=== PATIENT | male | born 1965 | race Caucasian/White ===

== ENCOUNTER 2017-11-01 13:02 | Inpatient (IN) | payer OTHER ==
[2017-11-01 16:02] VITALS: BMI 28.9
--- NOTE | 2017-11-01 18:34 | HP ---
COWS - Scale Resting Pulse: 0= [place] 80 or Below Sweatin=Flushed/Facial Moisture Restless Observation: 3= Extraneous Movement Pupil Size: 0= Normal to Room Light Bone or Joint Aches: 1= Mild Discomfort Runny Nose/ Eye Tearin= Runny Nose/Eyes GI Upset > 30mins: 0= None Tremor Observation: 1= Tremor [place], Not Seen Yawning Observation: 4= Several Times/Minute Anxiety or Irritability: 2=Irritable/Anxious Goose Flesh Skin: 3=Piloerection COWS Score: 18 Admission [facility] - HPI Chief Complaint: "I don't feel well, I am here for detox, I anxious and shaky" Allergies/Adverse Reactions: Allergies Allergy/AdvReac Type Severity Reaction Status Date / Time No Known Allergies Allergy Verified 11/01/17 17:41 History of Present Illness: 52 yo male with hx nicotine, IV heroin and crack/ cocaine dependence. Last detox [facility] February 2016. PMHX: depression, HIV+ not on medication, Hep C, reports poor adherence with medial follow Denies hx of seizures. Reports hx of OD x 7 years ago. - Ebola screening Have you traveled outside of the country in the last 21 days: No Have you had contact with anyone from an Ebola affected area: No Have you been sick,other than usual withdrawal symptoms: No - Review of Systems Constitutional: Chills, Loss of Appetite, Unintentional Wgt. Loss EENT: reports: No Symptoms Reported Respiratory: reports: No Symptoms reported Cardiac: reports: No Symptoms Reported GI: reports: No Symptoms Reported Musculoskeletal: reports: No Symptoms Reported Integumentary: reports: No Symptoms Reported Neuro: reports: No Symptoms reported Endocrine: reports: Unexplained Weight Loss Hematology: reports: No Symptoms Reported Psychiatric: reports: Orientated x3, Depressed Other Systems: Reviewed and Negative Patient History - Patient Medical History Hx Anemia: No Hx Asthma: No Hx Chronic Obstructive Pulmonary Disease (COPD): No Hx Cancer: No Hx Cardiac Disorders: No Hx Congestive Heart Failure: No Hx Hypertension: No Hx Hypercholesterolemia: No Hx Pacemaker: No HX Cerebrovascular Accident: No Hx Seizures: No Hx Dementia: No Hx Diabetes: No Hx Gastrointestinal Disorders: No Hx Liver Disease: Yes (Hep C ) Hx Genitourinary Disorders: No Hx Sexually Transmitted Disorders: No Hx Renal Disease (ESRD): No Hx Thyroid Disease: No Hx Human Immunodeficiency Virus (HIV): Yes (NO MEDS IN 2 YRS.SINCE 1984) Hx Hepatitis C: Yes (PENDING TREATMENT) Hx Depression: Yes Hx Suicide Attempt: No Hx Bipolar Disorder: No Hx Schizophrenia: No - Patient Surgical History Past Surgical History: Yes Hx Abdominal Surgery: Yes (peptic ulcer 1994) Other Surgical History: I&D OF ABSCESS RT. 4TH FINGER. - PPD History Previous Implant?: Yes Documented Results: Positive w/o proof Implanted On Prior [facility] Admission?: No Results: CXR neg 08/25 PPD to be Administered?: Yes - Reproductive History Patient is a Female of Child Bearing Age (11 -55 yrs old): No - Smoking Cessation Smoking history: Current every day smoker Have you smoked in the past 12 months: Yes Aproximately how many cigarettes per day: 5 Hx Chewing Tobacco Use: No Initiated information on smoking cessation: Yes 'Breaking Loose' booklet given: 11/01/17 - Substance & Tx. History Hx Alcohol Use: No Hx Substance Use: Yes Substance Use Type: Cocaine, Heroin Hx Substance Use Treatment: Yes ([facility] February 2016) - Substances Abused Heroin Route: Injection Frequency: Daily Amount used: 7-8 bags Age of first use: 15 Date of Last Use: 11/01/17 Crack Route: Smoking Frequency: Daily Amount used: 5 bags Age of first use: 28 Date of Last Use: 10/31/17 Family Disease History - Family Disease History Family Disease History: Diabetes: Father (ALCOHOL), Brother, Other: Father Admission Physical Exam BHS - Vital Signs Vital Signs: Vital Signs - 24 hr 11/01/17 15:56 Temperature 97.1 F L Pulse Rate 69 Respiratory 20 Rate Blood Pressure 105/65 - Physical General Appearance: Yes: Disheveled, Thin, Sweating, Anxious HEENTM: Yes: Hearing grossly Normal, Normal ENT Inspection, Normocephalic, Normal Voice, Pharynx Normal, Tm's normal Respiratory: Yes: Chest Non-Tender, Lungs Clear, Normal Breath Sounds, No Respiratory Distress, No Accessory Muscle Use Neck: Yes: No masses,lesions,Nodules, Trachea in good position Breast: Yes: Breast Exam Deferred Cardiology: Yes: Regular Rhythm, Regular Rate, S1, S2, Murmur Abdominal: Yes: Normal Bowel Sounds, Non Tender, Flat, Soft, Surgical Scar ( when squeeze has mild pus, as per patient thisis chronic and has been occuring for years) Genitourinary: Yes: Within Normal Limits Back: Yes: Normal Inspection Musculoskeletal: Yes: Within Normal Limits Extremities: Yes: Normal Capillary Refill, Normal Inspection, Normal Range of Motion, Non-Tender Neurological: Yes: metal filer II-XII NML intact, Fully Oriented, Alert, Motor Strength 5/5, Depressed Affect Integumentary: Yes: Dry, Warm, Track Dhaliwal (different healing stages forearms, no signs of infection), Other (healed vertical surgical scar on the abdomen, when press area has mild pus without ordor) Lymphatic: Yes: Within Normal Limits - Diagnostic (1) Poor compliance with medication Current Visit: Yes Status: Chronic (2) Cocaine dependence, uncomplicated Current Visit: Yes Status: Chronic (3) Opioid dependence with withdrawal Current Visit: Yes Status: Acute (4) Positive PPD Current Visit: Yes Status: Chronic (5) HIV (human immunodeficiency virus infection) Current Visit: Yes Status: Chronic Comment: Reports no medication taken for 2 years and no follow up with medical care (6) Hepatitis C Current Visit: Yes Status: Chronic Qualifiers: Viral hepatitis chronicity: chronic Comment: Patient reports no treatment (7) Nicotine dependence Current Visit: Yes Status: Chronic Qualifiers: Nicotine product type: cigarettes Substance use status: uncomplicated Qualified Code(s): F17.210 - Nicotine dependence, cigarettes, uncomplicated (8) Weight loss Current Visit: Yes Status: Chronic (9) Murmur, cardiac Current Visit: Yes Status: Chronic (10) Cheilitis Current Visit: Yes Status: Acute (11) Skin infection Current Visit: Yes Status: Chronic Cleared for Admission [facility] - Detox or Rehab [facility] Level of Care: Medically Managed Detox Regimen/Protocol: Methadone [facility] Breath Alcohol Content Breath Alcohol Content: 0 Urine Drug Screen - Results Drug Screen Negative: No Urine Drug Screen Results: SHUN-Cocaine, OPI-Opiates
[2017-11-01] MEDS ORDERED: LOPERAMIDE HCL 2 MG CAPSULE PO PRN (18:59)
[2017-11-01] MEDS ORDERED: MAGNESIUM CITRATE 300 ML BOTTLE PO PRN (18:59)
[2017-11-01] MEDS ORDERED: NICOTINE POLACRILEX 2 MG GUM BC PRN (18:59)
[2017-11-01] MEDS ORDERED: P-EPHED 60MG/TRIPROLIDI 2.5MG TABLET PO PRN (18:59)
[2017-11-01] MEDS ORDERED: MENTHOL/PHENOL 1 EACH UD MM PRN (18:59)
[2017-11-01] MEDS ORDERED: guaiFENesin/D-METHORPHAN HB 10 ML UNIT-DOSE CUPS PO PRN (18:59)
[2017-11-01] MEDS ORDERED: MAG HYDROX/AL HYDROX/SIMETH 30 ML UNIT-DOSE CUP PO PRN (18:59)
[2017-11-01] MEDS ORDERED: MAGNESIUM HYDROX 2400MG/30ML ORAL SUSPENSION 30 ML CUP PO PRN (18:59)
[2017-11-01] MEDS ORDERED: IBUPROFEN 400 MG TABLET (FP) PO PRN (18:59)
[2017-11-01] MEDS ORDERED: METHADONE HCL 10 MG TABLET (FOR DETOX USE ONLY) PO ONE ×2 (18:59→23:00)
[2017-11-01] MEDS ORDERED: ACETAMINOPHEN 325 MG TABLET (FP) PO PRN (18:59)
[2017-11-01] MEDS: diazePAM 5 MG TABLET PO PRN (20:52)
[2017-11-01] MEDS: SULFAMETHOXAZOLE/TRIMETHOPRIM 800MG/160MG D.S. TABLET PO SCH (22:37)
[2017-11-01] MEDS: THIAMINE HCL 100 MG TABLET (FP) PO SCH (22:37)
[2017-11-01 23:58] LABS: URINE APPEARANCE SLCLOUDY; URINE BILIRUBIN NEGATIVE (NEGATIVE); URINE BLOOD NEGATIVE (NEGATIVE); URINE COLOR YELLOW; URINE GLUCOSE (UA) NEGATIVE (NEGATIVE); URINE KETONE NEGATIVE (NEGATIVE); URINE LEUK ESTERASE NEGATIVE (NEGATIVE); URINE NITRITE NEGATIVE (NEGATIVE); URINE PROTEIN NEGATIVE (NEGATIVE)
--- NOTE | 2017-11-02 09:29 | CONSULT ---
[facility] Psychiatric Consult - Data Date of interview: 11/02/17 Admission source: [facility] Identifying data: This is 52 years old male, single, unemployed, homeless, with no psychiatric hospitalization history, with Nicotine, IV Heroin and Crack/ Cocaine dependence. Last detox [facility] February 2016. Substance Abuse History: Smoking Cessation. Smoking history: Current every day smoker. Have you smoked in the past 12 months: Yes. Aproximately how many cigarettes per day: 5. Hx Chewing Tobacco Use: No. Initiated information on smoking cessation: Yes. 'Breaking Loose' booklet given: 11/01/17. - Substance & Tx. History. Hx Alcohol Use: No. Hx Substance Use: Yes. Substance Use Type : Cocaine, Heroin. Hx Substance Use Treatment: Yes ([facility] February 2016). - Substances Abused. Heroin. Route: Injection. Frequency: Daily. Amount used: 7-8 bags. Age of first use: 15. Date of Last Use: 11/01/17. Crack. Route: Smoking. Frequency: Daily. Amount used: 5 bags. Age of first use: 28. Date of Last Use: 10/31/17 Medical History: PPD+ history, HIV+, HepC+, Weight loss history, Cardiac murmur history Psychiatric History: Denies past psychiatric history Physical/Sexual Abuse/Trauma History: Denies Additional Comment: Observation. Detox Unit Care Protocol Mental Status Exam - Mental Status Exam Cognitive Function: Fair Patient Appearance: Unkempt Mood: Sad Affect: Flat Patient Behavior: Sedated Speech Pattern: Delayed Voice Loudness: Mildly Soft/Quiet Thought Process: Circumstantial Thought Disorder: Being Controlled Hallucinations: Denies Suicidal Ideation: Denies Homicidal Ideation: Denies Sleep: Difficulty falling asleep Appetite: Weight loss Muscle strength/Tone: Mild Hypotonicity Gait/Station: Shuffling Additional Comments: Observation. Detox Unit Care Protocol Psychiatric Findings - Problem List ([place] 1, 2,3) (1) Drug-induced mood disorder Current Visit: Yes Status: Suspected (2) Opioid dependence with withdrawal Current Visit: Yes Status: Acute (3) Cocaine dependence, uncomplicated Current Visit: Yes Status: Chronic (4) Nicotine dependence Current Visit: Yes Status: Chronic Qualifiers: Nicotine product type: cigarettes Substance use status: uncomplicated Qualified Code(s): F17.210 - Nicotine dependence, cigarettes, uncomplicated (5) Poor compliance with medication Current Visit: Yes Status: Chronic (6) Weight loss Current Visit: Yes Status: Chronic - Initial Treatment Plan Initial Treatment Plan: Observation. Detox Unit Care Protocol
--- NOTE | 2017-11-02 09:40 | PN ---
BHS COWS - Scale Resting Pulse: 0= [place] 80 or Below Sweatin= Chills/Flushing Restless Observation: 1= Difficult to Sit Still Pupil Size: 1= Pupils >than Normal Bone or Joint Aches: 1= Mild Discomfort Runny Nose/ Eye Tearin= Nasal Congestion GI Upset > 30mins: 1= Stomach Cramp Tremor Observation of Outstretched Hands: 2= Slight Tremor Visible Yawning Observation: 2= >3x During Session Anxiety or Irritability: 2=Irritable/Anxious Goose Flesh Skin: 3=Piloerection COWS Score: 15 BHS Progress Note (SOAP) Subjective: general body ache GI upset stuffy nose restlessness sweat tremor Objective: 11/02/17 09:39 Vital Signs Temperature 97.3 F L 11/02/17 06:18 Pulse Rate 63 11/02/17 06:18 Respiratory Rate 18 11/02/17 06:18 Blood Pressure 131/76 11/02/17 06:18 O2 Sat by Pulse Oximetry (%) Laboratory Last Values Urine Color Yellow 11/01/17 23:40 Urine Appearance Slcloudy 11/01/17 23:40 Urine pH 6.0 (5.0-8.0) 11/01/17 23:40 Ur Specific [place] 1.023 (1.001-1.035) 11/01/17 23:40 Urine Protein Negative (NEGATIVE) 11/01/17 23:40 Urine Glucose (UA) Negative (NEGATIVE) 11/01/17 23:40 Urine Ketones Negative (NEGATIVE) 11/01/17 23:40 Urine Blood Negative (NEGATIVE) 11/01/17 23:40 Urine Nitrite Negative (NEGATIVE) 11/01/17 23:40 Urine Bilirubin Negative (NEGATIVE) 11/01/17 23:40 Urine Urobilinogen 2.0 mg/dL (0.2-1.0) 11/01/17 23:40 Ur Leukocyte Esterase Negative (NEGATIVE) 11/01/17 23:40 lab noted Assessment: 11/02/17 09:39 withdrawal sx Plan: continue detox
[2017-11-02] MEDS ORDERED: METHADONE HCL 10 MG TABLET (FOR DETOX USE ONLY) PO ONE (10:00)
[2017-11-02 10:10] LABS: HEMATOCRIT 34.5 % (35.4-49); HEMOGLOBIN 11.5 GM/dL (11.7-16.9); MCH 29.4 pg (25.7-33.7); MCHC 33.4 g/dl (32.0-35.9); MEAN CELL VOLUME 88.2 fl (80-96); PLATELET COUNT 199 K/MM3 (134-434); RBC 3.91 M/mm3 (4.00-5.60); WHITE BLOOD COUNT 2.8 K/mm3 (4.0-10.0)
[2017-11-02 10:16] LABS: CHLORIDE 107 mmol/L (98-107); POTASSIUM 4.2 mmol/L (3.5-5.1); SODIUM 139 mmol/L (136-145)
[2017-11-02] MEDS: PRENATAL VITAMINS W/ FOLIC ACID TABLET (FP) PO SCH (10:20)
[2017-11-02] MEDS: diazePAM 5 MG TABLET PO PRN (10:20)
[2017-11-02] MEDS: SULFAMETHOXAZOLE/TRIMETHOPRIM 800MG/160MG D.S. TABLET PO SCH ×2 (10:20→22:32)
[2017-11-02] MEDS: NICOTINE 14 MG/24 HOURS TOPICAL PATCH TD SCH (10:22)
[2017-11-02 10:27] LABS: ALBUMIN 2.5 g/dl (3.4-5.0); ALK PHOS 86 U/L (45-117); ANION GAP 6 (8-16); BILIRUBIN,TOTAL 0.4 mg/dL (0.2-1.0); BLOOD UREA NITROGEN 9 mg/dL (7-18); CALCIUM 7.4 mg/dL (8.5-10.1); CO2 26 mmol/L (21-32); CREATININE 0.7 mg/dL (0.7-1.3); GLUCOSE,RANDOM 82 mg/dL (74-106); SGOT/AST 22 U/L (15-37); SGPT/ALT 25 U/L (12-78); TOT PROT 7.6 g/dl (6.4-8.2)
--- NOTE | 2017-11-02 16:12 | EKG ---
Test Reason : Blood Pressure : / mmHG Vent. Rate : 063 BPM Atrial Rate : 063 BPM P-R Int : 126 ms QRS Dur : 070 ms QT Int : 434 ms P-R-T Axes : 065 074 078 degrees QTc Int : 444 ms NORMAL SINUS RHYTHM NORMAL ECG NO PREVIOUS ECGS AVAILABLE Confirmed by BRITTNEY BARRERA MD ([id number]) on 11/02/2017 4:12:21 PM Referred By: Confirmed By:BRITTNEY BARRERA MD
[2017-11-02 16:48] LABS: RPR REACTIVE 1:1 (NONREACTIVE)
[2017-11-02 16:49] LABS: TREPONEMA ANTIBODY PREVIOUSLY REACTIVE (NONREACTIVE)
--- NOTE | 2017-11-02 17:31 | PN ---
BHS Progress Note Note: called by nurse rpr and cofirmatory test +ve, old has been treated in past, pateint qaware.
[2017-11-02] MEDS: THIAMINE HCL 100 MG TABLET (FP) PO SCH (22:32)
[2017-11-03] MEDS ORDERED: METHADONE HCL 5 MG TABLET (FOR DETOX USE ONLY) PO ONE (10:00)
[2017-11-03] MEDS: SULFAMETHOXAZOLE/TRIMETHOPRIM 800MG/160MG D.S. TABLET PO SCH ×2 (10:26→22:29)
[2017-11-03] MEDS: PRENATAL VITAMINS W/ FOLIC ACID TABLET (FP) PO SCH (10:26)
[2017-11-03] MEDS: diazePAM 5 MG TABLET PO PRN (10:27)
[2017-11-03] MEDS: NICOTINE 14 MG/24 HOURS TOPICAL PATCH TD SCH (10:27)
--- NOTE | 2017-11-03 10:41 | PN ---
BHS COWS - Scale Resting Pulse: 1= [place] 81-100 Sweatin= Chills/Flushing Restless Observation: 3= Extraneous Movement Pupil Size: 1= Pupils >than Normal Bone or Joint Aches: 2= Severe Diffuse Aches Runny Nose/ Eye Tearin= Runny Nose/Eyes GI Upset > 30mins: 2= Nausea/Diarrhea Tremor Observation of Outstretched Hands: 2= Slight Tremor Visible Yawning Observation: 1= 1-2x During Session Anxiety or Irritability: 2=Irritable/Anxious Goose Flesh Skin: 0=Smooth Skin COWS Score: 17 S Progress Note (SOAP) Subjective: ALERT,IRRITABLE,ANXIOUS,INTERRUPTED SLEEP,TREMOR,PAIN IN THE BODY,BACK, EXTREMITIES Objective: 11/03/17 10:39 Vital Signs Temperature 99.3 F 11/03/17 10:00 Pulse Rate 93 H 11/03/17 10:00 Respiratory Rate 18 11/03/17 10:00 Blood Pressure 119/71 11/03/17 10:00 O2 Sat by Pulse Oximetry (%) WITHDRAWAL SYMPTOM 11/03/17 10:40 Laboratory Last Values WBC 2.8 K/mm3 (4.0-10.0) L D 11/02/17 06:00 RBC 3.91 M/mm3 (4.00-5.60) L 11/02/17 06:00 Hgb 11.5 GM/dL (11.7-16.9) L 11/02/17 06:00 Hct 34.5 % (35.4-49) L 11/02/17 06:00 MCV 88.2 fl (80-96) 11/02/17 06:00 MCH 29.4 pg (25.7-33.7) 11/02/17 06:00 MCHC 33.4 g/dl (32.0-35.9) 11/02/17 06:00 RDW 16.0 % (11.9-15.9) H 11/02/17 06:00 Plt Count 199 K/MM3 (134-434) D 11/02/17 06:00 MPV 8.0 fl (7.5-11.1) D 11/02/17 06:00 Sodium 139 mmol/L (136-145) 11/02/17 06:00 Potassium 4.2 mmol/L (3.5-5.1) 11/02/17 06:00 Chloride 107 mmol/L (98-107) 11/02/17 06:00 Carbon Dioxide 26 mmol/L (21-32) 11/02/17 06:00 Anion Gap 6 (8-16) L 11/02/17 06:00 BUN 9 mg/dL (7-18) D 11/02/17 06:00 Creatinine 0.7 mg/dL (0.7-1.3) 11/02/17 06:00 Creat Clearance w eGFR > 60 (>60) 11/02/17 06:00 Random Glucose 82 mg/dL (74-106) 11/02/17 06:00 Calcium 7.4 mg/dL (8.5-10.1) L 11/02/17 06:00 Total Bilirubin 0.4 mg/dL (0.2-1.0) D 11/02/17 06:00 AST 22 U/L (15-37) 11/02/17 06:00 ALT 25 U/L (12-78) D 11/02/17 06:00 Alkaline Phosphatase 86 U/L (45-117) 11/02/17 06:00 Total Protein 7.6 g/dl (6.4-8.2) 11/02/17 06:00 Albumin 2.5 g/dl (3.4-5.0) L D 11/02/17 06:00 Urine Color Yellow 11/01/17 23:40 Urine Appearance Slcloudy 11/01/17 23:40 Urine pH 6.0 (5.0-8.0) 11/01/17 23:40 Ur Specific [place] 1.023 (1.001-1.035) 11/01/17 23:40 Urine Protein Negative (NEGATIVE) 11/01/17 23:40 Urine Glucose (UA) Negative (NEGATIVE) 11/01/17 23:40 Urine Ketones Negative (NEGATIVE) 11/01/17 23:40 Urine Blood Negative (NEGATIVE) 11/01/17 23:40 Urine Nitrite Negative (NEGATIVE) 11/01/17 23:40 Urine Bilirubin Negative (NEGATIVE) 11/01/17 23:40 Urine Urobilinogen 2.0 mg/dL (0.2-1.0) 11/01/17 23:40 Ur Leukocyte Esterase Negative (NEGATIVE) 11/01/17 23:40 RPR Titer Reactive 1:1 (NONREACTIVE) H 11/02/17 06:00 T.pallidum Ab (MHA) Previously reactive (NONREACTIVE) 11/02/17 06:00 11/03/17 10:41 PREVIOUSLY TREATED FOR SYPHILIS Assessment: 11/03/17 10:42 WITHDRAWAL SYMPTOM Plan: CONTINUE DETOX
[2017-11-03] MEDS: THIAMINE HCL 100 MG TABLET (FP) PO SCH (22:29)
[2017-11-04] MEDS ORDERED: METHADONE HCL 5 MG TABLET (FOR DETOX USE ONLY) PO ONE (10:00)
[2017-11-04] MEDS: SULFAMETHOXAZOLE/TRIMETHOPRIM 800MG/160MG D.S. TABLET PO SCH ×2 (10:47→22:04)
[2017-11-04] MEDS: PRENATAL VITAMINS W/ FOLIC ACID TABLET (FP) PO SCH (10:47)
[2017-11-04] MEDS: NICOTINE 14 MG/24 HOURS TOPICAL PATCH TD SCH (10:48)
[2017-11-04] MEDS: diazePAM 5 MG TABLET PO PRN (17:37)
--- NOTE | 2017-11-04 20:26 | PN ---
BHS Progress Note (SOAP) Subjective: shakes sleep disturbance nasal congestion Objective: 11/04/17 20:26 A & O x 3 Vital Signs Temperature 96.1 F L 11/04/17 18:11 Pulse Rate 78 11/04/17 18:11 Respiratory Rate 20 11/04/17 18:11 Blood Pressure 108/59 11/04/17 18:11 O2 Sat by Pulse Oximetry (%) Assessment: 11/04/17 20:26 withdrawal sx Plan: continue detox
[2017-11-04] MEDS: THIAMINE HCL 100 MG TABLET (FP) PO SCH (22:04)
[2017-11-04] MEDS: hydrOXYzine PAMOATE 50 MG CAPSULE (FP) PO PRN (22:05)
[2017-11-05] MEDS ORDERED: METHADONE HCL 10 MG TABLET (FOR DETOX USE ONLY) PO ONE (10:00)
[2017-11-05] MEDS: SULFAMETHOXAZOLE/TRIMETHOPRIM 800MG/160MG D.S. TABLET PO SCH ×2 (10:29→22:21)
[2017-11-05] MEDS: PRENATAL VITAMINS W/ FOLIC ACID TABLET (FP) PO SCH (10:29)
[2017-11-05] MEDS: NICOTINE 14 MG/24 HOURS TOPICAL PATCH TD SCH (10:29)
--- NOTE | 2017-11-05 11:18 | PN ---
BHS Progress Note (SOAP) Subjective: alert oriented x 3 calm social with peers Objective: 11/05/17 11:16 Vital Signs Temperature 97.1 F L 11/05/17 10:00 Pulse Rate 80 11/05/17 10:00 Respiratory Rate 18 11/05/17 10:00 Blood Pressure 133/63 11/05/17 10:00 O2 Sat by Pulse Oximetry (%) Vital Signs Temperature 97.1 F L 11/05/17 10:00 Pulse Rate 80 11/05/17 10:00 Respiratory Rate 18 11/05/17 10:00 Blood Pressure 133/63 11/05/17 10:00 O2 Sat by Pulse Oximetry (%) Laboratory Last Values WBC 2.8 K/mm3 (4.0-10.0) L D 11/02/17 06:00 RBC 3.91 M/mm3 (4.00-5.60) L 11/02/17 06:00 Hgb 11.5 GM/dL (11.7-16.9) L 11/02/17 06:00 Hct 34.5 % (35.4-49) L 11/02/17 06:00 MCV 88.2 fl (80-96) 11/02/17 06:00 MCH 29.4 pg (25.7-33.7) 11/02/17 06:00 MCHC 33.4 g/dl (32.0-35.9) 11/02/17 06:00 RDW 16.0 % (11.9-15.9) H 11/02/17 06:00 Plt Count 199 K/MM3 (134-434) D 11/02/17 06:00 MPV 8.0 fl (7.5-11.1) D 11/02/17 06:00 Sodium 139 mmol/L (136-145) 11/02/17 06:00 Potassium 4.2 mmol/L (3.5-5.1) 11/02/17 06:00 Chloride 107 mmol/L (98-107) 11/02/17 06:00 Carbon Dioxide 26 mmol/L (21-32) 11/02/17 06:00 Anion Gap 6 (8-16) L 11/02/17 06:00 BUN 9 mg/dL (7-18) D 11/02/17 06:00 Creatinine 0.7 mg/dL (0.7-1.3) 11/02/17 06:00 Creat Clearance w eGFR > 60 (>60) 11/02/17 06:00 Random Glucose 82 mg/dL (74-106) 11/02/17 06:00 Calcium 7.4 mg/dL (8.5-10.1) L 11/02/17 06:00 Total Bilirubin 0.4 mg/dL (0.2-1.0) D 11/02/17 06:00 AST 22 U/L (15-37) 11/02/17 06:00 ALT 25 U/L (12-78) D 11/02/17 06:00 Alkaline Phosphatase 86 U/L (45-117) 11/02/17 06:00 Total Protein 7.6 g/dl (6.4-8.2) 11/02/17 06:00 Albumin 2.5 g/dl (3.4-5.0) L D 11/02/17 06:00 Urine Color Yellow 11/01/17 23:40 Urine Appearance Slcloudy 11/01/17 23:40 Urine pH 6.0 (5.0-8.0) 11/01/17 23:40 Ur Specific [place] 1.023 (1.001-1.035) 11/01/17 23:40 Urine Protein Negative (NEGATIVE) 11/01/17 23:40 Urine Glucose (UA) Negative (NEGATIVE) 11/01/17 23:40 Urine Ketones Negative (NEGATIVE) 11/01/17 23:40 Urine Blood Negative (NEGATIVE) 11/01/17 23:40 Urine Nitrite Negative (NEGATIVE) 11/01/17 23:40 Urine Bilirubin Negative (NEGATIVE) 11/01/17 23:40 Urine Urobilinogen 2.0 mg/dL (0.2-1.0) 11/01/17 23:40 Ur Leukocyte Esterase Negative (NEGATIVE) 11/01/17 23:40 RPR Titer Reactive 1:1 (NONREACTIVE) H 11/02/17 06:00 T.pallidum Ab (MHA) Previously reactive (NONREACTIVE) 11/02/17 06:00 lab noted Assessment: 11/05/17 11:17 mild withdrawal sx Plan: medically supervised detox
[2017-11-05] MEDS: NYSTATIN 500,000 UNITS/5 ML SUSPENSION PO SCH ×2 (17:40)
[2017-11-05] MEDS: CALCIUM (OYSTER SHELL) 500 MG TABLET (FP) PO SCH (17:40)
[2017-11-05] MEDS: hydrOXYzine PAMOATE 50 MG CAPSULE (FP) PO PRN (22:21)
[2017-11-05] MEDS: THIAMINE HCL 100 MG TABLET (FP) PO SCH (22:21)
[2017-11-06] MEDS: NYSTATIN 500,000 UNITS/5 ML SUSPENSION PO SCH ×2 (00:03→05:48)
[2017-11-06] MEDS ORDERED: METHADONE HCL 5 MG TABLET (FOR DETOX USE ONLY) PO ONE (06:00)
--- NOTE | 2017-11-06 09:24 | DS ---
[facility] Detox Discharge Summary Admission Date: 11/01/17 Discharge Date: 11/06/17 - History Present History: Cocaine Dependence, Opioid Dependence Additional Comments: FOLLOW UP WITH AFTER [facility] PROGRAM ARRANGEMENT Pertinent Past History: HIV HEPATITIS C NICOTINE DEPENDENCE WEIGHT LOSS - Physical Exam Results Vital Signs: Vital Signs Temperature 96.7 F L 11/06/17 06:05 Pulse Rate 67 11/06/17 06:05 Respiratory Rate 16 11/06/17 06:05 Blood Pressure 107/60 11/06/17 06:05 O2 Sat by Pulse Oximetry (%) Pertinent Admission Physical Exam Findings: WITHDRAWAL SIGNS AND SYMPTOM - Treatment Hospital Course: Detox Protocol Followed, Detoxed Safely, Responded well, Discharged Condition Good, Rehab Referral Accepted Patient has Accepted a Rehab Referral to: [facility] - Medication Discharge Medications: Ambulatory Orders NK [No Known Home Medication] 08/23/15 - Diagnosis (1) Opioid dependence with withdrawal Current Visit: Yes Status: Acute (2) Cocaine dependence, uncomplicated Current Visit: Yes Status: Chronic (3) HIV (human immunodeficiency virus infection) Current Visit: Yes Status: Chronic (4) Hepatitis C Current Visit: Yes Status: Chronic Qualifiers: Viral hepatitis chronicity: chronic (5) Nicotine dependence Current Visit: Yes Status: Chronic Qualifiers: Nicotine product type: cigarettes Substance use status: uncomplicated Qualified Code(s): F17.210 - Nicotine dependence, cigarettes, uncomplicated (6) Weight loss Current Visit: Yes Status: Chronic - AMA Did Patient Leave Against Medical Advice: No
[2017-11-06] MEDS: PRENATAL VITAMINS W/ FOLIC ACID TABLET (FP) PO SCH (10:55)
[2017-11-06] MEDS: CALCIUM (OYSTER SHELL) 500 MG TABLET (FP) PO SCH (10:55)
[2017-11-06] MEDS: SULFAMETHOXAZOLE/TRIMETHOPRIM 800MG/160MG D.S. TABLET PO SCH (10:55)
[2017-11-06] MEDS: NICOTINE 14 MG/24 HOURS TOPICAL PATCH TD SCH (10:55)
[2017-11-06 11:01] VITALS: BP 106/69; PULSE 80; TEMP 97.1
== END 2017-11-06 11:01 | disposition home or self-care (01) | DRG 773 ==
LOC: YASAS 13:02 → Y6N 18:16
PROVIDERS: ADMIT Internal Medicine; ATTEND Internal Medicine
PROC: HZ2ZZZZ Detoxification Services for Substance Abuse Treatment (ICD-10-PCS; principal; 2017-11-01)
DX: F11.23 Opioid dependence with withdrawal (principal); F14.20 Cocaine dependence, uncomplicated; F17.210 Nicotine dependence, cigarettes, uncomplicated; F19.24 Other psychoactive substance dependence with psychoactive substance-induced mood disorder; Z21 Asymptomatic human immunodeficiency virus [HIV] infection status; R00.1 Bradycardia, unspecified; R63.4 Abnormal weight loss; Z68.28 Body mass index [BMI] 28.0-28.9, adult; Z59.0 Homelessness; K13.0 Diseases of lips
CPT/HCPCS: 36415; 71046-TC-FY; 80053; 81003; 85027; 86593; 86780; 93005; 93010

== ENCOUNTER 2017-12-18 17:28 | Inpatient (IN) | payer OTHER ==
[2017-12-18 19:32] VITALS: BMI 19.2
[2017-12-18] MEDS ORDERED: METHADONE HCL 10 MG TABLET (FOR DETOX USE ONLY) PO ONE ×2 (23:00→23:28)
--- NOTE | 2017-12-18 23:20 | HP ---
COWS - Scale Resting Pulse: 0= [place] 80 or Below Sweatin=Flushed/Facial Moisture Restless Observation: 1= Difficult to Sit Still Pupil Size: 1= Pupils >than Normal Bone or Joint Aches: 2= Severe Diffuse Aches Runny Nose/ Eye Tearin= Runny Nose/Eyes GI Upset > 30mins: 3= Vomiting/Diarrhea (DIARRRHEA X 3) Tremor Observation: 2= Slight Tremor Visible Yawning Observation: 1= 1-2x During Session Anxiety or Irritability: 4=Extreme Anxiety Goose Flesh Skin: 0=Smooth Skin COWS Score: 18 Admission [facility] Chief Complaint: Heroin withdrawal symptoms Allergies/Adverse Reactions: Allergies Allergy/AdvReac Type Severity Reaction Status Date / Time No Known Allergies Allergy Verified 11/01/17 17:41 History of Present Illness: 52 years old male with a long history of heroin dependence is seeking admission to detox. Patient has been to previous detox, last 11/01- 11/06/2017. Reports insignificant period of sobriety. Patient has medical history of HIV+, Hep. C, seizures, Depression and PPD positive. He denies suicidal ideation at this time. Exam Limitations: No Limitations - Ebola screening Have you traveled outside of the country in the last 21 days: No Have you had contact with anyone from an Ebola affected area: No Have you been sick,other than usual withdrawal symptoms: No Do you have a fever: No - Review of Systems Constitutional: Loss of Appetite, Malaise, Night Sweats, Changes in sleep, Weakness EENT: reports: Nose Congestion Respiratory: reports: No Symptoms reported Cardiac: reports: No Symptoms Reported GI: reports: Diarrhea (x 4), Nausea, Poor Appetite, Poor Fluid Intake, Abdominal cramping : reports: No Symptoms Reported Musculoskeletal: reports: No Symptoms Reported Integumentary: reports: Dryness, Flushing, Pruritus Neuro: reports: Tingling, Tremors Endocrine: reports: No Symptoms Reported Hematology: reports: No Symptoms Reported Psychiatric: reports: Agitated, Anxious, Depressed Other Systems: Reviewed and Negative Patient History - Patient Medical History Hx Anemia: No Hx Asthma: No Hx Chronic Obstructive Pulmonary Disease (COPD): No Hx Cancer: No Hx Cardiac Disorders: No Hx Congestive Heart Failure: No Hx Hypertension: No Hx Hypercholesterolemia: No Hx Pacemaker: No HX Cerebrovascular Accident: No Hx Seizures: Yes (Not on medication) Hx Dementia: No Hx Diabetes: No Hx Gastrointestinal Disorders: No Hx Liver Disease: Yes (Hep C ) Hx Genitourinary Disorders: No Hx Sexually Transmitted Disorders: No Hx Renal Disease (ESRD): No Hx Thyroid Disease: No Hx Human Immunodeficiency Virus (HIV): Yes (NOT ON MEDICATION SINCE 1984) Hx Hepatitis C: Yes (PENDING TREATMENT) Hx Depression: Yes (Not on medication) Hx Suicide Attempt: No Hx Bipolar Disorder: No Hx Schizophrenia: No - Patient Surgical History Past Surgical History: Yes Hx Abdominal Surgery: Yes (peptic ulcer 1994) Other Surgical History: I&D OF ABSCESS RT. 4TH FINGER. - PPD History Results: CXR neg 08/25 - Smoking Cessation Smoking history: Current every day smoker Have you smoked in the past 12 months: Yes Aproximately how many cigarettes per day: 10 Hx Chewing Tobacco Use: No Initiated information on smoking cessation: Yes 'Breaking Loose' booklet given: 12/18/17 - Substance & Tx. History Hx Alcohol Use: No Hx Substance Use: Yes Substance Use Type: Heroin Hx Substance Use Treatment: Yes ([facility]) - Substances Abused Heroin Route: Injection Frequency: Daily Amount used: 15 BAGS Age of first use: 14 Date of Last Use: 12/18/17 Cocaine Route: Smoking Frequency: Daily Amount used: 6 BAGS Age of first use: 16 Date of Last Use: 12/18/17 Family Disease History - Family Disease History Family Disease History: Diabetes: Father (ALCOHOL), Brother, Other: Father Admission Physical Exam S - Vital Signs Vital Signs: Vital Signs - 24 hr 12/18/17 19:30 Temperature 97.7 F Pulse Rate 80 Respiratory 18 Rate Blood Pressure 155/90 - Physical General Appearance: Yes: Moderate Distress, Thin, Tremorous, Irritable, Sweating , Anxious HEENTM: Yes: EOMI, Normocephalic, Normal Voice, MIA Respiratory: Yes: Lungs Clear, Normal Breath Sounds, No Respiratory Distress Neck: Yes: Supple Breast: Yes: Breast Exam Deferred Cardiology: Yes: Regular Rhythm, Regular Rate, S1, S2 Abdominal: Yes: Normal Bowel Sounds, Soft Genitourinary: Yes: Within Normal Limits Back: Yes: Normal Inspection Musculoskeletal: Yes: Within Normal Limits Neurological: Yes: Alert, Normal Mood/Affect Integumentary: Yes: Dry, Pale, Track Dhaliwal (both legs and hands) Lymphatic: Yes: Within Normal Limits - Diagnostic (1) Seizures Current Visit: Yes Status: Chronic (2) Opioid dependence with withdrawal Current Visit: Yes Status: Chronic (3) Cocaine dependence, uncomplicated Current Visit: Yes Status: Chronic (4) HIV (human immunodeficiency virus infection) Current Visit: Yes Status: Chronic Comment: Reports no medication taken for 2 years and no follow up with medical care (5) Hepatitis C Current Visit: Yes Status: Chronic Qualifiers: Viral hepatitis chronicity: chronic Comment: Patient reports no treatment (6) Nicotine dependence Current Visit: Yes Status: Chronic Qualifiers: Nicotine product type: cigarettes Substance use status: uncomplicated Qualified Code(s): F17.210 - Nicotine dependence, cigarettes, uncomplicated (7) Poor compliance with medication Current Visit: No Status: Chronic (8) Positive PPD Current Visit: Yes Status: Chronic (9) Skin infection Current Visit: No Status: Chronic (10) Weight loss Current Visit: Yes Status: Chronic Cleared for Admission S - Detox or Rehab [facility] Level of Care: Medically Managed Detox Regimen/Protocol: Methadone [facility] Breath Alcohol Content Breath Alcohol Content: 0 Urine Drug Screen - Results Drug Screen Negative: No Urine Drug Screen Results: SHUN-Cocaine, OPI-Opiates
[2017-12-18] MEDS ORDERED: MAGNESIUM CITRATE 300 ML BOTTLE PO PRN (23:28)
[2017-12-18] MEDS ORDERED: ACETAMINOPHEN 325 MG TABLET (FP) PO PRN (23:28)
[2017-12-18] MEDS ORDERED: P-EPHED 60MG/TRIPROLIDI 2.5MG TABLET PO PRN (23:28)
[2017-12-18] MEDS ORDERED: LOPERAMIDE HCL 2 MG CAPSULE PO PRN (23:28)
[2017-12-18] MEDS ORDERED: MENTHOL/PHENOL 1 EACH UD MM PRN (23:28)
[2017-12-18] MEDS ORDERED: MAG HYDROX/AL HYDROX/SIMETH 30 ML UNIT-DOSE CUP PO PRN (23:28)
[2017-12-18] MEDS ORDERED: NICOTINE POLACRILEX 2 MG GUM BC PRN (23:28)
[2017-12-18] MEDS ORDERED: MAGNESIUM HYDROX 2400MG/30ML ORAL SUSPENSION 30 ML CUP PO PRN (23:28)
[2017-12-18] MEDS ORDERED: diazePAM 5 MG TABLET PO PRN (23:28)
[2017-12-18] MEDS ORDERED: guaiFENesin/D-METHORPHAN HB 10 ML UNIT-DOSE CUPS PO PRN (23:28)
[2017-12-19] MEDS ORDERED: METHADONE HCL 10 MG TABLET (FOR DETOX USE ONLY) PO ONE ×4 (02:07→23:00)
--- NOTE | 2017-12-19 10:11 | PN ---
[facility] COWS - Scale Resting Pulse: 0= [place] 80 or Below Sweatin= Chills/Flushing Restless Observation: 3= Extraneous Movement Pupil Size: 1= Pupils >than Normal Bone or Joint Aches: 2= Severe Diffuse Aches Runny Nose/ Eye Tearin= Runny Nose/Eyes GI Upset > 30mins: 2= Nausea/Diarrhea Tremor Observation of Outstretched Hands: 2= Slight Tremor Visible Yawning Observation: 1= 1-2x During Session Anxiety or Irritability: 2=Irritable/Anxious Goose Flesh Skin: 0=Smooth Skin COWS Score: 16 BHS Progress Note (SOAP) Subjective: ALERT,IRRITABLE,ANXIOUS,INTERRUPTED SLEEP,TREMOR,PAIN IN THE BODY AND BACK Objective: 12/19/17 10:10 Vital Signs Temperature 97 F L 12/19/17 06:13 Pulse Rate 90 12/19/17 06:13 Respiratory Rate 18 12/19/17 06:13 Blood Pressure 114/68 12/19/17 06:13 O2 Sat by Pulse Oximetry (%) EKG NSR,NORMAL ECG LABS PENDING Assessment: 12/19/17 10:11 WITHDRAWAL SYMPTOM Plan: CONTINUE DETOX
[2017-12-19 10:26] LABS: HEMATOCRIT 29.3 % (35.4-49); HEMOGLOBIN 10.2 GM/dL (11.7-16.9); MCH 31.4 pg (25.7-33.7); MCHC 34.8 g/dl (32.0-35.9); MEAN CELL VOLUME 90.2 fl (80-96); MEAN PLT VOLUME 8.1 fl (7.5-11.1); PLATELET COUNT 176 K/MM3 (134-434); RBC 3.25 M/mm3 (4.00-5.60); WHITE BLOOD COUNT 2.4 K/mm3 (4.0-10.0)
--- NOTE | 2017-12-19 10:41 | EKG ---
Test Reason : Blood Pressure : / mmHG Vent. Rate : 075 BPM Atrial Rate : 075 BPM P-R Int : 124 ms QRS Dur : 078 ms QT Int : 380 ms P-R-T Axes : 073 075 079 degrees QTc Int : 424 ms NORMAL SINUS RHYTHM NORMAL ECG WHEN COMPARED WITH ECG OF 01-NOV-2017 21:01, NO SIGNIFICANT CHANGE WAS FOUND Confirmed by MD Hawthorne Daniel ([id number]) on 12/19/2017 10:41:04 AM Referred By: Confirmed By:Luis Alberto Hawthorne MD
[2017-12-19] MEDS: PRENATAL VITAMINS W/ FOLIC ACID TABLET (FP) PO SCH (10:43)
[2017-12-19] MEDS: NICOTINE 14 MG/24 HOURS TOPICAL PATCH TD SCH (10:43)
[2017-12-19 10:50] LABS: ANION GAP 8 (8-16); BILIRUBIN,TOTAL 0.2 mg/dL (0.2-1.0); BLOOD UREA NITROGEN 15 mg/dL (7-18); CALCIUM 8.3 mg/dL (8.5-10.1); CHLORIDE 101 mmol/L (98-107); CO2 29 mmol/L (21-32); CREATININE 0.7 mg/dL (0.7-1.3); GLUCOSE,RANDOM 95 mg/dL (74-106); POTASSIUM 4.1 mmol/L (3.5-5.1); SGOT/AST 25 U/L (15-37); SGPT/ALT 22 U/L (12-78); SODIUM 138 mmol/L (136-145); TOT PROT 7.9 g/dl (6.4-8.2)
[2017-12-19 10:51] LABS: ALK PHOS 71 U/L (45-117)
--- NOTE | 2017-12-19 11:45 | CONSULT ---
[facility] Psychiatric Consult - Data Date of interview: 12/19/17 Admission source: [facility] Identifying data: Pt. is a 52 year old single male, without kids, unemployed, and living with his sister. This is one of multiple admissions for patient. Pt. admitted to for opiate and cocaine dependence. Substance Abuse History: Following information confirmed with Mr. Barkley: Smoking Cessation. Smoking history: Current every day smoker. Have you smoked in the past 12 months: Yes. Aproximately how many cigarettes per day: 10. Hx Chewing Tobacco Use: No. Initiated information on smoking cessation: Yes. ' Breaking Loose' booklet given: 12/18/17. - Substance & Tx. History. Hx Alcohol Use: No. Hx Substance Use: Yes. Substance Use Type: Heroin. Hx Substance Use Treatment: Yes ([facility]). - Substances Abused. Heroin. Route: Injection. Frequency: Daily. Amount used: 15 BAGS. Age of first use: 14. Date of Last Use: 12/18/17. Cocaine. Route: Smoking. Frequency: Daily. Amount used: 6 BAGS. Age of first use: 16. Date of Last Use: 12/18/17 Medical History: Seizures, Hep C Psychiatric History: Pt. presents as fatigue and is unable to give a cohesive psychiatric history. Pt. reports two psychiatric hospitalizations, most recently at [facility] in 2017 for depression. Pt. is nonadherent to medications and outpatient care. Pt. denies h/o suicide attempt. Pt. currently denies suicidal and homicidal ideation. Physical/Sexual Abuse/Trauma History: Denies. Mental Status Exam - Mental Status Exam Alert and Oriented to: Time, Place, Person Cognitive Function: Fair Patient Appearance: Unkempt Mood: Withdrawn Affect: Mood Congruent Patient Behavior: Sedated, Fatigued, Guarded Speech Pattern: Delayed Voice Loudness: Moderately Soft/Quiet Thought Process: Goal Oriented Thought Disorder: Not Present Hallucinations: Denies Suicidal Ideation: Denies Insight/Judgement: Poor Sleep: Fair Appetite: Fair Muscle strength/Tone: Normal Gait/Station: Normal Psychiatric Findings - Problem List (Switchback 1, 2,3) (1) Cocaine dependence, uncomplicated Current Visit: Yes Status: Acute (2) Nicotine dependence Current Visit: Yes Status: Chronic Qualifiers: Nicotine product type: cigarettes Substance use status: uncomplicated Qualified Code(s): F17.210 - Nicotine dependence, cigarettes, uncomplicated (3) Opioid dependence with withdrawal Current Visit: Yes Status: Acute (4) Drug-induced mood disorder Current Visit: Yes Status: Acute - Initial Treatment Plan Initial Treatment Plan: Psychoeducation provided. Detoxification provided. Observation.
[2017-12-19] MEDS: THIAMINE HCL 100 MG TABLET (FP) PO SCH (22:25)
[2017-12-19] MEDS: diazePAM 5 MG TABLET PO PRN (22:25)
--- NOTE | 2017-12-20 09:56 | PN ---
[facility] COWS - Scale Resting Pulse: 1= [place] 81-100 Sweatin= Chills/Flushing Restless Observation: 3= Extraneous Movement Pupil Size: 1= Pupils >than Normal Bone or Joint Aches: 2= Severe Diffuse Aches Runny Nose/ Eye Tearin= Runny Nose/Eyes GI Upset > 30mins: 2= Nausea/Diarrhea Tremor Observation of Outstretched Hands: 2= Slight Tremor Visible Yawning Observation: 1= 1-2x During Session Anxiety or Irritability: 2=Irritable/Anxious Goose Flesh Skin: 0=Smooth Skin COWS Score: 17 BHS Progress Note (SOAP) Subjective: ALERT,IRRITABLE,ANXIOUS,INTERRUPTED SLEEP,PAIN IN THE BODY Objective: 12/20/17 09:54 Vital Signs Temperature 97.7 F 12/20/17 09:15 Pulse Rate 93 H 12/20/17 09:15 Respiratory Rate 20 12/20/17 09:15 Blood Pressure 132/76 12/20/17 09:15 O2 Sat by Pulse Oximetry (%) Laboratory Last Values WBC 2.4 K/mm3 (4.0-10.0) L 12/19/17 07:00 RBC 3.25 M/mm3 (4.00-5.60) L 12/19/17 07:00 Hgb 10.2 GM/dL (11.7-16.9) L D 12/19/17 07:00 Hct 29.3 % (35.4-49) L D 12/19/17 07:00 MCV 90.2 fl (80-96) 12/19/17 07:00 MCH 31.4 pg (25.7-33.7) 12/19/17 07:00 MCHC 34.8 g/dl (32.0-35.9) 12/19/17 07:00 RDW 16.0 % (11.9-15.9) H 12/19/17 07:00 Plt Count 176 K/MM3 (134-434) 12/19/17 07:00 MPV 8.1 fl (7.5-11.1) 12/19/17 07:00 Sodium 138 mmol/L (136-145) 12/19/17 07:00 Potassium 4.1 mmol/L (3.5-5.1) 12/19/17 07:00 Chloride 101 mmol/L (98-107) 12/19/17 07:00 Carbon Dioxide 29 mmol/L (21-32) 12/19/17 07:00 Anion Gap 8 (8-16) 12/19/17 07:00 BUN 15 mg/dL (7-18) D 12/19/17 07:00 Creatinine 0.7 mg/dL (0.7-1.3) 12/19/17 07:00 Creat Clearance w eGFR > 60 (>60) 12/19/17 07:00 Random Glucose 95 mg/dL (74-106) 12/19/17 07:00 Calcium 8.3 mg/dL (8.5-10.1) L 12/19/17 07:00 Total Bilirubin 0.2 mg/dL (0.2-1.0) D 12/19/17 07:00 AST 25 U/L (15-37) 12/19/17 07:00 ALT 22 U/L (12-78) 12/19/17 07:00 Alkaline Phosphatase 71 U/L (45-117) 12/19/17 07:00 Total Protein 7.9 g/dl (6.4-8.2) 12/19/17 07:00 Albumin 3.0 g/dl (3.4-5.0) L 12/19/17 07:00 Assessment: 12/20/17 09:54 WITHDRAWAL SYMPTOM Plan: CONTINUE DETOX,ANEMIA,HIV,FERROUS SULFATE 325 MGS PO TID,NUTRITION SUPPLEMENT
[2017-12-20] MEDS ORDERED: METHADONE HCL 10 MG TABLET (FOR DETOX USE ONLY) PO ONE (10:00)
[2017-12-20] MEDS ORDERED: METHADONE HCL 5 MG TABLET (FOR DETOX USE ONLY) PO ONE (10:00)
[2017-12-20] MEDS: PRENATAL VITAMINS W/ FOLIC ACID TABLET (FP) PO SCH (10:29)
[2017-12-20] MEDS: NICOTINE 14 MG/24 HOURS TOPICAL PATCH TD SCH (10:29)
[2017-12-20] MEDS: FERROUS SO4 325 MG TABLET (FP) PO SCH ×2 (13:00→18:15)
[2017-12-20 15:02] LABS: RPR REACTIVE 1:1 (NONREACTIVE)
[2017-12-20 15:08] LABS: TREPONEMA ANTIBODY PREVIOUSLY REACTIVE (NONREACTIVE)
[2017-12-20] MEDS: THIAMINE HCL 100 MG TABLET (FP) PO SCH (22:29)
[2017-12-20] MEDS: diazePAM 5 MG TABLET PO PRN (22:30)
[2017-12-21] MEDS: diazePAM 5 MG TABLET PO PRN ×3 (03:41→22:15)
[2017-12-21] MEDS: FERROUS SO4 325 MG TABLET (FP) PO SCH ×3 (08:30→17:46)
[2017-12-21] MEDS ORDERED: METHADONE HCL 5 MG TABLET (FOR DETOX USE ONLY) PO ONE ×2 (10:00)
[2017-12-21] MEDS: PRENATAL VITAMINS W/ FOLIC ACID TABLET (FP) PO SCH (10:29)
[2017-12-21] MEDS: NICOTINE 14 MG/24 HOURS TOPICAL PATCH TD SCH (11:33)
--- NOTE | 2017-12-21 11:46 | PN ---
S Progress Note (SOAP) Subjective: ALERT,IRRITABLE,ANXIOUS,INTERRUPTED SLEEP PAIN IN THE BODY Objective: 12/21/17 11:44 Vital Signs Temperature 97.0 F L 12/21/17 10:13 Pulse Rate 87 12/21/17 10:13 Respiratory Rate 18 12/21/17 10:13 Blood Pressure 130/72 12/21/17 10:13 O2 Sat by Pulse Oximetry (%) Laboratory Last Values WBC 2.4 K/mm3 (4.0-10.0) L 12/19/17 07:00 RBC 3.25 M/mm3 (4.00-5.60) L 12/19/17 07:00 Hgb 10.2 GM/dL (11.7-16.9) L D 12/19/17 07:00 Hct 29.3 % (35.4-49) L D 12/19/17 07:00 MCV 90.2 fl (80-96) 12/19/17 07:00 MCH 31.4 pg (25.7-33.7) 12/19/17 07:00 MCHC 34.8 g/dl (32.0-35.9) 12/19/17 07:00 RDW 16.0 % (11.9-15.9) H 12/19/17 07:00 Plt Count 176 K/MM3 (134-434) 12/19/17 07:00 MPV 8.1 fl (7.5-11.1) 12/19/17 07:00 Sodium 138 mmol/L (136-145) 12/19/17 07:00 Potassium 4.1 mmol/L (3.5-5.1) 12/19/17 07:00 Chloride 101 mmol/L (98-107) 12/19/17 07:00 Carbon Dioxide 29 mmol/L (21-32) 12/19/17 07:00 Anion Gap 8 (8-16) 12/19/17 07:00 BUN 15 mg/dL (7-18) D 12/19/17 07:00 Creatinine 0.7 mg/dL (0.7-1.3) 12/19/17 07:00 Creat Clearance w eGFR > 60 (>60) 12/19/17 07:00 Random Glucose 95 mg/dL (74-106) 12/19/17 07:00 Calcium 8.3 mg/dL (8.5-10.1) L 12/19/17 07:00 Total Bilirubin 0.2 mg/dL (0.2-1.0) D 12/19/17 07:00 AST 25 U/L (15-37) 12/19/17 07:00 ALT 22 U/L (12-78) 12/19/17 07:00 Alkaline Phosphatase 71 U/L (45-117) 12/19/17 07:00 Total Protein 7.9 g/dl (6.4-8.2) 12/19/17 07:00 Albumin 3.0 g/dl (3.4-5.0) L 12/19/17 07:00 RPR Titer Reactive 1:1 (NONREACTIVE) H 12/19/17 07:00 T.pallidum Ab (MHA) Previously reactive (NONREACTIVE) 12/19/17 07:00 PREVIOUSLY TREATED FOR SYPHILIS Assessment: 12/21/17 11:45 WITHDRAWAL SYMPTOM Plan: CONTINUE DETOX
[2017-12-21] MEDS: MELATONIN 5 MG TABLETS PO PRN (22:15)
[2017-12-21] MEDS: THIAMINE HCL 100 MG TABLET (FP) PO SCH (22:15)
[2017-12-21] MEDS: IBUPROFEN 400 MG TABLET (FP) PO PRN (22:36)
[2017-12-22] MEDS: FERROUS SO4 325 MG TABLET (FP) PO SCH ×3 (07:27→17:18)
[2017-12-22] MEDS ORDERED: METHADONE HCL 10 MG TABLET (FOR DETOX USE ONLY) PO ONE (10:00)
[2017-12-22] MEDS ORDERED: METHADONE HCL 5 MG TABLET (FOR DETOX USE ONLY) PO ONE (10:00)
[2017-12-22] MEDS: NICOTINE 14 MG/24 HOURS TOPICAL PATCH TD SCH (10:25)
[2017-12-22] MEDS: PRENATAL VITAMINS W/ FOLIC ACID TABLET (FP) PO SCH (10:25)
--- NOTE | 2017-12-22 10:31 | PN ---
S Progress Note (SOAP) Subjective: ALERT,IRRITABLE,INTERRUPTED SLEEP Objective: 12/22/17 10:30 Vital Signs Temperature 97.2 F L 12/22/17 09:54 Pulse Rate 83 12/22/17 09:54 Respiratory Rate 18 12/22/17 09:54 Blood Pressure 129/72 12/22/17 09:54 O2 Sat by Pulse Oximetry (%) Assessment: 12/22/17 10:30 WITHDRAWAL SYMPTOM Plan: CONTINUE DETOX,DISCHARGE IN AM
[2017-12-22] MEDS: IBUPROFEN 400 MG TABLET (FP) PO PRN ×2 (10:38→22:07)
[2017-12-22] MEDS ORDERED: hydrOXYzine PAMOATE 50 MG CAPSULE (FP) PO PRN (21:57)
[2017-12-22] MEDS: MELATONIN 5 MG TABLETS PO PRN (22:04)
[2017-12-22] MEDS: THIAMINE HCL 100 MG TABLET (FP) PO SCH (22:05)
[2017-12-22] MEDS ORDERED: CYCLOBENZAPRINE HCL 5 MG TABLET PO PRN (22:43)
--- NOTE | 2017-12-22 22:46 | PN ---
[facility] Progress Note Note: Patient c/o of back pain and anxiety. Vital Signs Temperature 97 F L 12/22/17 17:48 Pulse Rate 81 12/22/17 17:48 Respiratory Rate 18 12/22/17 17:48 Blood Pressure 112/69 12/22/17 17:48 O2 Sat by Pulse Oximetry (%) Laboratory Last Values WBC 2.4 K/mm3 (4.0-10.0) L 12/19/17 07:00 RBC 3.25 M/mm3 (4.00-5.60) L 12/19/17 07:00 Hgb 10.2 GM/dL (11.7-16.9) L D 12/19/17 07:00 Hct 29.3 % (35.4-49) L D 12/19/17 07:00 MCV 90.2 fl (80-96) 12/19/17 07:00 MCH 31.4 pg (25.7-33.7) 12/19/17 07:00 MCHC 34.8 g/dl (32.0-35.9) 12/19/17 07:00 RDW 16.0 % (11.9-15.9) H 12/19/17 07:00 Plt Count 176 K/MM3 (134-434) 12/19/17 07:00 MPV 8.1 fl (7.5-11.1) 12/19/17 07:00 Sodium 138 mmol/L (136-145) 12/19/17 07:00 Potassium 4.1 mmol/L (3.5-5.1) 12/19/17 07:00 Chloride 101 mmol/L (98-107) 12/19/17 07:00 Carbon Dioxide 29 mmol/L (21-32) 12/19/17 07:00 Anion Gap 8 (8-16) 12/19/17 07:00 BUN 15 mg/dL (7-18) D 12/19/17 07:00 Creatinine 0.7 mg/dL (0.7-1.3) 12/19/17 07:00 Creat Clearance w eGFR > 60 (>60) 12/19/17 07:00 Random Glucose 95 mg/dL (74-106) 12/19/17 07:00 Calcium 8.3 mg/dL (8.5-10.1) L 12/19/17 07:00 Total Bilirubin 0.2 mg/dL (0.2-1.0) D 12/19/17 07:00 AST 25 U/L (15-37) 12/19/17 07:00 ALT 22 U/L (12-78) 12/19/17 07:00 Alkaline Phosphatase 71 U/L (45-117) 12/19/17 07:00 Total Protein 7.9 g/dl (6.4-8.2) 12/19/17 07:00 Albumin 3.0 g/dl (3.4-5.0) L 12/19/17 07:00 RPR Titer Reactive 1:1 (NONREACTIVE) H 12/19/17 07:00 T.pallidum Ab (MHA) Previously reactive (NONREACTIVE) 12/19/17 07:00 other labs pending Patient AOx3, ambulating in the unit, no apparent distress. Plan: Lidocaine patch for back Felxeril 5 mg TID PRN U/A
[2017-12-23] MEDS ORDERED: METHADONE HCL 5 MG TABLET (FOR DETOX USE ONLY) PO ONE (06:00)
[2017-12-23] MEDS: FERROUS SO4 325 MG TABLET (FP) PO SCH ×3 (09:41→18:30)
[2017-12-23] MEDS: IBUPROFEN 400 MG TABLET (FP) PO PRN ×2 (09:43→22:10)
[2017-12-23] MEDS: PRENATAL VITAMINS W/ FOLIC ACID TABLET (FP) PO SCH (09:43)
[2017-12-23] MEDS ORDERED: LIDOCAINE 5% TOPICAL PATCH TP SCH (10:00)
[2017-12-23] MEDS ORDERED: METHADONE HCL 10 MG TABLET (FOR DETOX USE ONLY) PO ONE (10:00)
[2017-12-23 10:30] LABS: URINE APPEARANCE CLEAR; URINE BILIRUBIN NEGATIVE (<2.0 mg/dL); URINE BLOOD NEGATIVE (NEGATIVE); URINE COLOR STRAW; URINE GLUCOSE (UA) NEGATIVE (NEGATIVE); URINE KETONE NEGATIVE (NEGATIVE); URINE LEUK ESTERASE NEGATIVE (NEGATIVE); URINE NITRITE NEGATIVE (NEGATIVE); URINE PROTEIN NEGATIVE (NEGATIVE); URINE UROBILINOGEN NEGATIVE mg/dL (0.2-1.0)
[2017-12-23] MEDS: NICOTINE 14 MG/24 HOURS TOPICAL PATCH TD SCH (12:18)
--- NOTE | 2017-12-23 14:12 | PN ---
[facility] Progress Note (SOAP) Subjective: ALERT,IRRITABLE,ANXIOUS,INTERRUPTED SLEEP,FEEL WEAK Objective: 12/23/17 14:10 Vital Signs Temperature 97.5 F L 12/23/17 10:53 Pulse Rate 83 12/23/17 10:53 Respiratory Rate 20 12/23/17 10:53 Blood Pressure 137/81 12/23/17 10:53 O2 Sat by Pulse Oximetry (%) Assessment: 12/23/17 14:11 WITHDRAWAL SYMPTOM Plan: CONTINUE DETOX
--- NOTE | 2017-12-23 15:09 | PN ---
[facility] Progress Note (SOAP) Subjective: ALERT,IRRITABLE,ANXIOUS,INTERRUPTED SLEEP,FEEL WEAK Objective: 12/23/17 14:08 Vital Signs Temperature 97.5 F L 12/23/17 10:53 Pulse Rate 83 12/23/17 10:53 Respiratory Rate 20 12/23/17 10:53 Blood Pressure 137/81 12/23/17 10:53 O2 Sat by Pulse Oximetry (%) Assessment: 12/23/17 14:08 WITHDRAWAL SYMPTOM
[2017-12-23] MEDS ORDERED: LIDOCAINE PATCH REMOVAL MC SCH (22:00)
[2017-12-23] MEDS: THIAMINE HCL 100 MG TABLET (FP) PO SCH (22:08)
[2017-12-24] MEDS ORDERED: METHADONE HCL 5 MG TABLET (FOR DETOX USE ONLY) PO ONE (06:00)
[2017-12-24 06:51] VITALS: BP 132/85; PULSE 80; TEMP 97.7
[2017-12-24] MEDS: FERROUS SO4 325 MG TABLET (FP) PO SCH (07:30)
--- NOTE | 2017-12-24 10:46 | DS ---
[facility] Detox Discharge Summary Admission Date: 12/18/17 Discharge Date: 12/24/17 - History Present History: Opioid Dependence Additional Comments: 52 years old male admitted for opioid detox completed detox regimen tolerated well patient is alert oriented x 3 no acute distress wants to go to [facility] for rehab health teaching on hepatitis c hiv and anemia - Physical Exam Results Vital Signs: Vital Signs Temperature 97.7 F 12/24/17 06:51 Pulse Rate 80 12/24/17 06:51 Respiratory Rate 18 12/24/17 06:51 Blood Pressure 132/85 12/24/17 06:51 O2 Sat by Pulse Oximetry (%) Pertinent Admission Physical Exam Findings: withdrawal sx Laboratory Last Values WBC 2.4 K/mm3 (4.0-10.0) L 12/19/17 07:00 RBC 3.25 M/mm3 (4.00-5.60) L 12/19/17 07:00 Hgb 10.2 GM/dL (11.7-16.9) L D 12/19/17 07:00 Hct 29.3 % (35.4-49) L D 12/19/17 07:00 MCV 90.2 fl (80-96) 12/19/17 07:00 MCH 31.4 pg (25.7-33.7) 12/19/17 07:00 MCHC 34.8 g/dl (32.0-35.9) 12/19/17 07:00 RDW 16.0 % (11.9-15.9) H 12/19/17 07:00 Plt Count 176 K/MM3 (134-434) 12/19/17 07:00 MPV 8.1 fl (7.5-11.1) 12/19/17 07:00 Sodium 138 mmol/L (136-145) 12/19/17 07:00 Potassium 4.1 mmol/L (3.5-5.1) 12/19/17 07:00 Chloride 101 mmol/L (98-107) 12/19/17 07:00 Carbon Dioxide 29 mmol/L (21-32) 12/19/17 07:00 Anion Gap 8 (8-16) 12/19/17 07:00 BUN 15 mg/dL (7-18) D 12/19/17 07:00 Creatinine 0.7 mg/dL (0.7-1.3) 12/19/17 07:00 Creat Clearance w eGFR > 60 (>60) 12/19/17 07:00 Random Glucose 95 mg/dL (74-106) 12/19/17 07:00 Calcium 8.3 mg/dL (8.5-10.1) L 12/19/17 07:00 Total Bilirubin 0.2 mg/dL (0.2-1.0) D 12/19/17 07:00 AST 25 U/L (15-37) 12/19/17 07:00 ALT 22 U/L (12-78) 12/19/17 07:00 Alkaline Phosphatase 71 U/L (45-117) 12/19/17 07:00 Total Protein 7.9 g/dl (6.4-8.2) 12/19/17 07:00 Albumin 3.0 g/dl (3.4-5.0) L 12/19/17 07:00 Urine Color Straw 12/23/17 09:30 Urine Appearance Clear 12/23/17 09:30 Urine pH 7.0 (5.0-8.0) 12/23/17 09:30 Ur Specific [place] 1.013 (1.001-1.035) 12/23/17 09:30 Urine Protein Negative (NEGATIVE) 12/23/17 09:30 Urine Glucose (UA) Negative (NEGATIVE) 12/23/17 09:30 Urine Ketones Negative (NEGATIVE) 12/23/17 09:30 Urine Blood Negative (NEGATIVE) 12/23/17 09:30 Urine Nitrite Negative (NEGATIVE) 12/23/17 09:30 Urine Bilirubin Negative (<2.0 mg/dL) 12/23/17 09:30 Urine Urobilinogen Negative mg/dL (0.2-1.0) 12/23/17 09:30 Ur Leukocyte Esterase Negative (NEGATIVE) 12/23/17 09:30 RPR Titer Reactive 1:1 (NONREACTIVE) H 12/19/17 07:00 T.pallidum Ab (MHA) Previously reactive (NONREACTIVE) 12/19/17 07:00 lab noted treated syphilis [facility] Hospital Course: Detox Protocol Followed, Detoxed Safely, Responded well, Discharged Condition Good, Rehab Referral Accepted Patient has Accepted a Rehab Referral to: [facility] - Medication Discharge Medications: Ambulatory Orders Ferrous Sulfate 325 mg PO 12/24/17 - Diagnosis (1) Opioid dependence with withdrawal Current Visit: Yes Status: Acute (2) HIV (human immunodeficiency virus infection) Current Visit: Yes Status: Chronic (3) Hepatitis C Current Visit: Yes Status: Resolved Qualifiers: Viral hepatitis chronicity: chronic Hepatic coma status: without hepatic coma Qualified Code(s): B18.2 - Chronic viral hepatitis C (4) Nicotine dependence Current Visit: Yes Status: Acute Qualifiers: Nicotine product type: cigarettes Substance use status: in withdrawal Qualified Code(s): F17.213 - Nicotine dependence, cigarettes, with withdrawal (5) Positive PPD Current Visit: Yes Status: Resolved (6) Anemia Current Visit: Yes Status: Chronic Qualifiers: Anemia type: iron deficiency Iron deficiency anemia type: inadequate dietary iron intake Qualified Code(s): D50.8 - Other iron deficiency anemias - AMA Did Patient Leave Against Medical Advice: No
== END 2017-12-24 11:02 | disposition home or self-care (01) | DRG 773 ==
LOC: YASAS 17:28 → Y6N 23:10
PROVIDERS: ADMIT Internal Medicine; ATTEND Internal Medicine
PROC: HZ2ZZZZ Detoxification Services for Substance Abuse Treatment (ICD-10-PCS; principal; 2017-12-18)
DX: F11.23 Opioid dependence with withdrawal (principal); F14.20 Cocaine dependence, uncomplicated; F17.210 Nicotine dependence, cigarettes, uncomplicated; F41.9 Anxiety disorder, unspecified; F19.24 Other psychoactive substance dependence with psychoactive substance-induced mood disorder; Z21 Asymptomatic human immunodeficiency virus [HIV] infection status; B18.2 Chronic viral hepatitis C; D50.8 Other iron deficiency anemias; M54.5 Low back pain; G40.909 Epilepsy, unspecified, not intractable, without status epilepticus; Z91.14 Patient's other noncompliance with medication regimen
CPT/HCPCS: 36415; 71046-TC-FY; 80053; 81003; 85027; 86593; 86780; 93005; 93010

== ENCOUNTER 2018-01-22 14:43 | Inpatient (IN) | payer OTHER ==
[2018-01-22 16:38] VITALS: BMI 20.3
--- NOTE | 2018-01-22 18:14 | HP ---
COWS - Scale Resting Pulse: 1= [place] 81-100 Sweatin=Flushed/Facial Moisture Restless Observation: 1= Difficult to Sit Still Pupil Size: 0= Normal to Room Light Bone or Joint Aches: 1= Mild Discomfort Runny Nose/ Eye Tearin= Runny Nose/Eyes GI Upset > 30mins: 0= None Tremor Observation: 1= Tremor [place], Not Seen Yawning Observation: 2= >3x During Session Anxiety or Irritability: 2=Irritable/Anxious Goose Flesh Skin: 0=Smooth Skin COWS Score: 12 Admission [facility] - HPI Chief Complaint: " I don't feel well" Allergies/Adverse Reactions: Allergies Allergy/AdvReac Type Severity Reaction Status Date / Time No Known Allergies Allergy Verified 11/01/17 17:41 History of Present Illness: 52 years old male with a long history of IV heroin, crack / cocaine and nicotine dependence is seeking admission to detox. Patient has been to previous detox, last 12/18/17 - 12/24/17. Reports insignificant period of sobriety. Patient has medical history of HIV+, Hep. C, stomach ulcer. Depression and PPD positive. He denies suicidal / homicidal ideation at this time. Longest period of sobriety 3 years while in long-term. Exam Limitations: No Limitations - Ebola screening Have you traveled outside of the country in the last 21 days: No Have you had contact with anyone from an Ebola affected area: No Have you been sick,other than usual withdrawal symptoms: No Do you have a fever: No - Review of Systems Constitutional: Chills, Diaphoresis, Loss of Appetite, Weakness, Unintentional Wgt. Loss EENT: reports: Blurred Vision (wears glasses), Nose Congestion, Dental Problems (teeth loose and are falling) Respiratory: reports: SOB with Exertion (1-2 city blocks) Cardiac: reports: Lightheadedness GI: reports: Poor Appetite, Poor Fluid Intake : reports: Frequency (7x at night) Musculoskeletal: reports: Back Pain, Joint Pain Integumentary: reports: No Symptoms Reported Neuro: reports: Weakness, Dizziness Endocrine: reports: Excessive Sweating, Increased Thirst Hematology: reports: See HPI Psychiatric: reports: Orientated x3, Depressed Other Systems: Reviewed and Negative Patient History - Patient Medical History Hx Anemia: No Hx Asthma: No Hx Chronic Obstructive Pulmonary Disease (COPD): No Hx Cancer: No Hx Cardiac Disorders: No Hx Congestive Heart Failure: No Hx Hypertension: No Hx Hypercholesterolemia: No Hx Pacemaker: No HX Cerebrovascular Accident: No Hx Seizures: No Hx Dementia: No Hx Diabetes: No Hx Gastrointestinal Disorders: Yes (hx stomach ulcer ) Hx Liver Disease: Yes (Hep C ) Hx Genitourinary Disorders: No Hx Sexually Transmitted Disorders: Yes (HIV ) Hx Renal Disease (ESRD): No Hx Thyroid Disease: No Hx Human Immunodeficiency Virus (HIV): Yes (NOT ON MEDICATION SINCE 1984) Hx Hepatitis C: Yes (No treatment ) Hx Depression: Yes Hx Suicide Attempt: No Hx Bipolar Disorder: No Hx Schizophrenia: No - Patient Surgical History Past Surgical History: Yes Hx Abdominal Surgery: Yes (peptic ulcer 1994) Other Surgical History: I&D OF ABSCESS RT. 4TH FINGER. - PPD History Previous Implant?: Yes Documented Results: Positive w/proof Implanted On Prior [facility] Admission?: No Results: CXR neg 12/27 PPD to be Administered?: No - Reproductive History Patient is a Female of Child Bearing Age (11 -55 yrs old): No - Smoking Cessation Smoking history: Current every day smoker Have you smoked in the past 12 months: Yes Aproximately how many cigarettes per day: 5 Hx Chewing Tobacco Use: No Initiated information on smoking cessation: Yes 'Breaking Loose' booklet given: 01/22/18 - Substance & Tx. History Hx Alcohol Use: No Hx Substance Use: Yes Substance Use Type: Cocaine, Heroin - Substances Abused Heroin Route: Injection Frequency: Daily Amount used: 7-9 bags Age of first use: 15 Date of Last Use: 01/22/18 Crack Route: Smoking Frequency: Daily Amount used: $70 Age of first use: 24 Date of Last Use: 01/22/18 Family Disease History - Family Disease History Family Disease History: Diabetes: Father (ALCOHOL), Brother, Other: Father Admission Physical Exam [facility] - Vital Signs Vital Signs: Vital Signs - 24 hr 01/22/18 16:36 Temperature 100.3 F H Pulse Rate 86 Respiratory 18 Rate Blood Pressure 126/60 - Physical General Appearance: Yes: Mild Distress, Thin, Anxious, Other (malodorous) HEENTM: Yes: EOMI, Hearing grossly Normal, Normal ENT Inspection, Normocephalic , Normal Voice, MIA, Pharynx Normal, Tm's normal, Other (cheilithis, poor dentition and severe plaque on teeth) Respiratory: Yes: Chest Non-Tender, Lungs Clear, Normal Breath Sounds, No Respiratory Distress, No Accessory Muscle Use Breast: Yes: Breast Exam Deferred Cardiology: Yes: Regular Rhythm, Regular Rate Abdominal: Yes: Normal Bowel Sounds, Non Tender, Flat Genitourinary: Yes: Frequency Back: Yes: Normal Inspection Musculoskeletal: Yes: Back pain, Other (+ pain on both knees) Neurological: Yes: tire rebuilder II-XII NML intact, Fully Oriented, Alert, Motor Strength 5/5, Depressed Affect Integumentary: Yes: Normal Color, Warm, Moist Lymphatic: Yes: Within Normal Limits - Diagnostic (1) Cheilitis Current Visit: Yes Status: Acute (2) Cocaine dependence, uncomplicated Current Visit: Yes Status: Acute (3) Nicotine dependence Current Visit: Yes Status: Acute Qualifiers: Nicotine product type: cigarettes Substance use status: in withdrawal Qualified Code(s): F17.213 - Nicotine dependence, cigarettes, with withdrawal (4) Opioid dependence with withdrawal Current Visit: Yes Status: Acute (5) Anemia Current Visit: Yes Status: Chronic Qualifiers: Anemia type: iron deficiency Iron deficiency anemia type: inadequate dietary iron intake Qualified Code(s): D50.8 - Other iron deficiency anemias (6) HIV (human immunodeficiency virus infection) Current Visit: Yes Status: Chronic Comment: Reports no medication taken for 2 years and no follow up with medical care (7) Urinary frequency Current Visit: Yes Status: Acute (8) Back pain Current Visit: Yes Status: Acute Qualifiers: Back pain location: low back pain Back pain laterality: bilateral Sciatica presence: without sciatica (9) Bilateral knee pain Current Visit: Yes Status: Chronic Qualifiers: Chronicity: chronic Qualified Code(s): M25.561 - Pain in right knee; M25.562 - Pain in left knee; M25.562 - Pain in left knee; G89.29 - Other chronic pain; G89.29 - Other chronic pain (10) Weight loss Current Visit: No Status: Chronic Cleared for Admission S - Detox or Rehab [facility] Level of Care: Medically Managed Detox Regimen/Protocol: Methadone [facility] Breath Alcohol Content Breath Alcohol Content: 0 Urine Drug Screen - Results Drug Screen Negative: No Urine Drug Screen Results: SHUN-Cocaine, OPI-Opiates
[2018-01-22] MEDS ORDERED: guaiFENesin/D-METHORPHAN HB 10 ML UNIT-DOSE CUPS PO PRN (18:22)
[2018-01-22] MEDS ORDERED: MENTHOL/PHENOL 1 EACH UD MM PRN (18:22)
[2018-01-22] MEDS ORDERED: LOPERAMIDE HCL 2 MG CAPSULE PO PRN (18:22)
[2018-01-22] MEDS ORDERED: METHADONE HCL 10 MG TABLET (FOR DETOX USE ONLY) PO ONE ×2 (18:22→23:00)
[2018-01-22] MEDS ORDERED: ACETAMINOPHEN 325 MG TABLET (FP) PO PRN (18:22)
[2018-01-22] MEDS ORDERED: MAGNESIUM CITRATE 300 ML BOTTLE PO PRN (18:22)
[2018-01-22] MEDS ORDERED: P-EPHED 60MG/TRIPROLIDI 2.5MG TABLET PO PRN (18:22)
[2018-01-22] MEDS ORDERED: NICOTINE POLACRILEX 2 MG GUM BC PRN (18:22)
[2018-01-22] MEDS ORDERED: MAGNESIUM HYDROX 2400MG/30ML ORAL SUSPENSION 30 ML CUP PO PRN (18:22)
[2018-01-22] MEDS ORDERED: IBUPROFEN 400 MG TABLET (FP) PO PRN (18:22)
[2018-01-22] MEDS ORDERED: hydrOXYzine PAMOATE 50 MG CAPSULE (FP) PO PRN (18:22)
[2018-01-22] MEDS ORDERED: MAG HYDROX/AL HYDROX/SIMETH 30 ML UNIT-DOSE CUP PO PRN (18:22)
[2018-01-22] MEDS: diazePAM 5 MG TABLET PO PRN (20:08)
[2018-01-22] MEDS ORDERED: MELATONIN 5 MG TABLETS PO PRN (22:00)
[2018-01-22] MEDS: THIAMINE HCL 100 MG TABLET (FP) PO SCH (22:18)
[2018-01-22 23:00] LABS: URINE APPEARANCE SLCLOUDY; URINE BILIRUBIN NEGATIVE (<2.0 mg/dL); URINE COLOR DKYELLOW; URINE GLUCOSE (UA) NEGATIVE (NEGATIVE); URINE KETONE NEGATIVE (NEGATIVE); URINE LEUK ESTERASE NEGATIVE (NEGATIVE); URINE NITRITE NEGATIVE (NEGATIVE); URINE UROBILINOGEN 4.0 E.U/dl mg/dL (0.2-1.0)
[2018-01-22 23:18] LABS: URINE PROTEIN 1+ (NEGATIVE)
[2018-01-22 23:21] LABS: EPI CELLS RARE /HPF (FEW); URINE MUCUS RARE
[2018-01-23] MEDS: diazePAM 5 MG TABLET PO PRN (09:25)
[2018-01-23] MEDS ORDERED: METHADONE HCL 10 MG TABLET (FOR DETOX USE ONLY) PO ONE (10:00)
[2018-01-23 10:22] LABS: CHLORIDE 101 mmol/L (98-107); HEMATOCRIT 29.1 % (35.4-49); HEMOGLOBIN 10.3 GM/dL (11.7-16.9); MCH 31.9 pg (25.7-33.7); MCHC 35.4 g/dl (32.0-35.9); MEAN CELL VOLUME 90.1 fl (80-96); MEAN PLT VOLUME 8.3 fl (7.5-11.1); PLATELET COUNT 186 K/MM3 (134-434); POTASSIUM 4.3 mmol/L (3.5-5.1); RBC 3.23 M/mm3 (4.00-5.60); SODIUM 136 mmol/L (136-145); WHITE BLOOD COUNT 3.5 K/mm3 (4.0-10.0)
[2018-01-23] MEDS: NICOTINE 14 MG/24 HOURS TOPICAL PATCH TD SCH (10:25)
[2018-01-23] MEDS: PRENATAL VITAMINS W/ FOLIC ACID TABLET (FP) PO SCH (10:25)
[2018-01-23 10:29] LABS: ALBUMIN 2.6 g/dl (3.4-5.0); ALK PHOS 56 U/L (45-117); ANION GAP 6 (8-16); BILIRUBIN,TOTAL 0.4 mg/dL (0.2-1.0); BLOOD UREA NITROGEN 8 mg/dL (7-18); CALCIUM 7.5 mg/dL (8.5-10.1); CO2 29 mmol/L (21-32); CREATININE 0.7 mg/dL (0.7-1.3); GLUCOSE,RANDOM 98 mg/dL (74-106); SGOT/AST 14 U/L (15-37); SGPT/ALT 15 U/L (12-78); TOT PROT 7.2 g/dl (6.4-8.2)
[2018-01-23 11:55] LABS: RPR REACTIVE 1:1 (NONREACTIVE)
[2018-01-23 11:58] LABS: TREPONEMA ANTIBODY PREVIOUSLY REACTIVE (NONREACTIVE)
--- NOTE | 2018-01-23 12:01 | EKG ---
Test Reason : Blood Pressure : / mmHG Vent. Rate : 084 BPM Atrial Rate : 084 BPM P-R Int : 112 ms QRS Dur : 074 ms QT Int : 360 ms P-R-T Axes : 010 069 081 degrees QTc Int : 425 ms NORMAL SINUS RHYTHM MINIMAL VOLTAGE CRITERIA FOR LVH, MAY BE NORMAL VARIANT BORDERLINE ECG WHEN COMPARED WITH ECG OF 19-DEC-2017 02:05, NO SIGNIFICANT CHANGE WAS FOUND Confirmed by MD JOANNA, RHONDA ([id number]) on 01/23/2018 12:00:50 PM Referred By: Confirmed By:RHONDA MARSHALL MD
--- NOTE | 2018-01-23 12:22 | PN ---
BHS COWS - Scale Resting Pulse: 1= [place] 81-100 Sweatin= Chills/Flushing Restless Observation: 3= Extraneous Movement Pupil Size: 2= Moderately Dilated Bone or Joint Aches: 1= Mild Discomfort Runny Nose/ Eye Tearin= None GI Upset > 30mins: 0= None Tremor Observation of Outstretched Hands: 1= Tremor [place], Not Seen Yawning Observation: 2= >3x During Session Anxiety or Irritability: 2=Irritable/Anxious Goose Flesh Skin: 0=Smooth Skin COWS Score: 13 BHS Progress Note (SOAP) Subjective: ANXIETY,SWEATS,CHILLS,FATIGUE. Objective: 01/23/18 12:21 Vital Signs 01/23/18 01/23/18 01/23/18 06:12 06:30 09:09 Temperature 99.7 F H 99.6 F Pulse Rate 79 91 H Respiratory 18 18 16 Rate Blood Pressure 128/73 116/66 Laboratory Tests 01/22/18 01/23/18 01/23/18 22:49 07:00 07:00 WBC 3.5 L D RBC 3.23 L Hgb 10.3 L Hct 29.1 L MCV 90.1 MCH 31.9 MCHC 35.4 RDW 14.0 D Plt Count 186 MPV 8.3 Sodium 136 Potassium 4.3 Chloride 101 Carbon Dioxide 29 Anion Gap 6 L BUN 8 D Creatinine 0.7 Creat Clearance w eGFR > 60 Random Glucose 98 Calcium 7.5 L Total Bilirubin 0.4 D AST 14 L D ALT 15 D Alkaline Phosphatase 56 D Total Protein 7.2 Albumin 2.6 L Urine Color Dkyellow Urine Appearance Slcloudy Urine pH 6.0 Ur Specific [place] 1.024 Urine Protein 1+ H Urine Glucose (UA) Negative Urine Ketones Negative Urine Blood Negative Urine Nitrite Negative Urine Bilirubin Negative Urine Urobilinogen 4.0 e.u/dl Ur Leukocyte Esterase Negative Urine WBC (Auto) 2 Urine RBC (Auto) 8 Ur Epithelial Cells Rare Urine Mucus Rare RPR Titer T.pallidum Ab ([facility]) 01/23/18 07:00 WBC RBC Hgb Hct MCV MCH MCHC RDW Plt Count MPV Sodium Potassium Chloride Carbon Dioxide Anion Gap BUN Creatinine Creat Clearance w eGFR Random Glucose Calcium Total Bilirubin AST ALT Alkaline Phosphatase Total Protein Albumin Urine Color Urine Appearance Urine pH Ur Specific [place] Urine Protein Urine Glucose (UA) Urine Ketones Urine Blood Urine Nitrite Urine Bilirubin Urine Urobilinogen Ur Leukocyte Esterase Urine WBC (Auto) Urine RBC (Auto) Ur Epithelial Cells Urine Mucus RPR Titer Reactive 1:1 H T.pallidum Ab ([facility]) Previously reactive LABS NOTED Assessment: 01/23/18 12:21 WITHDRAWAL SX Plan: CONTINUE DETOX INCREASE PO FLUIDS.
--- NOTE | 2018-01-23 18:22 | CONSULT ---
[facility] Psychiatric Consult - Data Date of interview: 01/23/18 Admission source: [facility] Identifying data: Readmission to [facility] for this 52 y/o male seeking detox treatment on for heroin and cocaine (crack) dependence.Patient is single without dependents,homeless (self-report), unemployed and deprived of any source of income. Substance Abuse History: Confirmed by patient in this interview.Smoking history : Current every day smoker. Have you smoked in the past 12 months: Yes. Aproximately how many cigarettes per day: 5. Hx Chewing Tobacco Use: No. Initiated information on smoking cessation: Yes. 'Breaking Loose' booklet given : 01/22/18. - Substance & Tx. History. Hx Alcohol Use: No. Hx Substance Use: Yes. Substance Use Type: Cocaine, Heroin. - Substances Abused. Heroin. Route: Injection. Frequency: Daily. Amount used: 7-9 bags. Age of first use: 15. Date of Last Use: 01/22/18. Crack. Route: Smoking. Frequency: Daily. Amount used: $70. Age of first use: 24. Date of Last Use: 01/22/18 Medical History: HIV infection since 1984 (not on HAART medications),withdrawal- related seizures (history),hepatitis C,peptic ulcer disease,weight loss, chronic knee pain (bilateral),arthritis (patient ambulates with cane) and a history of positive PPD. Psychiatric History: Patient denies history of psychiatric hospitalizations.However, previous records indicate otherwise : the patient had reported a history of two psychiatric committments at [facility] (as recently as 2017) according to purchase price analyst Francine's note of .Diagnosed with MDD.In this interview,Mr Barkley states that he was in active OPD treatment two years ago (location not disclosed).Patient denies history of suicide attempts. Physical/Sexual Abuse/Trauma History: Not discussed in this session.Patient declines. Additional Comment: Urine Drug Screen Results: SHUN-Cocaine, OPI-Opiates.Noted. Mental Status Exam - Mental Status Exam Alert and Oriented to: Time, Place, Person Cognitive Function: Grossly Intact Patient Appearance: Well Groomed Mood: Hostile, Nervous, Withdrawn, Anxious, Irritable Affect: Mood Congruent Patient Behavior: Guarded, Cooperative (marginally coperative) Speech Pattern: Clear Voice Loudness: Normal Thought Process: Intact, Goal Oriented Thought Disorder: Not Present Hallucinations: Denies Suicidal Ideation: Denies Homicidal Ideation: Denies Insight/Judgement: Poor Sleep: Poorly, Difficulty falling asleep Appetite: Good Gait/Station: Other (depends on cane for ambulation) Psychiatric Findings - Problem List ([place] 1, 2,3) (1) Alcohol dependence with uncomplicated withdrawal Current Visit: Yes Status: Acute (2) Opioid dependence with withdrawal Current Visit: Yes Status: Acute (3) Cocaine dependence, uncomplicated Current Visit: Yes Status: Acute (4) Nicotine dependence Current Visit: Yes Status: Acute Qualifiers: Nicotine product type: cigarettes Substance use status: in withdrawal Qualified Code(s): F17.213 - Nicotine dependence, cigarettes, with withdrawal (5) Drug-induced mood disorder Current Visit: Yes Status: Acute (6) Insomnia Current Visit: Yes Status: Acute (7) Nonadherence to medication Current Visit: Yes Status: Chronic - Initial Treatment Plan Initial Treatment Plan: Psychoeducation.Sleep hygiene.Detoxification in progress.Ambien 5 mg po hs prn.patient is informed of the risk of parasomnias.Mr Baker agrees with this careplan.Observation.
[2018-01-23] MEDS: THIAMINE HCL 100 MG TABLET (FP) PO SCH (22:49)
[2018-01-24] MEDS: diazePAM 5 MG TABLET PO PRN ×3 (05:27→22:21)
[2018-01-24] MEDS ORDERED: METHADONE HCL 5 MG TABLET (FOR DETOX USE ONLY) PO ONE (10:00)
[2018-01-24] MEDS: NICOTINE 14 MG/24 HOURS TOPICAL PATCH TD SCH (10:51)
[2018-01-24] MEDS: PRENATAL VITAMINS W/ FOLIC ACID TABLET (FP) PO SCH (10:51)
--- NOTE | 2018-01-24 12:41 | PN ---
S COWS - Scale Resting Pulse: 0= [place] 80 or Below Sweatin= Chills/Flushing Restless Observation: 3= Extraneous Movement Pupil Size: 2= Moderately Dilated Bone or Joint Aches: 2= Severe Diffuse Aches Runny Nose/ Eye Tearin= Nasal Congestion GI Upset > 30mins: 0= None Tremor Observation of Outstretched Hands: 2= Slight Tremor Visible Yawning Observation: 1= 1-2x During Session Anxiety or Irritability: 1=Feels Anxious/Irritable Goose Flesh Skin: 0=Smooth Skin COWS Score: 13 BHS Progress Note (SOAP) Subjective: ANXIETY,SWEATS/CHILLS,FATIGUE. Objective: Vital Signs 01/24/18 01/24/18 01/24/18 06:23 06:30 09:54 Temperature 99.2 F 97.8 F Pulse Rate 67 75 Respiratory 20 18 20 Rate Blood Pressure 105/67 104/57 Laboratory Tests 01/22/18 01/23/18 01/23/18 22:49 07:00 07:00 WBC 3.5 L D RBC 3.23 L Hgb 10.3 L Hct 29.1 L MCV 90.1 MCH 31.9 MCHC 35.4 RDW 14.0 D Plt Count 186 MPV 8.3 Sodium 136 Potassium 4.3 Chloride 101 Carbon Dioxide 29 Anion Gap 6 L BUN 8 D Creatinine 0.7 Creat Clearance w eGFR > 60 Random Glucose 98 Calcium 7.5 L Total Bilirubin 0.4 D AST 14 L D ALT 15 D Alkaline Phosphatase 56 D Total Protein 7.2 Albumin 2.6 L Urine Color Dkyellow Urine Appearance Slcloudy Urine pH 6.0 Ur Specific [place] 1.024 Urine Protein 1+ H Urine Glucose (UA) Negative Urine Ketones Negative Urine Blood Negative Urine Nitrite Negative Urine Bilirubin Negative Urine Urobilinogen 4.0 e.u/dl Ur Leukocyte Esterase Negative Urine WBC (Auto) 2 Urine RBC (Auto) 8 Ur Epithelial Cells Rare Urine Mucus Rare RPR Titer T.pallidum Ab ([facility]) 01/23/18 07:00 WBC RBC Hgb Hct MCV MCH MCHC RDW Plt Count MPV Sodium Potassium Chloride Carbon Dioxide Anion Gap BUN Creatinine Creat Clearance w eGFR Random Glucose Calcium Total Bilirubin AST ALT Alkaline Phosphatase Total Protein Albumin Urine Color Urine Appearance Urine pH Ur Specific [place] Urine Protein Urine Glucose (UA) Urine Ketones Urine Blood Urine Nitrite Urine Bilirubin Urine Urobilinogen Ur Leukocyte Esterase Urine WBC (Auto) Urine RBC (Auto) Ur Epithelial Cells Urine Mucus RPR Titer Reactive 1:1 H T.pallidum Ab ([facility]) Previously reactive LABS NOTED Assessment: 01/24/18 12:40 WITHDRAWAL SX Plan: CONTINUE DETOX
[2018-01-24] MEDS: THIAMINE HCL 100 MG TABLET (FP) PO SCH (22:20)
[2018-01-25] MEDS: diazePAM 5 MG TABLET PO PRN ×2 (09:44→17:48)
[2018-01-25] MEDS: PRENATAL VITAMINS W/ FOLIC ACID TABLET (FP) PO SCH (09:44)
[2018-01-25] MEDS: NICOTINE 14 MG/24 HOURS TOPICAL PATCH TD SCH (09:45)
[2018-01-25] MEDS ORDERED: METHADONE HCL 5 MG TABLET (FOR DETOX USE ONLY) PO ONE (10:00)
--- NOTE | 2018-01-25 10:00 | PN ---
BHS Progress Note (SOAP) Subjective: DECREASED ANXIETY,SWEATS. ALERT O X 3. DETOX PROCEEDING WELL. Objective: 01/25/18 09:58 Vital Signs 01/25/18 01/25/18 01/25/18 03:30 06:04 09:35 Temperature 97.2 F L 98.2 F Pulse Rate 80 70 Respiratory 18 18 16 Rate Blood Pressure 108/64 106/64 Laboratory Tests 01/22/18 01/23/18 01/23/18 22:49 07:00 07:00 WBC 3.5 L D RBC 3.23 L Hgb 10.3 L Hct 29.1 L MCV 90.1 MCH 31.9 MCHC 35.4 RDW 14.0 D Plt Count 186 MPV 8.3 Sodium 136 Potassium 4.3 Chloride 101 Carbon Dioxide 29 Anion Gap 6 L BUN 8 D Creatinine 0.7 Creat Clearance w eGFR > 60 Random Glucose 98 Calcium 7.5 L Total Bilirubin 0.4 D AST 14 L D ALT 15 D Alkaline Phosphatase 56 D Total Protein 7.2 Albumin 2.6 L Urine Color Dkyellow Urine Appearance Slcloudy Urine pH 6.0 Ur Specific [place] 1.024 Urine Protein 1+ H Urine Glucose (UA) Negative Urine Ketones Negative Urine Blood Negative Urine Nitrite Negative Urine Bilirubin Negative Urine Urobilinogen 4.0 e.u/dl Ur Leukocyte Esterase Negative Urine WBC (Auto) 2 Urine RBC (Auto) 8 Ur Epithelial Cells Rare Urine Mucus Rare RPR Titer T.pallidum Ab ([facility]) 01/23/18 07:00 WBC RBC Hgb Hct MCV MCH MCHC RDW Plt Count MPV Sodium Potassium Chloride Carbon Dioxide Anion Gap BUN Creatinine Creat Clearance w eGFR Random Glucose Calcium Total Bilirubin AST ALT Alkaline Phosphatase Total Protein Albumin Urine Color Urine Appearance Urine pH Ur Specific [place] Urine Protein Urine Glucose (UA) Urine Ketones Urine Blood Urine Nitrite Urine Bilirubin Urine Urobilinogen Ur Leukocyte Esterase Urine WBC (Auto) Urine RBC (Auto) Ur Epithelial Cells Urine Mucus RPR Titer Reactive 1:1 H T.pallidum Ab ([facility]) Previously reactive Assessment: 01/25/18 09:58 WITHDRAWAL SX
[2018-01-25] MEDS: THIAMINE HCL 100 MG TABLET (FP) PO SCH (22:27)
[2018-01-25] MEDS: ZOLPIDEM TARTRATE 5 MG TABLET PO PRN (22:28)
[2018-01-26] MEDS ORDERED: METHADONE HCL 10 MG TABLET (FOR DETOX USE ONLY) PO ONE (10:00)
[2018-01-26] MEDS: PRENATAL VITAMINS W/ FOLIC ACID TABLET (FP) PO SCH (10:51)
[2018-01-26] MEDS: NICOTINE 14 MG/24 HOURS TOPICAL PATCH TD SCH (10:51)
--- NOTE | 2018-01-26 12:35 | PN ---
BHS Progress Note (SOAP) Subjective: ALERT O X 3. DETOX PROCEEDING WELL. PT REPORTS MET WITH COUNSELOR RE: AFTERCARE. MIGHT BE GOING TO [facility]. Objective: 01/26/18 12:35 Vital Signs 01/26/18 01/26/18 06:18 09:50 Temperature 98.4 F 96.7 F L Pulse Rate 97 H 94 H Respiratory 18 20 Rate Blood Pressure 101/58 99/52 Laboratory Tests 01/22/18 01/23/18 01/23/18 22:49 07:00 07:00 WBC 3.5 L D RBC 3.23 L Hgb 10.3 L Hct 29.1 L MCV 90.1 MCH 31.9 MCHC 35.4 RDW 14.0 D Plt Count 186 MPV 8.3 Sodium 136 Potassium 4.3 Chloride 101 Carbon Dioxide 29 Anion Gap 6 L BUN 8 D Creatinine 0.7 Creat Clearance w eGFR > 60 Random Glucose 98 Calcium 7.5 L Total Bilirubin 0.4 D AST 14 L D ALT 15 D Alkaline Phosphatase 56 D Total Protein 7.2 Albumin 2.6 L Urine Color Dkyellow Urine Appearance Slcloudy Urine pH 6.0 Ur Specific [place] 1.024 Urine Protein 1+ H Urine Glucose (UA) Negative Urine Ketones Negative Urine Blood Negative Urine Nitrite Negative Urine Bilirubin Negative Urine Urobilinogen 4.0 e.u/dl Ur Leukocyte Esterase Negative Urine WBC (Auto) 2 Urine RBC (Auto) 8 Ur Epithelial Cells Rare Urine Mucus Rare RPR Titer T.pallidum Ab ([facility]) 01/23/18 07:00 WBC RBC Hgb Hct MCV MCH MCHC RDW Plt Count MPV Sodium Potassium Chloride Carbon Dioxide Anion Gap BUN Creatinine Creat Clearance w eGFR Random Glucose Calcium Total Bilirubin AST ALT Alkaline Phosphatase Total Protein Albumin Urine Color Urine Appearance Urine pH Ur Specific [place] Urine Protein Urine Glucose (UA) Urine Ketones Urine Blood Urine Nitrite Urine Bilirubin Urine Urobilinogen Ur Leukocyte Esterase Urine WBC (Auto) Urine RBC (Auto) Ur Epithelial Cells Urine Mucus RPR Titer Reactive 1:1 H T.pallidum Ab ([facility]) Previously reactive Assessment: 01/26/18 12:35 DECREASED WITHDRAWAL SX Plan: CONTINUE DETOX
[2018-01-26] MEDS: THIAMINE HCL 100 MG TABLET (FP) PO SCH (22:18)
[2018-01-26] MEDS: ZOLPIDEM TARTRATE 5 MG TABLET PO PRN (22:18)
[2018-01-26] MEDS: BACITRACIN 0.9 GM PACKET TP SCH (23:43)
[2018-01-27] MEDS ORDERED: METHADONE HCL 5 MG TABLET (FOR DETOX USE ONLY) PO ONE (06:00)
[2018-01-27 09:18] VITALS: BP 112/72; PULSE 94; TEMP 98.5
[2018-01-27] MEDS: PRENATAL VITAMINS W/ FOLIC ACID TABLET (FP) PO SCH (10:43)
[2018-01-27] MEDS: BACITRACIN 0.9 GM PACKET TP SCH (10:43)
[2018-01-27] MEDS: NICOTINE 14 MG/24 HOURS TOPICAL PATCH TD SCH (10:43)
--- NOTE | 2018-01-27 15:45 | PN ---
BHS Progress Note (SOAP) Subjective: Patient denies current Detox symptoms and reports that he feels well overall. Objective: PATIENT A & O X 3, OBSERVED AMBULATING ON UNIT. NO ACUTE DISTRESS. 01/27/18 15:43 Vital Signs Temperature 98.5 F 01/27/18 09:17 Pulse Rate 94 H 01/27/18 09:17 Respiratory Rate 20 01/27/18 09:17 Blood Pressure 112/72 01/27/18 09:17 O2 Sat by Pulse Oximetry (%) Laboratory Tests 01/22/18 01/23/18 01/23/18 22:49 07:00 07:00 WBC 3.5 L D RBC 3.23 L Hgb 10.3 L Hct 29.1 L MCV 90.1 MCH 31.9 MCHC 35.4 RDW 14.0 D Plt Count 186 MPV 8.3 Sodium 136 Potassium 4.3 Chloride 101 Carbon Dioxide 29 Anion Gap 6 L BUN 8 D Creatinine 0.7 Creat Clearance w eGFR > 60 Random Glucose 98 Calcium 7.5 L Total Bilirubin 0.4 D AST 14 L D ALT 15 D Alkaline Phosphatase 56 D Total Protein 7.2 Albumin 2.6 L Urine Color Dkyellow Urine Appearance Slcloudy Urine pH 6.0 Ur Specific [place] 1.024 Urine Protein 1+ H Urine Glucose (UA) Negative Urine Ketones Negative Urine Blood Negative Urine Nitrite Negative Urine Bilirubin Negative Urine Urobilinogen 4.0 e.u/dl Ur Leukocyte Esterase Negative Urine WBC (Auto) 2 Urine RBC (Auto) 8 Ur Epithelial Cells Rare Urine Mucus Rare RPR Titer T.pallidum Ab ([facility]) 01/23/18 07:00 WBC RBC Hgb Hct MCV MCH MCHC RDW Plt Count MPV Sodium Potassium Chloride Carbon Dioxide Anion Gap BUN Creatinine Creat Clearance w eGFR Random Glucose Calcium Total Bilirubin AST ALT Alkaline Phosphatase Total Protein Albumin Urine Color Urine Appearance Urine pH Ur Specific [place] Urine Protein Urine Glucose (UA) Urine Ketones Urine Blood Urine Nitrite Urine Bilirubin Urine Urobilinogen Ur Leukocyte Esterase Urine WBC (Auto) Urine RBC (Auto) Ur Epithelial Cells Urine Mucus RPR Titer Reactive 1:1 H T.pallidum Ab ([facility]) Previously reactive LABS NOTED. Assessment: 01/27/18 15:44 COMPLETION OF DETOX REGIMEN. Plan: PATIENT SCHEDULED FOR DISCHARGE FROM DETOX UNIT TODAY. PATIENT WILL GO TO [facility] FOR AFTERCARE.
--- NOTE | 2018-01-27 15:50 | DS ---
[facility] Detox Discharge Summary Admission Date: 01/22/18 Discharge Date: 01/27/18 - History Present History: Alcohol Dependence, Cocaine Dependence, Opioid Dependence Additional Comments: PATIENT GOING TO [facility] FOR AFTERCARE. PATIENT WAS DISCHARGED FROM DETOX UNIT TO BE TAKEN TO REHAB UNIT IN STABLE MEDICAL CONDITION. Pertinent Past History: Insomnia, Cheilitis, Hep C, HIV, Urinary Frequency, History of Positive PPD, Urinary Frequency, Anemia, Back Pain, Anemia. - Physical Exam Results Vital Signs: Vital Signs Temperature 98.5 F 01/27/18 09:17 Pulse Rate 94 H 01/27/18 09:17 Respiratory Rate 20 01/27/18 09:17 Blood Pressure 112/72 01/27/18 09:17 O2 Sat by Pulse Oximetry (%) Pertinent Admission Physical Exam Findings: WITHDRAWAL SYMPTOMS. Laboratory Tests 01/22/18 01/23/18 01/23/18 22:49 07:00 07:00 WBC 3.5 L D RBC 3.23 L Hgb 10.3 L Hct 29.1 L MCV 90.1 MCH 31.9 MCHC 35.4 RDW 14.0 D Plt Count 186 MPV 8.3 Sodium 136 Potassium 4.3 Chloride 101 Carbon Dioxide 29 Anion Gap 6 L BUN 8 D Creatinine 0.7 Creat Clearance w eGFR > 60 Random Glucose 98 Calcium 7.5 L Total Bilirubin 0.4 D AST 14 L D ALT 15 D Alkaline Phosphatase 56 D Total Protein 7.2 Albumin 2.6 L Urine Color Dkyellow Urine Appearance Slcloudy Urine pH 6.0 Ur Specific [place] 1.024 Urine Protein 1+ H Urine Glucose (UA) Negative Urine Ketones Negative Urine Blood Negative Urine Nitrite Negative Urine Bilirubin Negative Urine Urobilinogen 4.0 e.u/dl Ur Leukocyte Esterase Negative Urine WBC (Auto) 2 Urine RBC (Auto) 8 Ur Epithelial Cells Rare Urine Mucus Rare RPR Titer T.pallidum Ab (A) 01/23/18 07:00 WBC RBC Hgb Hct MCV MCH MCHC RDW Plt Count MPV Sodium Potassium Chloride Carbon Dioxide Anion Gap BUN Creatinine Creat Clearance w eGFR Random Glucose Calcium Total Bilirubin AST ALT Alkaline Phosphatase Total Protein Albumin Urine Color Urine Appearance Urine pH Ur Specific [place] Urine Protein Urine Glucose (UA) Urine Ketones Urine Blood Urine Nitrite Urine Bilirubin Urine Urobilinogen Ur Leukocyte Esterase Urine WBC (Auto) Urine RBC (Auto) Ur Epithelial Cells Urine Mucus RPR Titer Reactive 1:1 H T.pallidum Ab ([facility]) Previously reactive LABS NOTED. - Treatment Hospital Course: Detox Protocol Followed, Detoxed Safely, Responded well, Discharged Condition Good, Rehab Referral Accepted Patient has Accepted a Rehab Referral to: [facility] (MARCIA N.Andriy.) . - Medication Discharge Medications: Ambulatory Orders NK [No Known Home Medication] 01/27/18 - Diagnosis (1) Alcohol dependence with uncomplicated withdrawal Status: Acute (2) Back pain Status: Acute Qualifiers: Back pain location: low back pain Back pain laterality: bilateral Sciatica presence: without sciatica (3) Cheilitis Status: Acute (4) Cocaine dependence, uncomplicated Status: Acute (5) Drug-induced mood disorder Status: Acute (6) Insomnia Status: Acute Qualifiers: Insomnia type: unspecified Qualified Code(s): G47.00 - Insomnia, unspecified (7) Nicotine dependence Status: Acute Qualifiers: Nicotine product type: cigarettes Substance use status: in withdrawal Qualified Code(s): F17.213 - Nicotine dependence, cigarettes, with withdrawal (8) Opioid dependence with withdrawal Status: Acute (9) Urinary frequency Status: Acute (10) Weight loss Status: Acute (11) Bilateral knee pain Status: Chronic Qualifiers: Chronicity: chronic Qualified Code(s): M25.561 - Pain in right knee; M25.562 - Pain in left knee; M25.562 - Pain in left knee; G89.29 - Other chronic pain; G89.29 - Other chronic pain (12) HIV (human immunodeficiency virus infection) Status: Chronic (13) Nonadherence to medication Status: Chronic (14) Positive PPD Status: Resolved (15) Anemia Status: Chronic Qualifiers: Anemia type: iron deficiency Iron deficiency anemia type: inadequate dietary iron intake Qualified Code(s): D50.8 - Other iron deficiency anemias - AMA Did Patient Leave Against Medical Advice: No
== END 2018-01-27 01:07 | disposition other institution (70) | DRG 773 ==
LOC: YASAS 14:43 → Y3N 18:33
PROVIDERS: ADMIT Internal Medicine; ATTEND Internal Medicine
PROC: HZ2ZZZZ Detoxification Services for Substance Abuse Treatment (ICD-10-PCS; principal; 2018-01-22)
DX: F11.23 Opioid dependence with withdrawal (principal); F10.230 Alcohol dependence with withdrawal, uncomplicated; F14.20 Cocaine dependence, uncomplicated; F17.213 Nicotine dependence, cigarettes, with withdrawal; F19.24 Other psychoactive substance dependence with psychoactive substance-induced mood disorder; D50.8 Other iron deficiency anemias; R76.11 Nonspecific reaction to tuberculin skin test without active tuberculosis; K13.0 Diseases of lips; M25.561 Pain in right knee; M25.562 Pain in left knee; G89.29 Other chronic pain; R35.0 Frequency of micturition; R63.4 Abnormal weight loss; Z68.20 Body mass index [BMI] 20.0-20.9, adult
CPT/HCPCS: 36415; 80053; 81003; 81015; 85027; 86593; 86780; 87086; 93005; 93010

== ENCOUNTER 2018-01-27 13:13 | Inpatient (IN) | payer OTHER ==
[2018-01-27] MEDS ORDERED: IBUPROFEN 400 MG TABLET (FP) PO PRN (15:56)
[2018-01-27] MEDS ORDERED: ACETAMINOPHEN 325 MG TABLET (FP) PO PRN (15:56)
[2018-01-27] MEDS ORDERED: MAG HYDROX/AL HYDROX/SIMETH 30 ML UNIT-DOSE CUP PO PRN (15:56)
[2018-01-27] MEDS ORDERED: P-EPHED 60MG/TRIPROLIDI 2.5MG TABLET PO PRN (15:56)
[2018-01-27] MEDS ORDERED: MENTHOL/PHENOL 1 EACH UD MM PRN (15:56)
[2018-01-27] MEDS ORDERED: MAGNESIUM CITRATE 300 ML BOTTLE PO PRN (15:56)
[2018-01-27] MEDS ORDERED: NICOTINE POLACRILEX 2 MG GUM BUC PRN (15:56)
[2018-01-27] MEDS ORDERED: guaiFENesin/D-METHORPHAN HB 10 ML UNIT-DOSE CUPS PO PRN (15:56)
[2018-01-27] MEDS ORDERED: MAGNESIUM HYDROX 2400MG/30ML ORAL SUSPENSION 30 ML CUP PO PRN (15:56)
[2018-01-27] MEDS ORDERED: LOPERAMIDE HCL 2 MG CAPSULE PO PRN (15:56)
--- NOTE | 2018-01-27 15:59 | HP ---
[facility] Rehab Assess/Revision - Admission History Admitted to Rehab from: Andriy [facility] Date of Admission to Rehab: 01/27/2018 - Vital signs Vital Signs: Vital Signs Period Temp Pulse Resp BP Sys/Bradford Pulse Ox Last 24 Hr 99.3 F 91 18 120/69 - Findings Detox History & Physical reviewed: Yes Concur with findings: Yes Comments/Additional Findings: PATIENT'S MEDICAL / MEDICATION HISTORY REVIEWED PRIOR TO DISCHARGE FROM DETOX UNIT. PATIENT ABLE TO AMBULATE UNASSISTED. PATIENT WAS DISCHARGED FROM DETOX UNIT TO BE TAKEN TO REHAB UNIT IN STABLE MEDICAL CONDITION. Inpatient Rehab Admission - Initial Determination Are CD services needed?: Yes Free of communicable disease: Yes Not in need of hospitalization: Yes - Rehab Admission Criteria Previous failed treatment: Yes Comorbidities: Yes Patient is meeting Inpatient Rehab admission criteria:: Yes
[2018-01-27] MEDS ORDERED: hydrOXYzine PAMOATE 50 MG CAPSULE (FP) PO PRN (21:11)
--- NOTE | 2018-01-27 21:17 | PN ---
[facility] Progress Note Note: [address] monkey note As per nursing report patient transfered today from [facility] detox, complaining for anxiety, agitation, reports not taking psychiatric medications at [facility], reports good response on Seroquel in the past Patient started on: Seroquel 100mg po qhs Vistaril 50mg po prn q4 for agitation and anxiety
[2018-01-27] MEDS ORDERED: MELATONIN 5 MG TABLETS PO PRN (22:00)
[2018-01-27] MEDS: THIAMINE HCL 100 MG TABLET (FP) PO SCH (22:05)
[2018-01-27] MEDS: BACITRACIN 0.9 GM PACKET TP SCH (22:05)
[2018-01-27] MEDS: QUEtiapine FUMARATE 100 MG TABLET (FP) PO SCH (22:05)
[2018-01-28] MEDS: PRENATAL VITAMINS W/ FOLIC ACID TABLET (FP) PO SCH (09:58)
[2018-01-28] MEDS: BACITRACIN 0.9 GM PACKET TP SCH ×2 (09:58→21:30)
[2018-01-28] MEDS: NICOTINE 14 MG/24 HOURS TOPICAL PATCH TD SCH (09:59)
[2018-01-28] MEDS: THIAMINE HCL 100 MG TABLET (FP) PO SCH (21:30)
[2018-01-28] MEDS: QUEtiapine FUMARATE 100 MG TABLET (FP) PO SCH (21:30)
--- NOTE | 2018-01-29 10:48 | HP ---
Psychiatrist Admission - Data Date of interview: 01/29/18 Admission source: [facility] Identifying data: This is the first [facility] inpatient rehabilitation amission for this 52 year old male who is single without dependents and currently homeless, he is unemployed and deprived of any source of income. Medical History: HIV infection since 1984 ,withdrawal-related seizures (history) ,hepatitis C,peptic ulcer disease,weight loss, chronic knee pain (bilateral), arthritis (patient ambulates with cane). Smokes cigarettes 3 a day. Psychiatric History: Patient reports history of depression, two psychiatric hospitalizations at [facility], "years ago", denies history of suicidal thoughts/attempts. States last attended outpatient clinic 2 years ago , was on Zoloft 50 mg po daily and Seroquel 100 mg po hs, reports has been feeling depressed and unable to sleep. Vital Signs: Vital Signs - 24 hr 01/29/18 01/29/18 01/29/18 00:30 03:30 06:48 Temperature 97.6 F Pulse Rate 74 Respiratory 18 18 18 Rate Blood Pressure 102/68 Allergies/Adverse Reactions: Allergies Allergy/AdvReac Type Severity Reaction Status Date / Time No Known Allergies Allergy Verified 01/23/18 01:21 Date of last physical exam: 01/23/18 Concur with the findings of this exam: Yes - Substance Abuse/Tx History Hx Alcohol Use: No Hx Substance Use: Yes Substance Use Type: Alcohol, Cocaine (bags daily ), Heroin (7 bags daily ) Hx Substance Use Treatment: Yes Mental Status Exam - Mental Status Exam Alert and Oriented to: Time, Place, Person Cognitive Function: Grossly Intact Patient Appearance: Unkempt Mood: Sad Affect: Appropriate, Mood Congruent Patient Behavior: Appropriate, Cooperative Speech Pattern: Clear, Appropriate Voice Loudness: Normal Thought Process: Intact, Goal Oriented Thought Disorder: Not Present Hallucinations: Denies Suicidal Ideation: Denies Homicidal Ideation: Denies Insight/Judgement: Fair Sleep: Fair Appetite: Good Muscle strength/Tone: Normal Gait/Station: Other (walks with a cane.) Psychiatric Findings - Problem List ([place] 1, 2,3) (1) Cocaine dependence Current Visit: Yes Status: Acute (2) Opioid dependence Current Visit: Yes Status: Acute (3) Drug-induced mood disorder Current Visit: No Status: Acute (4) Nicotine dependence Current Visit: No Status: Acute Qualifiers: Nicotine product type: cigarettes Substance use status: in withdrawal Qualified Code(s): F17.213 - Nicotine dependence, cigarettes, with withdrawal - Initial Treatment Plan Initial Treatment Plan: Will continue Zoloft and Seroquel , monitor progress as needed.
[2018-01-29] MEDS: BACITRACIN 0.9 GM PACKET TP SCH ×2 (10:49→21:45)
[2018-01-29] MEDS: NICOTINE 14 MG/24 HOURS TOPICAL PATCH TD SCH (10:49)
[2018-01-29] MEDS: PRENATAL VITAMINS W/ FOLIC ACID TABLET (FP) PO SCH (10:49)
[2018-01-29] MEDS: QUEtiapine FUMARATE 100 MG TABLET (FP) PO SCH (21:45)
[2018-01-29] MEDS: THIAMINE HCL 100 MG TABLET (FP) PO SCH (21:45)
[2018-01-30] MEDS: PRENATAL VITAMINS W/ FOLIC ACID TABLET (FP) PO SCH (10:17)
[2018-01-30] MEDS: NICOTINE 14 MG/24 HOURS TOPICAL PATCH TD SCH (10:17)
[2018-01-30] MEDS: BACITRACIN 0.9 GM PACKET TP SCH ×2 (10:17→21:34)
[2018-01-30] MEDS: SERTRALINE HCL 50 MG TABLET (FP) PO SCH (10:17)
[2018-01-30] MEDS ORDERED: ONDANSETRON *ODT* 4 MG TABLET SL PRN (15:47)
--- NOTE | 2018-01-30 15:50 | PN ---
[facility] Progress Note Note: c/o nausea and vomiting reported by RN. jo PRN continue to monitor
[2018-01-30] MEDS: THIAMINE HCL 100 MG TABLET (FP) PO SCH (21:34)
[2018-01-30] MEDS: QUEtiapine FUMARATE 100 MG TABLET (FP) PO SCH (21:35)
[2018-01-31 06:47] VITALS: BP 116/60; PULSE 92; TEMP 98.7
[2018-01-31] MEDS: PRENATAL VITAMINS W/ FOLIC ACID TABLET (FP) PO SCH (10:13)
[2018-01-31] MEDS: BACITRACIN 0.9 GM PACKET TP SCH (10:13)
[2018-01-31] MEDS: NICOTINE 14 MG/24 HOURS TOPICAL PATCH TD SCH (10:14)
[2018-01-31] MEDS: SERTRALINE HCL 50 MG TABLET (FP) PO SCH (10:14)
--- NOTE | 2018-02-01 10:50 | PN ---
S Progress Note Note: was informed by a nurse Mc Mallika(evening shift) on 01/31/18 that patient walked away from the unit, please see medical staff notes.
== END 2018-01-31 16:25 | disposition left against medical advice (07) | DRG 770 ==
LOC: YASAS 13:13 → UNDOADMIN 13:14 → Y5N 13:14
PROVIDERS: ADMIT Psychiatry & Neurology Psychiatry; ATTEND Psychiatry & Neurology Psychiatry
PROC: HZ42ZZZ Group Counseling for Substance Abuse Treatment, Cognitive-Behavioral (ICD-10-PCS; principal; 2018-01-27)
DX: F11.20 Opioid dependence, uncomplicated (principal); F14.20 Cocaine dependence, uncomplicated; F17.213 Nicotine dependence, cigarettes, with withdrawal; F19.24 Other psychoactive substance dependence with psychoactive substance-induced mood disorder; B18.2 Chronic viral hepatitis C; M19.90 Unspecified osteoarthritis, unspecified site; R26.2 Difficulty in walking, not elsewhere classified; Z99.89 Dependence on other enabling machines and devices; Z86.69 Personal history of other diseases of the nervous system and sense organs; Z87.11 Personal history of peptic ulcer disease; Z87.898 Personal history of other specified conditions

== ENCOUNTER 2018-04-09 13:29 | Inpatient (IN) | payer OTHER ==
[2018-04-09 13:49] VITALS: BMI 19.6
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
[2018-04-09] MEDS ORDERED: NICOTINE POLACRILEX 2 MG GUM BC PRN (17:51)
[2018-04-09] MEDS ORDERED: ACETAMINOPHEN 325 MG TABLET (FP) PO PRN (17:51)
[2018-04-09] MEDS ORDERED: guaiFENesin/D-METHORPHAN HB 10 ML UNIT-DOSE CUPS PO PRN (17:51)
[2018-04-09] MEDS ORDERED: P-EPHED 60MG/TRIPROLIDI 2.5MG TABLET PO PRN (17:51)
[2018-04-09] MEDS ORDERED: IBUPROFEN 400 MG TABLET (FP) PO PRN (17:51)
[2018-04-09] MEDS ORDERED: MAGNESIUM HYDROX 2400MG/30ML ORAL SUSPENSION 30 ML CUP PO PRN (17:51)
[2018-04-09] MEDS ORDERED: MAG HYDROX/AL HYDROX/SIMETH 30 ML UNIT-DOSE CUP PO PRN (17:51)
[2018-04-09] MEDS ORDERED: MAGNESIUM CITRATE 300 ML BOTTLE PO PRN (17:51)
[2018-04-09] MEDS ORDERED: hydrOXYzine PAMOATE 25 MG CAPSULE (FP) PO PRN (17:51)
[2018-04-09] MEDS ORDERED: LOPERAMIDE HCL 2 MG CAPSULE PO PRN (17:51)
[2018-04-09] MEDS ORDERED: MENTHOL/PHENOL 1 EACH UD MM PRN (17:51)
[2018-04-09] MEDS: diazePAM 5 MG TABLET PO PRN (18:21)
[2018-04-09] MEDS ORDERED: METHADONE HCL 10 MG TABLET (FOR DETOX USE ONLY) PO ONE ×2 (18:30→23:00)
[2018-04-09] MEDS: AMOX TR/POT CLAV 500MG/125MG TABLETS (FP) PO SCH ×2 (19:34→22:27)
[2018-04-09] MEDS: THIAMINE HCL 100 MG TABLET (FP) PO SCH (22:27)
[2018-04-09] MEDS: valACYclovir HCL 500 MG TABLET (FP) PO SCH (22:27)
[2018-04-09] MEDS: MELATONIN 5 MG TABLETS PO PRN (22:27)
[2018-04-09] MEDS: BACITRACIN 0.9 GM PACKET TP SCH (22:29)
[2018-04-09] MEDS: BETAMETHASONE DIP 0.05% TP LOTION 30 ML BOTTLE TP SCH (22:42)
[2018-04-10 01:49] LABS: URINE APPEARANCE CLEAR; URINE BILIRUBIN NEGATIVE (<2.0 mg/dL); URINE COLOR YELLOW; URINE GLUCOSE (UA) NEGATIVE (NEGATIVE); URINE KETONE NEGATIVE (NEGATIVE); URINE LEUK ESTERASE NEGATIVE (NEGATIVE); URINE NITRITE NEGATIVE (NEGATIVE); URINE PROTEIN NEGATIVE (NEGATIVE)
[2018-04-10] MEDS: AMOX TR/POT CLAV 500MG/125MG TABLETS (FP) PO SCH ×3 (06:21→22:06)
[2018-04-10] MEDS: diazePAM 5 MG TABLET PO PRN ×3 (06:23→22:06)
[2018-04-10] MEDS ORDERED: METHADONE HCL 10 MG TABLET (FOR DETOX USE ONLY) PO ONE (10:00)
[2018-04-10] MEDS ORDERED: AZITHROMYCIN 600 MG TABLET PO SCH (10:00)
[2018-04-10] MEDS: PRENATAL VITAMINS W/ FOLIC ACID TABLET (FP) PO SCH (10:21)
[2018-04-10] MEDS: BETAMETHASONE DIP 0.05% TP LOTION 30 ML BOTTLE TP SCH ×2 (10:21→22:07)
[2018-04-10] MEDS: SULFAMETHOXAZOLE/TRIMETHOPRIM 800MG/160MG D.S. TABLET PO SCH (10:21)
[2018-04-10] MEDS: BACITRACIN 0.9 GM PACKET TP SCH ×2 (10:21→22:06)
[2018-04-10] MEDS: FLUCONAZOLE 100 MG TABLET (UD) PO SCH (10:22)
[2018-04-10] MEDS: valACYclovir HCL 500 MG TABLET (FP) PO SCH ×2 (10:22→22:06)
[2018-04-10] MEDS: NICOTINE 7 MG/24 HOURS TOPICAL PATCH TD SCH (10:22)
[2018-04-10 10:54] LABS: HEMATOCRIT 35.4 % (35.4-49); HEMOGLOBIN 12.3 GM/dL (11.7-16.9); MCH 30.6 pg (25.7-33.7); MCHC 34.7 g/dl (32.0-35.9); MEAN CELL VOLUME 88.3 fl (80-96); PLATELET COUNT 261 K/MM3 (134-434); RBC 4.01 M/mm3 (4.00-5.60); RDW 16.8 % (11.9-15.9)
[2018-04-10 10:56] LABS: BLOOD UREA NITROGEN 13 mg/dL (7-18); CHLORIDE 103 mmol/L (98-107); CO2 28 mmol/L (21-32); CREATININE 0.7 mg/dL (0.7-1.3); GLUCOSE,RANDOM 94 mg/dL (74-106); POTASSIUM 4.7 mmol/L (3.5-5.1); SODIUM 138 mmol/L (136-145)
[2018-04-10 10:57] LABS: ALBUMIN 2.7 g/dl (3.4-5.0); ANION GAP 7 (8-16); CALCIUM 8.4 mg/dL (8.5-10.1); SGOT/AST 16 U/L (15-37); SGPT/ALT 19 U/L (12-78)
[2018-04-10 10:58] LABS: ALK PHOS 72 U/L (45-117); BILIRUBIN,TOTAL 0.2 mg/dL (0.2-1.0); TOT PROT 7.9 g/dl (6.4-8.2)
--- NOTE | 2018-04-10 11:41 | PN ---
[facility] COWS - Scale Resting Pulse: 0= [place] 80 or Below Sweatin= Chills/Flushing Restless Observation: 3= Extraneous Movement Pupil Size: 2= Moderately Dilated Bone or Joint Aches: 4=Acute Joint/Muscle Pain Runny Nose/ Eye Tearin= Nasal Congestion GI Upset > 30mins: 0= None Tremor Observation of Outstretched Hands: 1= Tremor [place], Not Seen Yawning Observation: 0= None Anxiety or Irritability: 2=Irritable/Anxious Goose Flesh Skin: 0=Smooth Skin COWS Score: 14 B[facility] Progress Note (SOAP) Subjective: PT C/O ANXIETY,IRRITABILITY,FATIGUE,INTERMITTENT SLEEP. C/O SCROTAL PAIN DUE TO CELLULITIS OF SCROTUM. PT ON ANTIBIOTICS(SEE ADMISSION H/P) Objective: 04/10/18 11:40 Vital Signs 04/10/18 04/10/18 06:08 10:46 Temperature 96.9 F L 97.4 F L Pulse Rate 57 L 76 Respiratory 18 18 Rate Blood Pressure 100/58 110/68 Laboratory Tests 04/09/18 04/10/18 04/10/18 22:01 07:00 07:00 WBC 3.0 L RBC 4.01 Hgb 12.3 Hct 35.4 MCV 88.3 MCH 30.6 MCHC 34.7 RDW 16.8 H Plt Count 261 D MPV 9.0 Sodium 138 Potassium 4.7 Chloride 103 Carbon Dioxide 28 Anion Gap 7 L BUN 13 Creatinine 0.7 Creat Clearance w eGFR > 60 Random Glucose 94 Calcium 8.4 L Total Bilirubin 0.2 AST 16 ALT 19 Alkaline Phosphatase 72 Total Protein 7.9 Albumin 2.7 L Urine Color Yellow Urine Appearance Clear Urine pH 8.0 D Ur Specific [place] 1.019 Urine Protein Negative Urine Glucose (UA) Negative Urine Ketones Negative Urine Blood Negative Urine Nitrite Negative Urine Bilirubin Negative Urine Urobilinogen 2.0 Ur Leukocyte Esterase Negative Assessment: 04/10/18 11:41 WITHDRAWAL SX Plan: CONTINUE DETOX INCREASE PO FLUIDS ENSURE PLUS DIRECTED.
[2018-04-10 12:39] LABS: RPR REACTIVE 1:1 (NONREACTIVE)
[2018-04-10 12:42] LABS: TREPONEMA ANTIBODY PREVIOUSLY REACTIVE (NONREACTIVE)
--- NOTE | 2018-04-10 16:31 | CONSULT ---
[facility] Psychiatric Consult - Data Date of interview: 04/10/18 Admission source: [facility] Identifying data: Patient is approached by this editorial writer for psychiatric interview.Mr Filippo refused.
--- NOTE | 2018-04-10 17:07 | EKG ---
Test Reason : Blood Pressure : / mmHG Vent. Rate : 058 BPM Atrial Rate : 058 BPM P-R Int : 132 ms QRS Dur : 078 ms QT Int : 446 ms P-R-T Axes : 071 075 081 degrees QTc Int : 437 ms SINUS BRADYCARDIA OTHERWISE NORMAL ECG WHEN COMPARED WITH ECG OF 05-MAR-2018 18:01, NO SIGNIFICANT CHANGE WAS FOUND Confirmed by MD JOANNA, RHONDA ([id number]) on 04/10/2018 5:06:39 PM Referred By: Confirmed By:RHONDA MARSHALL MD
[2018-04-10] MEDS: THIAMINE HCL 100 MG TABLET (FP) PO SCH (22:06)
[2018-04-11] MEDS: diazePAM 5 MG TABLET PO PRN (05:06)
[2018-04-11] MEDS: AMOX TR/POT CLAV 500MG/125MG TABLETS (FP) PO SCH ×3 (05:06→22:01)
[2018-04-11] MEDS ORDERED: METHADONE HCL 5 MG TABLET (FOR DETOX USE ONLY) PO ONE (10:00)
[2018-04-11] MEDS: SULFAMETHOXAZOLE/TRIMETHOPRIM 800MG/160MG D.S. TABLET PO SCH (10:35)
[2018-04-11] MEDS: PRENATAL VITAMINS W/ FOLIC ACID TABLET (FP) PO SCH (10:35)
[2018-04-11] MEDS: valACYclovir HCL 500 MG TABLET (FP) PO SCH ×2 (10:35→22:01)
[2018-04-11] MEDS: FLUCONAZOLE 100 MG TABLET (UD) PO SCH (10:35)
[2018-04-11] MEDS: BACITRACIN 0.9 GM PACKET TP SCH ×2 (10:35→22:01)
[2018-04-11] MEDS: BETAMETHASONE DIP 0.05% TP LOTION 30 ML BOTTLE TP SCH ×2 (10:36→22:01)
[2018-04-11] MEDS: NICOTINE 7 MG/24 HOURS TOPICAL PATCH TD SCH (10:46)
--- NOTE | 2018-04-11 13:08 | PN ---
[facility] COWS - Scale Resting Pulse: 0= [place] 80 or Below Sweatin= Chills/Flushing Restless Observation: 1= Difficult to Sit Still Pupil Size: 0= Normal to Room Light Bone or Joint Aches: 0= None Runny Nose/ Eye Tearin= Nasal Congestion GI Upset > 30mins: 2= Nausea/Diarrhea Tremor Observation of Outstretched Hands: 0= None Yawning Observation: 2= >3x During Session Anxiety or Irritability: 2=Irritable/Anxious Goose Flesh Skin: 3=Piloerection COWS Score: 12 [facility] Progress Note (SOAP) Subjective: Nausea, Sweating, Anxious. Objective: PATIENT A & O X 3, OBSERVED AMBULATING ON UNIT. NO ACUTE DISTRESS. 04/11/18 13:06 Vital Signs Temperature 98.1 F 04/11/18 09:18 Pulse Rate 72 04/11/18 09:18 Respiratory Rate 18 04/11/18 09:18 Blood Pressure 126/70 04/11/18 09:18 O2 Sat by Pulse Oximetry (%) Laboratory Tests 04/09/18 04/10/18 04/10/18 22:01 07:00 07:00 WBC 3.0 L RBC 4.01 Hgb 12.3 Hct 35.4 MCV 88.3 MCH 30.6 MCHC 34.7 RDW 16.8 H Plt Count 261 D MPV 9.0 Sodium 138 Potassium 4.7 Chloride 103 Carbon Dioxide 28 Anion Gap 7 L BUN 13 Creatinine 0.7 Creat Clearance w eGFR > 60 Random Glucose 94 Calcium 8.4 L Total Bilirubin 0.2 AST 16 ALT 19 Alkaline Phosphatase 72 Total Protein 7.9 Albumin 2.7 L Urine Color Yellow Urine Appearance Clear Urine pH 8.0 D Ur Specific [place] 1.019 Urine Protein Negative Urine Glucose (UA) Negative Urine Ketones Negative Urine Blood Negative Urine Nitrite Negative Urine Bilirubin Negative Urine Urobilinogen 2.0 Ur Leukocyte Esterase Negative RPR Titer T.pallidum Ab ([facility]) 04/10/18 07:00 WBC RBC Hgb Hct MCV MCH MCHC RDW Plt Count MPV Sodium Potassium Chloride Carbon Dioxide Anion Gap BUN Creatinine Creat Clearance w eGFR Random Glucose Calcium Total Bilirubin AST ALT Alkaline Phosphatase Total Protein Albumin Urine Color Urine Appearance Urine pH Ur Specific [place] Urine Protein Urine Glucose (UA) Urine Ketones Urine Blood Urine Nitrite Urine Bilirubin Urine Urobilinogen Ur Leukocyte Esterase RPR Titer Reactive 1:1 H T.pallidum Ab ([facility]) Previously reactive LABS NOTED. PATIENT HAS HAD LOW WBC LEVELS ON SEVERAL PREVIOUS ADMISSIONS. 04/11/18 13:08 Assessment: 04/11/18 13:07 WITHDRAWAL SYMPTOMS. LEUKOPENIA. 04/11/18 13:07 Plan: CONTINUE DETOX.
[2018-04-11] MEDS: MELATONIN 5 MG TABLETS PO PRN (22:01)
[2018-04-11] MEDS: THIAMINE HCL 100 MG TABLET (FP) PO SCH (22:01)
[2018-04-12] MEDS: AMOX TR/POT CLAV 500MG/125MG TABLETS (FP) PO SCH ×3 (05:35→22:42)
[2018-04-12] MEDS ORDERED: METHADONE HCL 5 MG TABLET (FOR DETOX USE ONLY) PO ONE (10:00)
[2018-04-12] MEDS: BETAMETHASONE DIP 0.05% TP LOTION 30 ML BOTTLE TP SCH ×2 (10:09→22:42)
[2018-04-12] MEDS: PRENATAL VITAMINS W/ FOLIC ACID TABLET (FP) PO SCH (10:09)
[2018-04-12] MEDS: BACITRACIN 0.9 GM PACKET TP SCH ×2 (10:09→22:42)
[2018-04-12] MEDS: valACYclovir HCL 500 MG TABLET (FP) PO SCH ×2 (10:10→22:42)
[2018-04-12] MEDS: FLUCONAZOLE 100 MG TABLET (UD) PO SCH (10:10)
[2018-04-12] MEDS: SULFAMETHOXAZOLE/TRIMETHOPRIM 800MG/160MG D.S. TABLET PO SCH (10:10)
[2018-04-12] MEDS: NICOTINE 7 MG/24 HOURS TOPICAL PATCH TD SCH (10:34)
--- NOTE | 2018-04-12 11:10 | PN ---
[facility] Progress Note (SOAP) Subjective: Fatigue, Tremors, Sweating. Objective: PATIENT A & O X 3. NO ACUTE DISTRESS. 04/12/18 11:07 Vital Signs Temperature 97.4 F L 04/12/18 09:35 Pulse Rate 73 04/12/18 09:35 Respiratory Rate 18 04/12/18 09:35 Blood Pressure 95/50 04/12/18 09:35 O2 Sat by Pulse Oximetry (%) Laboratory Tests 04/09/18 04/10/18 04/10/18 22:01 07:00 07:00 WBC 3.0 L RBC 4.01 Hgb 12.3 Hct 35.4 MCV 88.3 MCH 30.6 MCHC 34.7 RDW 16.8 H Plt Count 261 D MPV 9.0 Sodium 138 Potassium 4.7 Chloride 103 Carbon Dioxide 28 Anion Gap 7 L BUN 13 Creatinine 0.7 Creat Clearance w eGFR > 60 Random Glucose 94 Calcium 8.4 L Total Bilirubin 0.2 AST 16 ALT 19 Alkaline Phosphatase 72 Ammonia Total Protein 7.9 Albumin 2.7 L Urine Color Yellow Urine Appearance Clear Urine pH 8.0 D Ur Specific [place] 1.019 Urine Protein Negative Urine Glucose (UA) Negative Urine Ketones Negative Urine Blood Negative Urine Nitrite Negative Urine Bilirubin Negative Urine Urobilinogen 2.0 Ur Leukocyte Esterase Negative RPR Titer T.pallidum Ab ([facility]) 04/10/18 04/12/18 07:00 07:30 WBC RBC Hgb Hct MCV MCH MCHC RDW Plt Count MPV Sodium Potassium Chloride Carbon Dioxide Anion Gap BUN Creatinine Creat Clearance w eGFR Random Glucose Calcium Total Bilirubin AST ALT Alkaline Phosphatase Ammonia 60.58 H Total Protein Albumin Urine Color Urine Appearance Urine pH Ur Specific [place] Urine Protein Urine Glucose (UA) Urine Ketones Urine Blood Urine Nitrite Urine Bilirubin Urine Urobilinogen Ur Leukocyte Esterase RPR Titer Reactive 1:1 H T.pallidum Ab ([facility]) Previously reactive LABS NOTED. PATIENT HAS HAD A PREVIOUSLY REACTIVE RPR RESULT ON SEVERAL PREVIOUS ADMISSIONS. PATIENT REPORTS THAT HE COMPLETED A FULL COURSE OF ANTIBIOTIC TREATMENT FOR SYPHILIS IN THE PAST. 04/12/18 12:11 Assessment: 04/12/18 11:08 WITHDRAWAL SYMPTOMS. HYPERAMMONEMIA. 04/12/18 11:09 Plan: CONTINUE DETOX. INCREASE DAILY PO FLUID INTAKE. LACTULOSE, 20 GM QID. RE-CHECK AMMONIA LEVEL ON 04/14/2018.
[2018-04-12] MEDS: LACTULOSE 20 GM/30 ML UDC (FOR ORAL USE ONLY) PO SCH ×4 (12:22→22:42)
[2018-04-12] MEDS: THIAMINE HCL 100 MG TABLET (FP) PO SCH (22:42)
[2018-04-13] MEDS: AMOX TR/POT CLAV 500MG/125MG TABLETS (FP) PO SCH ×3 (05:12→22:06)
[2018-04-13] MEDS ORDERED: METHADONE HCL 10 MG TABLET (FOR DETOX USE ONLY) PO ONE (10:00)
[2018-04-13] MEDS: BETAMETHASONE DIP 0.05% TP LOTION 30 ML BOTTLE TP SCH ×2 (10:03→22:06)
[2018-04-13] MEDS: LACTULOSE 20 GM/30 ML UDC (FOR ORAL USE ONLY) PO SCH ×4 (10:03→22:06)
[2018-04-13] MEDS: PRENATAL VITAMINS W/ FOLIC ACID TABLET (FP) PO SCH (10:03)
[2018-04-13] MEDS: SULFAMETHOXAZOLE/TRIMETHOPRIM 800MG/160MG D.S. TABLET PO SCH (10:03)
[2018-04-13] MEDS: FLUCONAZOLE 100 MG TABLET (UD) PO SCH (10:04)
[2018-04-13] MEDS: BACITRACIN 0.9 GM PACKET TP SCH ×2 (10:04→22:06)
[2018-04-13] MEDS: valACYclovir HCL 500 MG TABLET (FP) PO SCH ×2 (10:04→22:06)
[2018-04-13] MEDS: NICOTINE 7 MG/24 HOURS TOPICAL PATCH TD SCH (10:24)
--- NOTE | 2018-04-13 12:02 | PN ---
BHS Progress Note (SOAP) Subjective: Sweating, Tremors. Objective: PATIENT A & O X 3, OBSERVED AMBULATING ON UNIT. NO ACUTE DISTRESS. 04/13/18 11:59 Vital Signs Temperature 97.3 F L 04/13/18 09:45 Pulse Rate 73 04/13/18 09:45 Respiratory Rate 16 04/13/18 09:45 Blood Pressure 98/52 04/13/18 09:45 O2 Sat by Pulse Oximetry (%) Laboratory Tests 04/09/18 04/10/18 04/10/18 22:01 07:00 07:00 WBC 3.0 L RBC 4.01 Hgb 12.3 Hct 35.4 MCV 88.3 MCH 30.6 MCHC 34.7 RDW 16.8 H Plt Count 261 D MPV 9.0 Sodium 138 Potassium 4.7 Chloride 103 Carbon Dioxide 28 Anion Gap 7 L BUN 13 Creatinine 0.7 Creat Clearance w eGFR > 60 Random Glucose 94 Calcium 8.4 L Total Bilirubin 0.2 AST 16 ALT 19 Alkaline Phosphatase 72 Ammonia Total Protein 7.9 Albumin 2.7 L Urine Color Yellow Urine Appearance Clear Urine pH 8.0 D Ur Specific [place] 1.019 Urine Protein Negative Urine Glucose (UA) Negative Urine Ketones Negative Urine Blood Negative Urine Nitrite Negative Urine Bilirubin Negative Urine Urobilinogen 2.0 Ur Leukocyte Esterase Negative RPR Titer T.pallidum Ab (MHA) 04/10/18 04/12/18 07:00 07:30 WBC RBC Hgb Hct MCV MCH MCHC RDW Plt Count MPV Sodium Potassium Chloride Carbon Dioxide Anion Gap BUN Creatinine Creat Clearance w eGFR Random Glucose Calcium Total Bilirubin AST ALT Alkaline Phosphatase Ammonia 60.58 H Total Protein Albumin Urine Color Urine Appearance Urine pH Ur Specific [place] Urine Protein Urine Glucose (UA) Urine Ketones Urine Blood Urine Nitrite Urine Bilirubin Urine Urobilinogen Ur Leukocyte Esterase RPR Titer Reactive 1:1 H T.pallidum Ab (MHA) Previously reactive LABS NOTED. Assessment: 04/13/18 12:00 WITHDRAWAL SYMPTOMS. HYPERAMMONEMIA. Plan: CONTINUE DETOX. INCREASE DAILY PO FLUID INTAKE. CONTINUE LACTULOSE. REPEAT AMMONIA LEVEL FOR TOMORROW AM. PATIENT SCHEDULED FOR D/C TOMORROW.
[2018-04-13] MEDS: THIAMINE HCL 100 MG TABLET (FP) PO SCH (22:06)
[2018-04-14] MEDS ORDERED: METHADONE HCL 5 MG TABLET (FOR DETOX USE ONLY) PO ONE (06:00)
[2018-04-14] MEDS: AMOX TR/POT CLAV 500MG/125MG TABLETS (FP) PO SCH (06:25)
[2018-04-14] MEDS: SULFAMETHOXAZOLE/TRIMETHOPRIM 800MG/160MG D.S. TABLET PO SCH (10:24)
[2018-04-14] MEDS: BACITRACIN 0.9 GM PACKET TP SCH (10:24)
[2018-04-14] MEDS: PRENATAL VITAMINS W/ FOLIC ACID TABLET (FP) PO SCH (10:24)
[2018-04-14] MEDS: LACTULOSE 20 GM/30 ML UDC (FOR ORAL USE ONLY) PO SCH (10:24)
[2018-04-14] MEDS: NICOTINE 7 MG/24 HOURS TOPICAL PATCH TD SCH (10:25)
[2018-04-14] MEDS: BETAMETHASONE DIP 0.05% TP LOTION 30 ML BOTTLE TP SCH (10:25)
[2018-04-14] MEDS: FLUCONAZOLE 100 MG TABLET (UD) PO SCH (10:25)
[2018-04-14] MEDS: valACYclovir HCL 500 MG TABLET (FP) PO SCH (10:25)
[2018-04-14 10:44] VITALS: BP 110/72; PULSE 84; TEMP 98.3
--- NOTE | 2018-04-14 19:17 | PN ---
S Progress Note (SOAP) Subjective: Patient denies current Detox symptoms and reports that he feels well overall. Objective: PATIENT A & O X 3, OBSERVED AMBULATING ON UNIT. NO ACUTE DISTRESS. 04/14/18 19:16 Vital Signs Temperature 98.3 F 04/14/18 10:43 Pulse Rate 84 04/14/18 10:43 Respiratory Rate 19 04/14/18 10:43 Blood Pressure 110/72 04/14/18 10:43 O2 Sat by Pulse Oximetry (%) Laboratory Tests 04/09/18 04/10/18 04/10/18 22:01 07:00 07:00 WBC 3.0 L RBC 4.01 Hgb 12.3 Hct 35.4 MCV 88.3 MCH 30.6 MCHC 34.7 RDW 16.8 H Plt Count 261 D MPV 9.0 Sodium 138 Potassium 4.7 Chloride 103 Carbon Dioxide 28 Anion Gap 7 L BUN 13 Creatinine 0.7 Creat Clearance w eGFR > 60 Random Glucose 94 Calcium 8.4 L Total Bilirubin 0.2 AST 16 ALT 19 Alkaline Phosphatase 72 Ammonia Total Protein 7.9 Albumin 2.7 L Urine Color Yellow Urine Appearance Clear Urine pH 8.0 D Ur Specific [place] 1.019 Urine Protein Negative Urine Glucose (UA) Negative Urine Ketones Negative Urine Blood Negative Urine Nitrite Negative Urine Bilirubin Negative Urine Urobilinogen 2.0 Ur Leukocyte Esterase Negative RPR Titer T.pallidum Ab (MHA) 04/10/18 04/12/18 07:00 07:30 WBC RBC Hgb Hct MCV MCH MCHC RDW Plt Count MPV Sodium Potassium Chloride Carbon Dioxide Anion Gap BUN Creatinine Creat Clearance w eGFR Random Glucose Calcium Total Bilirubin AST ALT Alkaline Phosphatase Ammonia 60.58 H Total Protein Albumin Urine Color Urine Appearance Urine pH Ur Specific [place] Urine Protein Urine Glucose (UA) Urine Ketones Urine Blood Urine Nitrite Urine Bilirubin Urine Urobilinogen Ur Leukocyte Esterase RPR Titer Reactive 1:1 H T.pallidum Ab (MHA) Previously reactive LABS NOTED. Assessment: 04/14/18 19:16 COMPLETION OF DETOX REGIMEN. Plan: PATIENT SCHEDULED FOR DISCHARGE FROM DETOX UNIT TODAY. PATIENT GOING TO [facility] (MARCIA N.Andriy[facility] FOR AFTERCARE.
--- NOTE | 2018-04-14 19:20 | DS ---
[facility] Detox Discharge Summary Admission Date: 04/09/18 Discharge Date: 04/14/18 - History Present History: Cocaine Dependence, Opioid Dependence Additional Comments: PATIENT GOING ON TO [facility] (Brice KENNEDY) FOR AFTERCARE. LACTULOSE TO BE CONTINUED FOR ELEVATED AMMONIA LEVEL NOTED WHILE PATIENT WAS ADMITTED FOR DETOX FOR THREE DAYS IN REHAB WITH AMMONIA LEVEL BEING CHECKED AGAIN AT COMPLETION. REASSESSMENT OF FOR POSSIBLE CONTINUATION OF LACTULOSE WITH DONE WHEN THAT RESULT IS AVAILABLE. PATIENT WAS DISCHARGED FROM DETOX UNIT TO BE TAKEN TO REHAB UNIT IN STABLE MEDICAL CONDITION. Pertinent Past History: Nicotine Dependence, HIV, Cellulitis of Scrotum, Chronic Pain of Left Lower Extremity, Acid Reflux of Stomach, Urinary Frequency, History of Cardiac Murmur , Hyperammonemia, Depression. - Physical Exam Results Vital Signs: Vital Signs Temperature 98.3 F 04/14/18 10:43 Pulse Rate 84 04/14/18 10:43 Respiratory Rate 19 04/14/18 10:43 Blood Pressure 110/72 04/14/18 10:43 O2 Sat by Pulse Oximetry (%) Pertinent Admission Physical Exam Findings: WITHDRAWAL SYMPTOMS. Laboratory Tests 04/09/18 04/10/18 04/10/18 22:01 07:00 07:00 WBC 3.0 L RBC 4.01 Hgb 12.3 Hct 35.4 MCV 88.3 MCH 30.6 MCHC 34.7 RDW 16.8 H Plt Count 261 D MPV 9.0 Sodium 138 Potassium 4.7 Chloride 103 Carbon Dioxide 28 Anion Gap 7 L BUN 13 Creatinine 0.7 Creat Clearance w eGFR > 60 Random Glucose 94 Calcium 8.4 L Total Bilirubin 0.2 AST 16 ALT 19 Alkaline Phosphatase 72 Ammonia Total Protein 7.9 Albumin 2.7 L Urine Color Yellow Urine Appearance Clear Urine pH 8.0 D Ur Specific [place] 1.019 Urine Protein Negative Urine Glucose (UA) Negative Urine Ketones Negative Urine Blood Negative Urine Nitrite Negative Urine Bilirubin Negative Urine Urobilinogen 2.0 Ur Leukocyte Esterase Negative RPR Titer T.pallidum Ab (A) 04/10/18 04/12/18 07:00 07:30 WBC RBC Hgb Hct MCV MCH MCHC RDW Plt Count MPV Sodium Potassium Chloride Carbon Dioxide Anion Gap BUN Creatinine Creat Clearance w eGFR Random Glucose Calcium Total Bilirubin AST ALT Alkaline Phosphatase Ammonia 60.58 H Total Protein Albumin Urine Color Urine Appearance Urine pH Ur Specific [place] Urine Protein Urine Glucose (UA) Urine Ketones Urine Blood Urine Nitrite Urine Bilirubin Urine Urobilinogen Ur Leukocyte Esterase RPR Titer Reactive 1:1 H T.pallidum Ab (MHA) Previously reactive LABS NOTED. - Treatment Hospital Course: Detox Protocol Followed, Detoxed Safely, Responded well, Discharged Condition Good, Rehab Referral Accepted Patient has Accepted a Rehab Referral to: [facility] (Br[facility] KENNEDY) . - Medication Discharge Medications: Ambulatory Orders Amoxicillin/Potassium Clav [Augmentin 500-125 Tablet] 1 each PO Q8H 04/09/18 Azithromycin [Zithromax -] 1,200 mg PO WEEKLY 04/09/18 Fluconazole [Diflucan -] 100 mg PO DAILY 04/09/18 Sulfamethoxazole/Trimethoprim [Bactrim Ds -] 1 tab PO DAILY 04/09/18 Valacyclovir HCl [Valtrex -] 500 mg PO BID 04/09/18 - Diagnosis (1) Cellulitis of scrotum Status: Acute (2) Cocaine dependence, uncomplicated Status: Acute (3) Nicotine dependence Status: Acute Qualifiers: Nicotine product type: cigarettes Substance use status: in withdrawal Qualified Code(s): F17.213 - Nicotine dependence, cigarettes, with withdrawal (4) Opioid dependence with withdrawal Status: Acute (5) Skin lesion due to intravenous drug abuse Status: Acute (6) Chronic pain of left lower extremity Status: Chronic (7) HIV (human immunodeficiency virus infection) Status: Chronic (8) Murmur, cardiac Status: Chronic (9) Urinary frequency Status: Chronic (10) Hyperammonemia Status: Acute - AMA Did Patient Leave Against Medical Advice: No
== END 2018-04-14 13:29 | disposition other institution (70) | DRG 773 ==
LOC: YASAS 13:29 → Y3N 17:57
PROVIDERS: ADMIT Surgery; ATTEND Surgery
PROC: HZ2ZZZZ Detoxification Services for Substance Abuse Treatment (ICD-10-PCS; principal; 2018-04-09)
DX: F11.23 Opioid dependence with withdrawal (principal); F14.20 Cocaine dependence, uncomplicated; F17.213 Nicotine dependence, cigarettes, with withdrawal; D72.819 Decreased white blood cell count, unspecified; Z21 Asymptomatic human immunodeficiency virus [HIV] infection status; N49.2 Inflammatory disorders of scrotum; L98.9 Disorder of the skin and subcutaneous tissue, unspecified; M79.662 Pain in left lower leg; G89.29 Other chronic pain; R01.1 Cardiac murmur, unspecified; R35.0 Frequency of micturition; E72.20 Disorder of urea cycle metabolism, unspecified; B18.2 Chronic viral hepatitis C
CPT/HCPCS: 36415; 80053; 81003; 82140; 85027; 86593; 86780; 93005; 93010

== ENCOUNTER 2018-04-14 14:20 | Inpatient (IN) | payer OTHER ==
[2018-04-14 14:57] VITALS: BMI 19.3
--- NOTE | 2018-04-14 15:12 | HP ---
[facility] Rehab Assess/Revision - Admission History Admitted to Rehab from: [facility] Date of Admission to Rehab: 04/14/18 - Findings Detox History & Physical reviewed: Yes Concur with findings: Yes Comments/Additional Findings: for rehab as protocol Inpatient Rehab Admission - Initial Determination Are CD services needed?: Yes Free of communicable disease: Yes Not in need of hospitalization: Yes - Rehab Admission Criteria Previous failed treatment: Yes Poor recovery environment: Yes Comorbidities: Yes Lacks judgement: No Patient is meeting Inpatient Rehab admission criteria:: Yes
[2018-04-14] MEDS ORDERED: LOPERAMIDE HCL 2 MG CAPSULE PO PRN (15:20)
[2018-04-14] MEDS ORDERED: hydrOXYzine PAMOATE 50 MG CAPSULE (FP) PO PRN (15:20)
[2018-04-14] MEDS ORDERED: guaiFENesin/D-METHORPHAN HB 10 ML UNIT-DOSE CUPS PO PRN (15:20)
[2018-04-14] MEDS ORDERED: MAG HYDROX/AL HYDROX/SIMETH 30 ML UNIT-DOSE CUP PO PRN (15:20)
[2018-04-14] MEDS ORDERED: MENTHOL/PHENOL 1 EACH UD MM PRN (15:20)
[2018-04-14] MEDS ORDERED: ACETAMINOPHEN 325 MG TABLET (FP) PO PRN (15:20)
[2018-04-14] MEDS ORDERED: P-EPHED 60MG/TRIPROLIDI 2.5MG TABLET PO PRN (15:20)
[2018-04-14] MEDS ORDERED: MAGNESIUM CITRATE 300 ML BOTTLE PO PRN (15:20)
[2018-04-14] MEDS ORDERED: IBUPROFEN 400 MG TABLET (FP) PO PRN (15:20)
[2018-04-14] MEDS ORDERED: MAGNESIUM HYDROX 2400MG/30ML ORAL SUSPENSION 30 ML CUP PO PRN (15:20)
[2018-04-14] MEDS ORDERED: AMOX TR/POT CLAV 500MG/125MG TABLETS (FP) PO SCH (15:30)
--- NOTE | 2018-04-14 15:38 | PN ---
[facility] Progress Note Note: PATIENT ADMITTED TO REHAB. PRIOR TO ADMISSION TO DETOX, PATIENT PRESCRIBED AUGMENTIN, DIFLUCAN, BACTRIM, ZITHROMAX, AND VALTREX FOR CELLULITIS OF SCROTUM AND FOR CONDITIONS RELATED TO HISTORY OF HIV. THESE MEDICATIONS WERE CONTINUED WHILE PATIENT WAS ADMITTED TO DETOX AND WILL BE CONTINUED WHILE HE IS ADMITTED FOR REHAB. PATIENT FOUND TO HIGH AMMONIA LEVEL WHILE ADMITTED FOR DETOX. LACTULOSE STARTED WHILE ADMITTED FOR DETOX, WILL BE CONTINUED DURING REHAB FOR 3 DAYS. RE-CHECK AMMONIA LEVEL AFTER THAT (04/18/2018) AND RE-ASSESS FOR POSSIBLE CONTINUED TREATMENT AT THAT TIME. Joseluis COOLEY NP
[2018-04-14] MEDS ORDERED: AZITHROMYCIN 600 MG TABLET PO SCH (17:30)
[2018-04-14] MEDS: AMOX TR/POT CLAV 500MG/125MG TABLETS (FP) PO SCH (18:29)
[2018-04-14] MEDS ORDERED: THIAMINE HCL 100 MG TABLET (FP) PO SCH (22:00)
[2018-04-14] MEDS ORDERED: MELATONIN 5 MG TABLETS PO PRN (22:00)
[2018-04-14] MEDS: valACYclovir HCL 500 MG TABLET (FP) PO SCH (22:12)
[2018-04-14] MEDS: LACTULOSE 20 GM/30 ML UDC (FOR ORAL USE ONLY) PO SCH (22:12)
[2018-04-15] MEDS: LACTULOSE 20 GM/30 ML UDC (FOR ORAL USE ONLY) PO SCH ×2 (07:00→15:05)
[2018-04-15] MEDS: AMOX TR/POT CLAV 500MG/125MG TABLETS (FP) PO SCH ×2 (07:03→15:05)
[2018-04-15 07:14] VITALS: BP 112/70; PULSE 78; TEMP 98.2
[2018-04-15] MEDS ORDERED: SULFAMETHOXAZOLE/TRIMETHOPRIM 800MG/160MG D.S. TABLET PO SCH (10:00)
[2018-04-15] MEDS ORDERED: FLUCONAZOLE 100 MG TABLET (UD) PO SCH (10:00)
[2018-04-15] MEDS ORDERED: PRENATAL VITAMINS W/ FOLIC ACID TABLET (FP) PO SCH (10:00)
[2018-04-15] MEDS: valACYclovir HCL 500 MG TABLET (FP) PO SCH (12:37)
== END 2018-04-15 14:52 | disposition left against medical advice (07) | DRG 770 ==
LOC: YASAS 14:20 → Y5N 14:21
PROVIDERS: ADMIT Psychiatry & Neurology Psychiatry; ATTEND Psychiatry & Neurology Psychiatry
PROC: HZ42ZZZ Group Counseling for Substance Abuse Treatment, Cognitive-Behavioral (ICD-10-PCS; principal; 2018-04-14)
DX: F10.20 Alcohol dependence, uncomplicated (principal); F14.20 Cocaine dependence, uncomplicated; N49.2 Inflammatory disorders of scrotum; Z21 Asymptomatic human immunodeficiency virus [HIV] infection status

== ENCOUNTER 2018-10-23 17:02 | Inpatient (IN) | payer OTHER ==
[2018-10-23 18:52] VITALS: BMI 22.3
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
[2018-10-23] MEDS ORDERED: P-EPHED 60MG/TRIPROLIDI 2.5MG TABLET PO PRN (20:34)
[2018-10-23] MEDS ORDERED: NICOTINE POLACRILEX 2 MG GUM BC PRN (20:34)
[2018-10-23] MEDS ORDERED: MENTHOL/PHENOL 1 EACH UD MM PRN (20:34)
[2018-10-23] MEDS ORDERED: METHADONE HCL 10 MG TABLET (FOR DETOX USE ONLY) PO ONE ×2 (20:34→23:00)
[2018-10-23] MEDS ORDERED: ACETAMINOPHEN 325 MG TABLET (FP) PO PRN (20:34)
[2018-10-23] MEDS ORDERED: MAGNESIUM HYDROX 2400MG/30ML ORAL SUSPENSION 30 ML CUP PO PRN (20:34)
[2018-10-23] MEDS ORDERED: MAG HYDROX/AL HYDROX/SIMETH 30 ML UNIT-DOSE CUP PO PRN (20:34)
[2018-10-23] MEDS ORDERED: hydrOXYzine PAMOATE 25 MG CAPSULE (FP) PO PRN (20:34)
[2018-10-23] MEDS ORDERED: MAGNESIUM CITRATE 300 ML BOTTLE PO PRN (20:34)
[2018-10-23] MEDS ORDERED: guaiFENesin/D-METHORPHAN HB 10 ML UNIT-DOSE CUPS PO PRN (20:34)
[2018-10-23] MEDS ORDERED: MELATONIN 5 MG TABLETS PO PRN (22:00)
[2018-10-23] MEDS: THIAMINE HCL 100 MG TABLET (FP) PO SCH (22:53)
[2018-10-24] MEDS ORDERED: METHADONE HCL 10 MG TABLET (FOR DETOX USE ONLY) PO ONE (10:00)
[2018-10-24] MEDS: PRENATAL VITAMINS W/ FOLIC ACID TABLET (FP) PO SCH (10:25)
--- NOTE | 2018-10-24 17:08 | PN ---
BHS COWS - Scale Resting Pulse: 0= ID 80 or Below Sweatin= Chills/Flushing Restless Observation: 1= Difficult to Sit Still Pupil Size: 0= Normal to Room Light Bone or Joint Aches: 2= Severe Diffuse Aches Runny Nose/ Eye Tearin= Nasal Congestion GI Upset > 30mins: 0= None Tremor Observation of Outstretched Hands: 0= None Yawning Observation: 1= 1-2x During Session Anxiety or Irritability: 2=Irritable/Anxious Goose Flesh Skin: 3=Piloerection COWS Score: 11 BHS Progress Note (SOAP) Subjective: Interrupted Sleep, Nasal Congestion, Sweating. Objective: PATIENT A & O X 2 (UNCERTAIN ABOUT CURRENT DAY / DATE). IN NO ACUTE DISTRESS. 10/24/18 17:08 Vital Signs Temperature 98.4 F 10/24/18 17:02 Pulse Rate 72 10/24/18 17:02 Respiratory Rate 18 10/24/18 17:02 Blood Pressure 123/70 10/24/18 17:02 O2 Sat by Pulse Oximetry (%) PATIENT REFUSED TO HAVE ADMISSION LABS DRAWN. 10/24/18 17:09 Assessment: 10/24/18 17:10 WITHDRAWAL SYMPTOMS. Plan: CONTINUE DETOX.
[2018-10-24] MEDS: THIAMINE HCL 100 MG TABLET (FP) PO SCH (23:02)
[2018-10-25] MEDS: diazePAM 5 MG TABLET PO PRN ×3 (09:20→22:16)
[2018-10-25] MEDS ORDERED: METHADONE HCL 5 MG TABLET (FOR DETOX USE ONLY) PO ONE (10:00)
[2018-10-25] MEDS: PRENATAL VITAMINS W/ FOLIC ACID TABLET (FP) PO SCH (10:14)
--- NOTE | 2018-10-25 10:18 | PN ---
BHS COWS - Scale Resting Pulse: 0= IN 80 or Below Sweatin= Chills/Flushing Restless Observation: 3= Extraneous Movement Pupil Size: 1= Pupils >than Normal Bone or Joint Aches: 2= Severe Diffuse Aches Runny Nose/ Eye Tearin= Nasal Congestion GI Upset > 30mins: 2= Nausea/Diarrhea Tremor Observation of Outstretched Hands: 2= Slight Tremor Visible Yawning Observation: 1= 1-2x During Session Anxiety or Irritability: 2=Irritable/Anxious Goose Flesh Skin: 0=Smooth Skin COWS Score: 15 BHS Progress Note (SOAP) Subjective: alert,irritable,anxious,interrupted sleep,tremor,pain in the body and back Objective: 10/25/18 10:14 Vital Signs Temperature 97.2 F L 10/25/18 09:05 Pulse Rate 63 10/25/18 09:05 Respiratory Rate 18 10/25/18 09:05 Blood Pressure 109/61 10/25/18 09:05 O2 Sat by Pulse Oximetry (%) Assessment: 10/25/18 10:14 withdrawal symptom Plan: continue detox
[2018-10-25] MEDS: THIAMINE HCL 100 MG TABLET (FP) PO SCH (22:16)
[2018-10-26] MEDS ORDERED: METHADONE HCL 10 MG TABLET (FOR DETOX USE ONLY) PO ONE (10:00)
--- NOTE | 2018-10-26 10:42 | PN ---
S Progress Note (SOAP) Subjective: alert,irritable,anxious,interrupted sleep Objective: 10/26/18 10:41 Vital Signs Temperature 98.1 F 10/26/18 06:24 Pulse Rate 80 10/26/18 06:24 Respiratory Rate 18 10/26/18 06:24 Blood Pressure 95/58 L 10/26/18 06:24 O2 Sat by Pulse Oximetry (%) Assessment: 10/26/18 10:41 withdrawal symptom Plan: continue detox,discharge in am
[2018-10-26] MEDS: PRENATAL VITAMINS W/ FOLIC ACID TABLET (FP) PO SCH (10:47)
[2018-10-26] MEDS: THIAMINE HCL 100 MG TABLET (FP) PO SCH (22:22)
[2018-10-26] MEDS: diazePAM 5 MG TABLET PO PRN (22:24)
[2018-10-27] MEDS ORDERED: METHADONE HCL 5 MG TABLET (FOR DETOX USE ONLY) PO ONE (06:00)
[2018-10-27 08:43] VITALS: BP 120/68; PULSE 94; TEMP 97.7
[2018-10-27] MEDS: PRENATAL VITAMINS W/ FOLIC ACID TABLET (FP) PO SCH (10:34)
--- NOTE | 2018-10-27 11:44 | DS ---
[facility] Detox Discharge Summary Admission Date: 10/23/18 Discharge Date: 10/27/18 - History Present History: Opioid Dependence Additional Comments: pt completed detox protocol for opioid dependence- going to rehab today. d/w pt OUD treatment with methadone or suboxone- pt agrreable for suboxone treatment - Physical Exam Results Vital Signs: Vital Signs Temperature 97.7 F 10/27/18 08:42 Pulse Rate 94 H 10/27/18 08:42 Respiratory Rate 20 10/27/18 08:42 Blood Pressure 120/68 10/27/18 08:42 O2 Sat by Pulse Oximetry (%) - Treatment Hospital Course: Detox Protocol Followed, Detoxed Safely, Responded well, Discharged Condition Good, Rehab Referral Accepted - Medication Discharge Medications: Ambulatory Orders NK [No Known Home Medication] 10/23/18 - AMA Did Patient Leave Against Medical Advice: No
== END 2018-10-27 12:20 | disposition other institution (70) | DRG 773 ==
LOC: YASAS 17:02 → Y6N 20:50
PROVIDERS: ADMIT Surgery; ATTEND Surgery
PROC: HZ2ZZZZ Detoxification Services for Substance Abuse Treatment (ICD-10-PCS; principal; 2018-10-23)
DX: F11.23 Opioid dependence with withdrawal (principal); F14.20 Cocaine dependence, uncomplicated; F17.213 Nicotine dependence, cigarettes, with withdrawal; Z21 Asymptomatic human immunodeficiency virus [HIV] infection status; B18.2 Chronic viral hepatitis C
CPT/HCPCS: 71045-TC-FY

== ENCOUNTER 2018-10-27 12:19 | Inpatient (IN) | payer OTHER ==
[2018-10-27] MEDS ORDERED: P-EPHED 60MG/TRIPROLIDI 2.5MG TABLET PO PRN (15:26)
[2018-10-27] MEDS ORDERED: MAG HYDROX/AL HYDROX/SIMETH 30 ML UNIT-DOSE CUP PO PRN (15:26)
[2018-10-27] MEDS ORDERED: guaiFENesin/D-METHORPHAN HB 10 ML UNIT-DOSE CUPS PO PRN (15:26)
[2018-10-27] MEDS ORDERED: MAGNESIUM HYDROX 2400MG/30ML ORAL SUSPENSION 30 ML CUP PO PRN (15:26)
[2018-10-27] MEDS ORDERED: MAGNESIUM CITRATE 300 ML BOTTLE PO PRN (15:26)
[2018-10-27] MEDS ORDERED: ACETAMINOPHEN 325 MG TABLET (FP) PO PRN (15:26)
[2018-10-27] MEDS ORDERED: LOPERAMIDE HCL 2 MG CAPSULE PO PRN (15:26)
[2018-10-27] MEDS ORDERED: MENTHOL/PHENOL 1 EACH UD MM PRN (15:26)
--- NOTE | 2018-10-27 15:26 | HP ---
[facility] Rehab Assess/Revision - Admission History Admitted to Rehab from: [facility] Date of Admission to Rehab: 10/27/17 - Findings Detox History & Physical reviewed: Yes Concur with findings: Yes Comments/Additional Findings: for rehab as protocol Inpatient Rehab Admission - Rehab Decision to Admit Inpatient rehab admission?: Yes - Initial Determination Are CD services needed?: Yes Free of communicable disease: Yes Not in need of hospitalization: Yes - Rehab Admission Criteria Previous failed treatment: Yes Poor recovery environment: Yes Comorbidities: Yes Lacks judgement: No Patient is meeting Inpatient Rehab admission criteria:: Yes
[2018-10-27] MEDS: hydrOXYzine PAMOATE 50 MG CAPSULE (FP) PO PRN ×2 (16:35→21:14)
[2018-10-27] MEDS: MELATONIN 5 MG TABLETS PO PRN (21:14)
[2018-10-27] MEDS: THIAMINE HCL 100 MG TABLET (FP) PO SCH (21:14)
[2018-10-27] MEDS: IBUPROFEN 400 MG TABLET (FP) PO PRN (21:56)
[2018-10-28 06:50] VITALS: BP 92/62; PULSE 71; TEMP 98.4
[2018-10-28] MEDS: PRENATAL VITAMINS W/ FOLIC ACID TABLET (FP) PO SCH (09:47)
[2018-10-28] MEDS: hydrOXYzine PAMOATE 50 MG CAPSULE (FP) PO PRN (09:48)
[2018-10-28] MEDS: NICOTINE 21 MG/24 HOURS TOPICAL PATCH TD SCH (10:40)
[2018-10-28] MEDS ORDERED: FLU VACCINE QUAD 60 MCG/0.5 ML (MDV 18-19) IM ONE (13:12)
[2018-10-28] MEDS: IBUPROFEN 400 MG TABLET (FP) PO PRN (15:29)
[2018-10-28] MEDS: THIAMINE HCL 100 MG TABLET (FP) PO SCH (21:55)
[2018-10-29] MEDS: hydrOXYzine PAMOATE 50 MG CAPSULE (FP) PO PRN (09:34)
[2018-10-29] MEDS: PRENATAL VITAMINS W/ FOLIC ACID TABLET (FP) PO SCH (09:34)
[2018-10-29] MEDS: NICOTINE 21 MG/24 HOURS TOPICAL PATCH TD SCH (09:34)
[2018-10-29] MEDS: THIAMINE HCL 100 MG TABLET (FP) PO SCH (21:15)
[2018-10-29] MEDS: IBUPROFEN 400 MG TABLET (FP) PO PRN (21:16)
[2018-10-29] MEDS: MELATONIN 5 MG TABLETS PO PRN (21:17)
[2018-10-30] MEDS: PRENATAL VITAMINS W/ FOLIC ACID TABLET (FP) PO SCH (09:52)
[2018-10-30] MEDS: NICOTINE 21 MG/24 HOURS TOPICAL PATCH TD SCH (09:52)
--- NOTE | 2018-10-30 15:00 | PN ---
[facility] Progress Note Note: PT DECLINED TO CONTINUE WITH REHAB FOR PERSONAL REASONS OF FEAR OF LOOSING HIS ACCOMMODATION. PT MET WITH COUNSELOR SLIM CHAVARRIA AND WAS REFERRED TO [facility] FOR AFTERCARE. PT REPORTS HE HAS NO PCP AND GOES TO [facility] WHEN NEEDED FOR MEDICAL CARE. Vital Signs - 24 hr 10/30/18 10/30/18 10/30/18 00:30 03:30 06:43 Respiratory 18 18 18 Rate Vital Signs (72 hours) 10/27/18 10/28/18 10/28/18 15:52 00:30 03:30 Temperature 98.8 F Pulse Rate 82 Respiratory 16 18 18 Rate Blood Pressure 116/77 10/28/18 10/29/18 10/29/18 06:49 00:27 03:30 Temperature 98.4 F Pulse Rate 71 Respiratory 17 16 16 Rate Blood Pressure 92/62 10/29/18 10/30/18 10/30/18 06:55 00:30 03:30 Temperature Pulse Rate Respiratory 16 18 18 Rate Blood Pressure 10/30/18 06:43 Temperature Pulse Rate Respiratory 18 Rate Blood Pressure NAD MEDICALLY STABLE PLAN:FOLLOW UP WITH CD AFTERCARE AT [facility] ON 10/30/18 AT 1:00 PLANNED. GO TO THE NEAREST ER FOR MEDICAL MANAGEMENT IF NEEDED.
== END 2018-10-30 09:15 | disposition left against medical advice (07) | DRG 770 ==
LOC: YASAS 12:19 → Y5N 12:20
PROVIDERS: ADMIT Neuromusculoskeletal Medicine & OMM; ATTEND Neuromusculoskeletal Medicine & OMM
PROC: HZ42ZZZ Group Counseling for Substance Abuse Treatment, Cognitive-Behavioral (ICD-10-PCS; principal; 2018-10-27)
DX: F11.20 Opioid dependence, uncomplicated (principal); F14.20 Cocaine dependence, uncomplicated; F17.213 Nicotine dependence, cigarettes, with withdrawal; Z21 Asymptomatic human immunodeficiency virus [HIV] infection status; B18.2 Chronic viral hepatitis C

== ENCOUNTER 2019-01-20 08:30 | Inpatient (IN) | payer OTHER | END 2019-01-23 13:30 | disposition other institution (70) | LOC: YASAS 08:30 → Y3N 10:15 ==

== ENCOUNTER 2019-01-23 13:26 | Inpatient (IN) | payer OTHER | END 2019-02-06 09:20 | disposition home or self-care (01) | LOC: YASAS 13:26 → Y5N 13:27 ==

== ENCOUNTER 2019-02-19 11:26 | Inpatient (IN) | payer OTHER ==
[2019-02-19 12:18] VITALS: BMI 20.9
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
[2019-02-19] MEDS ORDERED: BISMUTH SUBSALICYLATE 262 MG/15 ML BTL PO PRN (15:03)
[2019-02-19] MEDS ORDERED: MAG HYDROX/AL HYDROX/SIMETH 30 ML UNIT-DOSE CUP PO PRN (15:03)
[2019-02-19] MEDS ORDERED: MAGNESIUM CITRATE 300 ML BOTTLE PO PRN (15:03)
[2019-02-19] MEDS ORDERED: MENTHOL/PHENOL 1 EACH UD MM PRN (15:03)
[2019-02-19] MEDS ORDERED: ACETAMINOPHEN 325 MG TABLET (FP) PO PRN ×2 (15:03)
[2019-02-19] MEDS ORDERED: hydrOXYzine PAMOATE 25 MG CAPSULE (FP) PO PRN (15:03)
[2019-02-19] MEDS ORDERED: IBUPROFEN 400 MG TABLET (FP) PO PRN (15:03)
[2019-02-19] MEDS ORDERED: MAGNESIUM HYDROX 2400MG/30ML ORAL SUSPENSION 30 ML CUP PO PRN (15:03)
[2019-02-19] MEDS ORDERED: cloNIDine HCL 0.1 MG TABLET PO PRN (15:07)
[2019-02-19] MEDS ORDERED: METHADONE HCL 10 MG TABLET (FOR DETOX USE ONLY) PO ONE (15:45)
[2019-02-19] MEDS: BACITRACIN/POLYMYXIN B SULFATE 15 GM TUBE TP SCH (22:17)
[2019-02-19] MEDS: MELATONIN 5 MG TABLETS PO PRN (22:18)
[2019-02-19] MEDS: THIAMINE HCL 100 MG TABLET (FP) PO SCH (22:18)
[2019-02-20] MEDS ORDERED: METHADONE HCL 5 MG TABLET (FOR DETOX USE ONLY) PO ONE (10:00)
[2019-02-20] MEDS: PRENATAL VITAMINS W/ FOLIC ACID TABLET (FP) PO SCH (10:23)
[2019-02-20] MEDS: BACITRACIN/POLYMYXIN B SULFATE 15 GM TUBE TP SCH ×2 (10:23→22:29)
--- NOTE | 2019-02-20 14:58 | PN ---
BHS COWS - Scale Resting Pulse: 1= [place] 81-100 Sweatin= Chills/Flushing Restless Observation: 1= Difficult to Sit Still Pupil Size: 1= Pupils >than Normal Bone or Joint Aches: 1= Mild Discomfort Runny Nose/ Eye Tearin= Nasal Congestion GI Upset > 30mins: 0= None Tremor Observation of Outstretched Hands: 0= None Yawning Observation: 0= None Anxiety or Irritability: 1=Feels Anxious/Irritable Goose Flesh Skin: 0=Smooth Skin COWS Score: 7 BHS Progress Note (SOAP) Subjective: pt states doing well on detox protocol. O: Vital Signs - 24 hr 02/19/19 02/19/19 02/20/19 18:29 21:49 00:30 Temperature 96.2 F L 98.2 F Pulse Rate 65 64 Respiratory 18 17 18 Rate Blood Pressure 143/77 115/67 02/20/19 02/20/19 02/20/19 03:30 05:58 09:46 Temperature 97.1 F L 98.9 F Pulse Rate 61 65 Respiratory 18 16 18 Rate Blood Pressure 117/65 100/51 L 02/20/19 13:37 Temperature 97.5 F L Pulse Rate 62 Respiratory 18 Rate Blood Pressure 115/72 labs pending PE: pt has old midline surgical scar from an operation. Very small area < 1/2 inch that is open- no drainage, no redness/swelling. a/p: continue detox protocol continue clean wound and DSD qd
[2019-02-20] MEDS: THIAMINE HCL 100 MG TABLET (FP) PO SCH (22:29)
[2019-02-21] MEDS ORDERED: METHADONE HCL 10 MG TABLET (FOR DETOX USE ONLY) PO ONE (10:00)
[2019-02-21] MEDS: BACITRACIN/POLYMYXIN B SULFATE 15 GM TUBE TP SCH ×2 (10:22→21:48)
[2019-02-21] MEDS: PRENATAL VITAMINS W/ FOLIC ACID TABLET (FP) PO SCH (10:23)
--- NOTE | 2019-02-21 14:48 | PN ---
BHS COWS - Scale Resting Pulse: 0= [place] 80 or Below Sweatin= Chills/Flushing Restless Observation: 1= Difficult to Sit Still Pupil Size: 0= Normal to Room Light Bone or Joint Aches: 1= Mild Discomfort Runny Nose/ Eye Tearin= None GI Upset > 30mins: 2= Nausea/Diarrhea Tremor Observation of Outstretched Hands: 0= None Yawning Observation: 1= 1-2x During Session Anxiety or Irritability: 2=Irritable/Anxious Goose Flesh Skin: 3=Piloerection COWS Score: 11 BHS Progress Note (SOAP) Subjective: Anxious, Diarrhea, Sweating. Objective: PATIENT A & O X 3, OBSERVED AMBULATING ON UNIT UNASSISTED. IN NO ACUTE DISTRESS. 02/21/19 14:40 Vital Signs Temperature 97.8 F 02/21/19 13:14 Pulse Rate 67 02/21/19 13:14 Respiratory Rate 18 02/21/19 13:14 Blood Pressure 123/80 02/21/19 13:14 O2 Sat by Pulse Oximetry (%) ADMISSION LAB RESULTS PENDING. 02/21/19 14:42 Assessment: 02/21/19 14:42 WITHDRAWAL SYMPTOMS. Plan: CONTINUE DETOX. INCREASE DAILY PO WATER INTAKE. PRN PEPTO-BISMOL PO FOR DIARRHEA. VERTICAL WOUND ON ABDOMEN (CENTRAL) NOTED. SUTURES IN PLACE. NO DISCHARGE NOTED FROM WOUND SITE. NO SIGNS OF INFECTION NOTED. CONTINUE WOUND CARE PREVIOUSLY DIRECTED (CLEAN AREA DAILY WITH NORMAL SALINE , THEN APPLY DRY STERILE DRESSING). PATIENT ADVISED TO GENTLY CLEAN WOUND WITH SOAP AND WATER WHEN TAKING SHOWER AND TO FOLLOW-UP WITH RN CHARGE / SURGEON WHO DID INITIAL PROCEDURE AFTER DISCHARGE FROM DETOX FOR FURTHER MEDICAL EVALUATION OF WOUND SITE AND FOR REMOVAL OF SUTURES. PATIENT VERBALIZED UNDERSTANDING OF RECOMMENDATIONS.
[2019-02-21] MEDS: MELATONIN 5 MG TABLETS PO PRN (21:48)
[2019-02-21] MEDS: THIAMINE HCL 100 MG TABLET (FP) PO SCH (21:48)
[2019-02-22] MEDS ORDERED: METHADONE HCL 5 MG TABLET (FOR DETOX USE ONLY) PO ONE (06:00)
[2019-02-22 10:02] VITALS: BP 98/51; PULSE 63; TEMP 97.9
[2019-02-22] MEDS: BACITRACIN/POLYMYXIN B SULFATE 15 GM TUBE TP SCH (10:30)
[2019-02-22] MEDS: PRENATAL VITAMINS W/ FOLIC ACID TABLET (FP) PO SCH (10:30)
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
== END 2019-02-22 13:05 | disposition other institution (70) | DRG 773 ==
LOC: YASAS 11:26 → Y3N 15:35
PROVIDERS: ADMIT Surgery; ATTEND Surgery
PROC: HZ2ZZZZ Detoxification Services for Substance Abuse Treatment (ICD-10-PCS; principal; 2019-02-19)
DX: F11.23 Opioid dependence with withdrawal (principal); F14.20 Cocaine dependence, uncomplicated; Z21 Asymptomatic human immunodeficiency virus [HIV] infection status; B18.2 Chronic viral hepatitis C; R01.1 Cardiac murmur, unspecified; Z87.11 Personal history of peptic ulcer disease

== ENCOUNTER 2019-02-22 12:29 | Inpatient (IN) | payer OTHER | END 2019-03-07 07:10 | disposition home or self-care (01) | LOC: Y5N 02-24 08:49 → YASAS 12:29 → Y3W 02-24 08:50 ==

== ENCOUNTER 2019-04-15 16:07 | Inpatient (IN) | payer OTHER ==
[2019-04-15 22:58] VITALS: BMI 21.7
--- NOTE | 2019-04-16 00:14 | HP ---
"COWS - Scale Resting Pulse: 1= [place] 81-100 Sweatin=Flushed/Facial Moisture Restless Observation: 1= Difficult to Sit Still Pupil Size: 2= Moderately Dilated (Pupils = 5 mm) Bone or Joint Aches: 0= None Runny Nose/ Eye Tearin= Nasal Congestion GI Upset > 30mins: 0= None Tremor Observation: 2= Slight Tremor Visible Yawning Observation: 0= None Anxiety or Irritability: 2=Irritable/Anxious Goose Flesh Skin: 0=Smooth Skin COWS Score: 11 CIWA Score - Admission Criteria OASAS Guidelines: Admission for Medically Managed Detox: Requires at least one of the followin. CIWA greater than 12 2. Seizures within the past 24 hours 3. Delirium tremens within the past 24 hours 4. Hallucinations within the past 24 hours 5. Acute intervention needed for co occurring medical disorder 6. Acute intervention needed for co occurring psychiatric disorder 7. Severe withdrawal that cannot be handled at a lower level of care (continued vomiting, continued diarrhea, abnormal vital signs) requiring intravenous medication and/or fluids 8. Admission ROS [facility] Chief Complaint: I need Heroin detox. Allergies/Adverse Reactions: Allergies Allergy/AdvReac Type Severity Reaction Status Date / Time No Known Allergies Allergy Verified 04/15/19 22:50 History of Present Illness: 54 yo presents w/ opiate withdrawal symptoms here requesting detox. Heroin use since age 14. States current use is 3-4 bags/day via inhalation UTox + for OPI and MTD. Denies taking methadone or any detox for over 1 month. Hx: OD x 3 , Last 6 months ago: Has Narcan kit Hx: Seizure 35 years ago. Nicotine use since age 14. Now smokes 3 cigs/day Denies alcohol use. Denies other illicit substances PMHx : (L) knee pain - uses a cane for stability and balance: HIV+ (Not on meds) : Hx: + RPR CXR: 10/2018: WNL EK03/30/2018: Sinus Bradycardia MHHx:Depression. Denies SI/. No MH meds. Does not see a MH Provider SHx: Homeless; Unemployed Search Terms: Collins Barkley, 1965 Search Date: 04/16/2019 12:02:09 AM The Drug Utilization Report below displays all of the controlled substance prescriptions, if any, that your patient has filled in the last twelve months. The information displayed on this report is compiled from pharmacy submissions to the Department, and accurately reflects the information as submitted by the pharmacies. This report was requested by: Aracely Jiménez | Reference #: [id number] There are no results for the search terms that you entered. Search Terms: Collins Barkley, 1965 Search Date: 04/16/2019 12:13:24 AM States Searched: [place], [place], [place], [place], [place], [place], [place], [place] The Drug Utilization Report below displays the controlled substance prescriptions, if any, that were dispensed in the indicated state(s). The information displayed on this report is compiled from requests submitted to other states' PMPs, and accurately reflects the information as returned by them. Blank hill indicate data not provided by other state. This report was requested by: Aracely Jiménez | Reference #: [id number] Exam Limitations: No Limitations - Ebola screening Have you traveled outside of the country in the last 21 days: No Have you had contact with anyone from an Ebola affected area: No Have you been sick,other than usual withdrawal symptoms: No (No measles exposure known) Do you have a fever: No - Review of Systems Constitutional: Diaphoresis (Increased facial moisture), Changes in sleep ( Difficulty falling asleep.) EENT: reports: Blurred Vision, Dental Problems (Missing and broken teeth. Chews and swallows ok.) Respiratory: reports: No Symptoms reported Cardiac: reports: No Symptoms Reported GI: reports: No Symptoms Reported : reports: No Symptoms Reported Musculoskeletal: reports: No Symptoms Reported Integumentary: reports: Lesions (picks skin and has open sores) Neuro: reports: Tremors Endocrine: reports: No Symptoms Reported Hematology: reports: Anemia (HIV+) Psychiatric: reports: Judgement Intact, Orientated x3, Agitated, Anxious Patient History - Patient Medical History Hx Anemia: No Hx Asthma: No Hx Chronic Obstructive Pulmonary Disease (COPD): No Hx Cancer: No Hx Cardiac Disorders: No Hx Congestive Heart Failure: No Hx Hypertension: No Hx Hypercholesterolemia: No Hx Pacemaker: No HX Cerebrovascular Accident: No Hx Seizures: No Hx Dementia: No Hx Diabetes: No Hx Gastrointestinal Disorders: No Hx Liver Disease: Yes (Hep C ) Hx Genitourinary Disorders: No Hx Sexually Transmitted Disorders: Yes Hx Renal Disease (ESRD): No Hx Thyroid Disease: No Hx Human Immunodeficiency Virus (HIV): Yes (NOT ON MEDICATION SINCE 1984) Hx Hepatitis C: Yes (No treatment ) Hx Depression: No Hx Suicide Attempt: No Hx Bipolar Disorder: No Hx Schizophrenia: No - Patient Surgical History Past Surgical History: Yes Hx Neurologic Surgery: No Hx Cataract Extraction: No Hx Cardiac Surgery: No Hx Lung Surgery: No Hx Breast Surgery: No Hx Breast Biopsy: No Hx Abdominal Surgery: Yes (peptic ulcer 1994) Hx Appendectomy: No Hx Cholecystectomy: No Hx Genitourinary Surgery: No Hx Section: No Hx Orthopedic Surgery: No Other Surgical History: I&D OF ABSCESS RT. 4TH FINGER. Anesthesia Reaction: No - PPD History Previous Implant?: No Documented Results: Positive w/o proof Implanted On Prior R Admission?: No Results: CXR neg 12/27 PPD to be Administered?: No - Smoking Cessation Smoking history: Current every day smoker Have you smoked in the past 12 months: Yes Aproximately how many cigarettes per day: 3 Cigars Per Day: 0 Hx Chewing Tobacco Use: No Initiated information on smoking cessation: Yes 'Breaking Loose' booklet given: 04/16/19 - Substance & Tx. History Hx Alcohol Use: No Hx Substance Use: Yes Substance Use Type: Cocaine, Heroin Hx Substance Use Treatment: Yes (detox, rehab) - Substances abused Heroin Other (specify): sniff Substance route: Inhalation Frequency: Daily Amount used: 5 bags Age of first use: 15 Date of last use: 04/14/19 Family Disease History - Family Disease History Family Disease History: Diabetes: Father (ALCOHOL), Brother, Other: Father Admission Physical Exam [facility] - Vital Signs Vital Signs: Vital Signs - 24 hr 04/15/19 22:47 Temperature 98.2 F Pulse Rate 77 Respiratory 16 Rate Blood Pressure 115/72 - Physical General Appearance: Yes: Mild Distress, Thin, Tremorous (Increased tremors of hands w/ arm elevation), Irritable, Sweating, Anxious HEENTM: Yes: EOMI (Jerking movement of eyes upon lateral gaze), Hearing grossly Normal, Normocephalic, Normal Voice, MIA (Pupils = 5 mm), Pharynx Normal, Nasal Congestion Respiratory: Yes: Lungs Clear (O2 Sat = 99%), Normal Breath Sounds, No Respiratory Distress Neck: Yes: No masses,lesions,Nodules, Supple Breast: Yes: Breast Exam Deferred Cardiology: Yes: Regular Rhythm, Regular Rate (HR: 82), S1, S2, Murmur Abdominal: Yes: Non Tender, Flat, Soft, Increased Bowel Sounds Genitourinary: Yes: Within Normal Limits Back: Yes: Normal Inspection Musculoskeletal: Yes: full range of Motion, Gait Steady (w/ cane for stability) Extremities: Yes: Normal Capillary Refill, Tremors (Increased tremors of hands w / arm elevation) Neurological: Yes: massage therapist II-XII NML intact (Jerking movement of eyes upon lateral gaze), Fully Oriented, Alert, Motor Strength 5/5, Normal Response Integumentary: Yes: Normal Color, Warm, Diaphoresis (Increased facial moisture) , Track Dhaliwal (Old track dhaliwal), Other (Scattered picked lesions and abrasions on arms and legs) Lymphatic: Yes: Within Normal Limits - Diagnostic (1) History of positive PPD Current Visit: Yes Status: Chronic (2) History of positive serological reaction for syphilis Current Visit: Yes Status: Chronic (3) Dermatillomania Current Visit: Yes Status: Chronic Comment: w/ scattered picked skin lesions (4) Finger deformity Current Visit: Yes Status: Chronic Qualifiers: Laterality: right Qualified Code(s): M20.001 - Unspecified deformity of right finger(s) (5) Nicotine dependence Current Visit: Yes Status: Chronic Qualifiers: Nicotine product type: cigarettes Substance use status: uncomplicated Qualified Code(s): F17.210 - Nicotine dependence, cigarettes, uncomplicated (6) Opioid dependence with withdrawal Current Visit: Yes Status: Acute (7) Weight loss Current Visit: Yes Status: Chronic (8) Ambulates with cane Current Visit: Yes Status: Chronic (9) Dry skin dermatitis Current Visit: Yes Status: Chronic (10) HIV (human immunodeficiency virus infection) Current Visit: Yes Status: Chronic Qualifiers: HIV symptom status: unspecified Qualified Code(s): B20 - Human immunodeficiency virus [HIV] disease Comment: Reports no medication taken for 2 years and no follow up with medical care (11) Murmur, cardiac Current Visit: Yes Status: Chronic Cleared for Admission S - Detox or Rehab [facility] Level of Care: Medically Managed Detox Regimen/Protocol: Methadone Claeared for Rehab Admission: No Breathalyzer - Breathalyzer Breathalyzer: 0 Urine Drug Screen - Test Device Lot number: [id number] Expiration date: 01/08/21 - Control Is test valid?: Yes - Results Drug screen NEGATIVE: No Urine drug screen results: MOP-Opiates, MTD-Methadone Inpatient Rehab Admission - Rehab Decision to Admit Inpatient rehab admission?: No"
[2019-04-16] MEDS ORDERED: MAG HYDROX/AL HYDROX/SIMETH 30 ML UNIT-DOSE CUP PO PRN (00:52)
[2019-04-16] MEDS ORDERED: METHOCARBAMOL 500 MG TABLET PO PRN (00:52)
[2019-04-16] MEDS ORDERED: MAGNESIUM CITRATE 300 ML BOTTLE PO PRN (00:52)
[2019-04-16] MEDS ORDERED: MAGNESIUM HYDROX 2400MG/30ML ORAL SUSPENSION 30 ML CUP PO PRN (00:52)
[2019-04-16] MEDS ORDERED: BISMUTH SUBSALICYLATE 524 MG/30 ML UD PO PRN (00:52)
[2019-04-16] MEDS ORDERED: MENTHOL/PHENOL 1 EACH UD MM PRN (00:52)
[2019-04-16] MEDS ORDERED: ACETAMINOPHEN 325 MG TABLET (FP) PO PRN ×2 (00:52)
[2019-04-16] MEDS ORDERED: IBUPROFEN 400 MG TABLET (FP) PO PRN (00:52)
[2019-04-16] MEDS ORDERED: NALOXONE HCL 0.4 MG/ML VIAL IM PRN (00:56)
[2019-04-16] MEDS ORDERED: cloNIDine HCL 0.1 MG TABLET PO PRN (00:56)
[2019-04-16] MEDS ORDERED: METHADONE HCL 10 MG TABLET PO ONE ×2 (00:57→10:00)
[2019-04-16] MEDS ORDERED: METHADONE HCL 5 MG TABLET (FOR DETOX USE ONLY) PO ONE (10:00)
[2019-04-16] MEDS: PRENATAL VITAMINS W/ FOLIC ACID TABLET (FP) PO SCH (10:42)
--- NOTE | 2019-04-16 10:53 | PN ---
BHS COWS - Scale Resting Pulse: 0= [place] 80 or Below Sweatin= Chills/Flushing Restless Observation: 1= Difficult to Sit Still Pupil Size: 0= Normal to Room Light Bone or Joint Aches: 1= Mild Discomfort Runny Nose/ Eye Tearin= Nasal Congestion GI Upset > 30mins: 1= Stomach Cramp Tremor Observation of Outstretched Hands: 1= Tremor [place], Not Seen Yawning Observation: 1= 1-2x During Session Anxiety or Irritability: 2=Irritable/Anxious Goose Flesh Skin: 0=Smooth Skin COWS Score: 9 BHS Progress Note (SOAP) Subjective: sweats anxiety mild shakes interrupted sleep Objective: 04/16/19 10:52 Vital Signs Temperature 97.9 F 04/16/19 09:29 Pulse Rate 74 04/16/19 09:29 Respiratory Rate 18 04/16/19 09:29 Blood Pressure 114/66 04/16/19 09:29 O2 Sat by Pulse Oximetry (%) labs pending aaox3 ambulating no acute distress Assessment: 04/16/19 10:52 withdrawal sx Plan: continue detox increase fluids pending labs
--- NOTE | 2019-04-16 15:49 | EKG ---
Test Reason : Blood Pressure : / mmHG Vent. Rate : 075 BPM Atrial Rate : 075 BPM P-R Int : 126 ms QRS Dur : 076 ms QT Int : 438 ms P-R-T Axes : 004 061 077 degrees QTc Int : 489 ms NORMAL SINUS RHYTHM MINIMAL VOLTAGE CRITERIA FOR LVH, MAY BE NORMAL VARIANT PROLONGED QT ABNORMAL ECG WHEN COMPARED WITH ECG OF 09-APR-2018 18:09, QT HAS LENGTHENED Confirmed by MD CHARLEY, KAUR ([id number]) on 04/16/2019 3:48:54 PM Referred By: Confirmed By:KAUR WHITEHEAD MD
[2019-04-16] MEDS: THIAMINE HCL 100 MG TABLET (FP) PO SCH (23:00)
[2019-04-17] MEDS ORDERED: METHADONE HCL 5 MG TABLET (FOR DETOX USE ONLY) ONE (09:07)
[2019-04-17] MEDS ORDERED: METHADONE HCL 10 MG TABLET (FOR DETOX USE ONLY) ONE (09:08)
[2019-04-17] MEDS ORDERED: METHADONE (DETOX) 20 MG, METHADONE (DETOX) 5 MG PO ONE (10:00)
[2019-04-17] MEDS: PRENATAL VITAMINS W/ FOLIC ACID TABLET (FP) PO SCH (10:06)
--- NOTE | 2019-04-17 10:18 | PN ---
BHS COWS - Scale Resting Pulse: 0= [place] 80 or Below Sweatin=Flushed/Facial Moisture Restless Observation: 1= Difficult to Sit Still Pupil Size: 0= Normal to Room Light Bone or Joint Aches: 1= Mild Discomfort Runny Nose/ Eye Tearin= None GI Upset > 30mins: 0= None Tremor Observation of Outstretched Hands: 1= Tremor [place], Not Seen Yawning Observation: 1= 1-2x During Session Anxiety or Irritability: 1=Feels Anxious/Irritable Goose Flesh Skin: 0=Smooth Skin COWS Score: 7 BHS Progress Note (SOAP) Subjective: sweats interrupted sleep Objective: 04/17/19 10:18 Vital Signs Temperature 97.5 F L 04/17/19 09:42 Pulse Rate 74 04/17/19 09:42 Respiratory Rate 16 04/17/19 09:42 Blood Pressure 115/68 04/17/19 09:42 O2 Sat by Pulse Oximetry (%) labs ordered; results pending aaox3 ambulating no acute distress Assessment: 04/17/19 10:19 withdrawal sx Plan: continue detox increase fluids pending lab resulta
[2019-04-17] MEDS: THIAMINE HCL 100 MG TABLET (FP) PO SCH (22:30)
[2019-04-17] MEDS: MELATONIN 5 MG TABLETS PO PRN (22:30)
[2019-04-18] MEDS ORDERED: METHADONE HCL 10 MG TABLET (FOR DETOX USE ONLY) PO ONE (10:00)
[2019-04-18] MEDS: PRENATAL VITAMINS W/ FOLIC ACID TABLET (FP) PO SCH (10:09)
[2019-04-18 10:35] LABS: HEMATOCRIT 25.3 % (35.4-49); HEMOGLOBIN 8.7 GM/dL (11.7-16.9); MCH 30.4 pg (25.7-33.7); MCHC 34.3 g/dl (32.0-35.9); MEAN CELL VOLUME 88.7 fl (80-96); MEAN PLT VOLUME 9.7 fl (7.5-11.1); PLATELET COUNT 194 K/MM3 (134-434); RBC 2.85 M/mm3 (4.00-5.60); RDW 15.8 % (11.9-15.9)
[2019-04-18 10:42] LABS: BILIRUBIN,TOTAL 0.2 mg/dL (0.2-1); BLOOD UREA NITROGEN 12.7 mg/dL (7-18); CALCIUM 8.5 mg/dL (8.5-10.1); CREATININE 0.6 mg/dL (0.55-1.3); POTASSIUM 4.3 mmol/L (3.5-5.1)
[2019-04-18 11:23] LABS: WHITE BLOOD COUNT 1.9 K/mm3 (4.0-10.0)
[2019-04-18 11:46] LABS: RPR REACTIVE 1:1 (NONREACTIVE)
[2019-04-18 11:47] LABS: TREPONEMA ANTIBODY PREVIOUSLY REACTIVE (NONREACTIVE)
--- NOTE | 2019-04-18 11:57 | PN ---
BHS COWS - Scale Resting Pulse: 0= [place] 80 or Below Sweatin= Chills/Flushing Restless Observation: 0= Sits Still Pupil Size: 0= Normal to Room Light Bone or Joint Aches: 1= Mild Discomfort Runny Nose/ Eye Tearin= None GI Upset > 30mins: 0= None Tremor Observation of Outstretched Hands: 1= Tremor [place], Not Seen Yawning Observation: 1= 1-2x During Session Anxiety or Irritability: 1=Feels Anxious/Irritable Goose Flesh Skin: 0=Smooth Skin COWS Score: 5 BHS Progress Note (SOAP) Subjective: feeling fine little sweats Objective: 04/18/19 11:55 Vital Signs Temperature 97.7 F 04/18/19 09:27 Pulse Rate 70 04/18/19 09:27 Respiratory Rate 18 04/18/19 09:27 Blood Pressure 111/66 04/18/19 09:27 O2 Sat by Pulse Oximetry (%) Laboratory Tests 04/18/19 04/18/19 04/18/19 07:00 07:00 07:00 WBC 1.9 L* RBC 2.85 L Hgb 8.7 L Hct 25.3 L MCV 88.7 MCH 30.4 MCHC 34.3 RDW 15.8 D Plt Count 194 D MPV 9.7 D Sodium 130 L Potassium 4.3 Chloride 97 L Carbon Dioxide 28 Anion Gap 5 L BUN 12.7 Creatinine 0.6 Est GFR (CKD-EPI)AfAm 132.11 Est GFR (CKD-EPI)NonAf 113.99 Random Glucose 90 Calcium 8.5 Total Bilirubin 0.2 AST 31 ALT 29 Alkaline Phosphatase 67 Total Protein 8.0 Albumin 3.0 L RPR Titer Reactive 1:1 H T.pallidum Ab (MHA) Previously reactive labs noted low wbc and H:pt is asymptomatic iron sulfate tid repeat labs aaox3 ambulating no acute distress Assessment: 04/18/19 11:56 mild withdrawal sx Plan: continue detox increase fluids repeat labs
[2019-04-18] MEDS: FERROUS SO4 325 MG TABLET (FP) PO SCH ×2 (13:00→17:50)
[2019-04-18] MEDS: BACITRACIN 15 GM TUBE TOPICAL OINTMENT TP SCH (13:00)
[2019-04-18] MEDS: THIAMINE HCL 100 MG TABLET (FP) PO SCH (23:49)
[2019-04-19] MEDS ORDERED: METHADONE HCL 5 MG TABLET (FOR DETOX USE ONLY) ONE (08:44)
[2019-04-19] MEDS ORDERED: METHADONE HCL 10 MG TABLET (FOR DETOX USE ONLY) ONE (08:45)
[2019-04-19] MEDS ORDERED: METHADONE (DETOX) 10 MG, METHADONE (DETOX) 5 MG PO ONE (10:00)
[2019-04-19] MEDS: PRENATAL VITAMINS W/ FOLIC ACID TABLET (FP) PO SCH (10:21)
[2019-04-19] MEDS: FERROUS SO4 325 MG TABLET (FP) PO SCH ×3 (10:22→17:58)
[2019-04-19] MEDS: BACITRACIN 15 GM TUBE TOPICAL OINTMENT TP SCH (10:24)
--- NOTE | 2019-04-19 10:34 | PN ---
[facility] COWS - Scale Resting Pulse: 0= NH 80 or Below Sweatin= No chills or Flushing Restless Observation: 0= Sits Still Pupil Size: 0= Normal to Room Light Bone or Joint Aches: 1= Mild Discomfort Runny Nose/ Eye Tearin= None GI Upset > 30mins: 0= None Tremor Observation of Outstretched Hands: 1= Tremor [place], Not Seen Yawning Observation: 1= 1-2x During Session Anxiety or Irritability: 1=Feels Anxious/Irritable Goose Flesh Skin: 0=Smooth Skin COWS Score: 4 BHS Progress Note (SOAP) Subjective: anxiety Objective: 04/19/19 10:49 Vital Signs Temperature 98.4 F 04/19/19 10:05 Pulse Rate 72 04/19/19 10:05 Respiratory Rate 18 04/19/19 10:05 Blood Pressure 108/67 04/19/19 10:05 O2 Sat by Pulse Oximetry (%) Laboratory Tests 04/18/19 04/18/19 04/18/19 07:00 07:00 07:00 WBC 1.9 L* RBC 2.85 L Hgb 8.7 L Hct 25.3 L MCV 88.7 MCH 30.4 MCHC 34.3 RDW 15.8 D Plt Count 194 D MPV 9.7 D Sodium 130 L Potassium 4.3 Chloride 97 L Carbon Dioxide 28 Anion Gap 5 L BUN 12.7 Creatinine 0.6 Est GFR (CKD-EPI)AfAm 132.11 Est GFR (CKD-EPI)NonAf 113.99 Random Glucose 90 Calcium 8.5 Total Bilirubin 0.2 AST 31 ALT 29 Alkaline Phosphatase 67 Total Protein 8.0 Albumin 3.0 L RPR Titer Reactive 1:1 H T.pallidum Ab (MHA) Previously reactive pt was ordered a repeat for his labs cbc; pt refused to have his blood drawn. pt refused to state why just said I dont want any more blood drawn. [id number] ambulating no acute distress Assessment: 04/19/19 10:50 mild withdrawal sx Plan: continue detox increase fluids
[2019-04-19] MEDS: THIAMINE HCL 100 MG TABLET (FP) PO SCH (22:11)
[2019-04-19] MEDS: MELATONIN 5 MG TABLETS PO PRN (22:11)
[2019-04-20] MEDS: FERROUS SO4 325 MG TABLET (FP) PO SCH ×3 (07:06→19:14)
[2019-04-20] MEDS ORDERED: METHADONE HCL 10 MG TABLET (FOR DETOX USE ONLY) PO ONE (10:00)
[2019-04-20] MEDS: BACITRACIN 15 GM TUBE TOPICAL OINTMENT TP SCH (11:22)
[2019-04-20] MEDS: PRENATAL VITAMINS W/ FOLIC ACID TABLET (FP) PO SCH (11:22)
[2019-04-20 20:50] VITALS: BP 119/65; PULSE 78; TEMP 97.5
[2019-04-21] MEDS: THIAMINE HCL 100 MG TABLET (FP) PO SCH (00:49)
[2019-04-21] MEDS ORDERED: METHADONE HCL 5 MG TABLET (FOR DETOX USE ONLY) PO ONE (06:00)
[2019-04-21] MEDS: FERROUS SO4 325 MG TABLET (FP) PO SCH ×2 (07:37→11:58)
[2019-04-21] MEDS: BACITRACIN 15 GM TUBE TOPICAL OINTMENT TP SCH (11:21)
[2019-04-21] MEDS: PRENATAL VITAMINS W/ FOLIC ACID TABLET (FP) PO SCH (11:21)
--- NOTE | 2019-04-21 15:44 | DS ---
[facility] Detox Discharge Summary Admission Date: 04/16/19 Discharge Date: 04/21/19 - History Present History: Opioid Dependence Additional Comments: Pt completed detox successfully and discharged safely in stable condition. Patient instructed to follow up with his PCP within 1-2 weeks. Pertinent Past History: Left knee pain, chronic (use cane to ambulate) HIV disease Hepatitis C (not treated) Nicotine dependence History of seizure - Physical Exam Results Vital Signs: Vital Signs Temperature 97.5 F L 04/20/19 20:49 Pulse Rate 78 04/20/19 20:49 Respiratory Rate 18 04/21/19 03:30 Blood Pressure 119/65 04/20/19 20:49 O2 Sat by Pulse Oximetry (%) Pertinent Admission Physical Exam Findings: Withdrawal sxs Laboratory Tests 04/18/19 04/18/19 04/18/19 07:00 07:00 07:00 WBC 1.9 L* RBC 2.85 L Hgb 8.7 L Hct 25.3 L MCV 88.7 MCH 30.4 MCHC 34.3 RDW 15.8 D Plt Count 194 D MPV 9.7 D Sodium 130 L Potassium 4.3 Chloride 97 L Carbon Dioxide 28 Anion Gap 5 L BUN 12.7 Creatinine 0.6 Est GFR (CKD-EPI)AfAm 132.11 Est GFR (CKD-EPI)NonAf 113.99 Random Glucose 90 Calcium 8.5 Total Bilirubin 0.2 AST 31 ALT 29 Alkaline Phosphatase 67 Total Protein 8.0 Albumin 3.0 L RPR Titer Reactive 1:1 H T.pallidum Ab (MHA) Previously reactive Labs reviewed: wbc 1.9 (most likely due to HIV), Na 130, RPR reactive (h/o syphilis); follow up with PCP for further management of abnormal labs and all medical problems. - Treatment Hospital Course: Detox Protocol Followed, Detoxed Safely, Responded well, Discharged Condition Good - Medication Discharge Medications: Ambulatory Orders NK [No Known Home Medication] 02/19/19 - Diagnosis (1) History of seizure Status: Chronic (2) Left knee pain Status: Chronic (3) Hyponatremia Status: Acute (4) Leukopenia Status: Acute (5) Opioid dependence with withdrawal Status: Acute (6) Ambulates with cane Status: Chronic (7) HIV (human immunodeficiency virus infection) Status: Chronic Qualifiers: HIV symptom status: unspecified Qualified Code(s): B20 - Human immunodeficiency virus [HIV] disease (8) Hepatitis C Status: Chronic Qualifiers: Viral hepatitis chronicity: chronic Hepatic coma status: without hepatic coma Qualified Code(s): B18.2 - Chronic viral hepatitis C (9) History of positive serological reaction for syphilis Status: Chronic (10) Nicotine dependence Status: Chronic Qualifiers: Nicotine product type: cigarettes Substance use status: uncomplicated Qualified Code(s): F17.210 - Nicotine dependence, cigarettes, uncomplicated - AMA Did Patient Leave Against Medical Advice: No (Follow up with PCP within 1-2 weeks post discharge)
== END 2019-04-21 12:15 | disposition home or self-care (01) | DRG 773 ==
LOC: YASAS 16:07 → Y6N 04-16 00:03
PROVIDERS: ADMIT Surgery; ATTEND Surgery
PROC: HZ2ZZZZ Detoxification Services for Substance Abuse Treatment (ICD-10-PCS; principal; 2019-04-16)
DX: F11.23 Opioid dependence with withdrawal (principal); F17.210 Nicotine dependence, cigarettes, uncomplicated; Z21 Asymptomatic human immunodeficiency virus [HIV] infection status; L85.3 Xerosis cutis; R63.4 Abnormal weight loss; D72.819 Decreased white blood cell count, unspecified; E87.1 Hypo-osmolality and hyponatremia; B18.2 Chronic viral hepatitis C; R00.1 Bradycardia, unspecified; R01.1 Cardiac murmur, unspecified; L98.1 Factitial dermatitis; M20.001 Unspecified deformity of right finger(s); R26.2 Difficulty in walking, not elsewhere classified; Z99.89 Dependence on other enabling machines and devices; Z87.438 Personal history of other diseases of male genital organs
CPT/HCPCS: 36415; 80053; 85027; 86593; 86780; 93005; 93010

== ENCOUNTER 2019-05-24 20:32 | Inpatient (IN) | payer OTHER ==
--- NOTE | 2019-05-24 21:02 | PDOC ---
History of Present Illness - General Chief Complaint: SIRS, Suspected/Possible Stated Complaint: FEVER Time Seen by Provider: 05/24/19 20:50 History Source: Patient Exam Limitations: No Limitations - History of Present Illness Initial Comments: 05/24/19 22:38 54 yo M with a hx of HIV (dx 30 days ago per records, but no objective data and patient not on medications), Hepatitis C (not on medications), and polysubstance abuse (most notably heroin via nasal inhalation; uses 3 bags daily over the course of the month with commencement at age [age] years old; hx of IV usage in the past) presents to the emergency department from [facility] with evaluation of fever. Patient is a poor historian, mostly uncooperative in answering questions, and is noted to be homeless. He denies the following: coughs, SOB, nausea, vomiting, abdominal pain, chest pain, dysuria, hematuria, diarrhea, and hematochezia. He was noted to have a 100.2 F at [facility]. Endorses fever. Would not give a timeline of symptoms. Denies taking medications. Allergies: NKDA Social: Denies tobacco use. 05/25/19 00:25 Past History - Past Medical History Allergies/Adverse Reactions: Allergies Allergy/AdvReac Type Severity Reaction Status Date / Time No Known Allergies Allergy Verified 05/24/19 20:35 Home Medications: Ambulatory Orders NK [No Known Home Medication] 02/19/19 Anemia: No Asthma: No Cancer: No Cardiac Disorders: Yes CVA: No COPD: No CHF: No Dementia: No Diabetes: No GI Disorders: No Disorders: No HTN: No Hypercholesterolemia: No Kidney Stones: No Liver Disease: Yes (Hep C ) Seizures: No Thyroid Disease: No - Surgical History Abdominal Surgery: Yes (peptic ulcer 1994) Appendectomy: No Cardiac Surgery: No Cholecystectomy: No Lung Surgery: No Neurologic Surgery: No Orthopedic Surgery: No - Reproductive History Testicular Surgery: No - Suicide/Smoking/Psychosocial Hx Smoking History: Unknown if ever smoked Have you smoked in the past 12 months: No Number of Cigarettes Smoked Daily: 3 Cigars Per Day: 0 Information on smoking cessation initiated: No 'Breaking Loose' booklet given: 04/16/19 Hx Alcohol Use: No Drug/Substance Use Hx: No Substance Use Type: Cocaine, Heroin Hx Substance Use Treatment: No Review of Systems - Review of Systems Able to Perform ROS?: Yes Is the patient limited [place] proficient: No Constitutional: Yes: Fever. No: Chills, Diaphoresis, Weakness HEENTM: No: Eye Pain, Ear Pain, Nose Pain, Throat Pain, Mouth Pain Respiratory: No: Cough, Shortness of Breath, Hemoptysis Cardiac (ROS): No: Chest Pain, Lightheadedness, Palpitations, Syncope, Chest Tightness ABD/GI: No: Constipated, Diarrhea, Nausea, Rectal Bleeding, Vomiting, Tarry Stools : No: Burning, Dysuria, Hematuria, Incontinence, Lesions Musculoskeletal: No: Back Pain, Joint Pain, Neck Pain Integumentary: No: Bruising, Erythema, Rash, Sweating Neurological: No: Headache, Numbness Psychiatric: No: Change in Appetite Endocrine: No: Unexplained Weight Gain Hematologic/Lymphatic: No: Anemia *Physical Exam - Vital Signs Last Vital Signs Temp Pulse Resp BP Pulse Ox 101.0 F H 102 H 20 146/78 99 05/24/19 20:35 05/24/19 20:35 05/24/19 20:35 05/24/19 20:35 05/24/19 20:35 - Physical Exam General Appearance: Yes: Nourished, Disheveled. No: Intoxicated HEENT: positive: EOMI, MIA, Hearing Grossly Normal. negative: Pharynx Normal ( thrush noted in the oropharynx), Pale Conjunctivae, Scleral Icterus (R), Scleral Icterus (L), Muffled/Hoarse voice, Pharyngeal Erythema, Tonsillar Exudate, Tonsillar Erythema, Excessive drooling Neck: positive: Trachea midline, Supple. negative: Tender, Tender lateral, Tender midline Respiratory/Chest: positive: Lungs Clear, Normal Breath Sounds. negative: Chest Tender, Respiratory Distress, Accessory Muscle Use Cardiovascular: positive: Regular Rhythm, S1, S2, Tachycardia. negative: Systolic Murmur Gastrointestinal/Abdominal: positive: Normal Bowel Sounds, Flat, Soft, Other ( noted to have significant scars on the abdomen with a nylon suture intact at midline above navel.). negative: Tender Lymphatic: negative: Adenopathy Musculoskeletal: positive: Normal Inspection. negative: CVA Tenderness, Vertebral Tenderness Extremity: positive: Normal Capillary Refill, Other (dirt noted on the feet bilaterally. 1+ pitting edema bilaterally) Integumentary: positive: Normal Color, Dry, Warm Neurologic: positive: Alert, Depressed Affect. negative: Fully Oriented ( oriented to self and place), EOM Palsy ED Treatment Course - LABORATORY CBC & Chemistry Diagram: 05/24/19 22:40 05/24/19 22:40 Medical Decision Making - Medical Decision Making 54 yo M with a hx of HIV (dx 30 days ago per records, but no objective data and patient not on medications), Hepatitis C (not on medications), and polysubstance abuse (most notably heroin via nasal inhalation; uses 3 bags daily over the course of the month with commencement at age [age] years old; hx of IV usage in the past) presents to the emergency department from [facility] with evaluation of fever. Initial vitals Initial Vital Signs Temp Pulse Resp BP Pulse Ox 101.0 F H 102 H 20 146/78 99 05/24/19 20:35 05/24/19 20:35 05/24/19 20:35 05/24/19 20:35 05/24/19 20:35 Work up: ddx: sepsis with unknown etiology 2/2 uncooperative with history taking. broad ddx Laboratory Tests 05/24/19 05/24/19 05/24/19 22:03 22:40 22:40 WBC 2.9 L RBC 2.87 L Hgb 8.5 L Hct 24.7 L MCV 86.0 MCH 29.6 MCHC 34.4 RDW 15.8 Plt Count 136 D MPV 8.5 D Absolute Neuts (auto) 2.4 Neutrophils % 80.5 Neutrophils % (Manual) 74.6 Band Neutrophils % 0.0 Lymphocytes % 9.5 Lymphocytes % (Manual) 11.8 Monocytes % 6.6 Monocytes % (Manual) 2 L Eosinophils % 2.6 Eosinophils % (Manual) 4.5 Basophils % 0.8 Basophils % (Manual) 0.9 Myelocytes % (Man) 0 Promyelocytes % (Man) 0 Blast Cells % (Manual) 0 Nucleated RBC % 0 Metamyelocytes 6 H Hypochromia 0 Platelet Estimate Normal Polychromasia 0 Poikilocytosis 2+ Anisocytosis 2+ Microcytosis 2+ Macrocytosis 0 Ovalocytes 1+ PT with INR INR PTT (Actin FS) VBG pH POC VBG pCO2 POC VBG pO2 VBG HCO3 VBG O2 Sat ([place]) VBG Base Excess Sodium 133 L Potassium 3.5 Chloride 100 Carbon Dioxide 27 Anion Gap 6 L BUN 9.3 Creatinine 0.6 Est GFR (CKD-EPI)AfAm 132.11 Est GFR (CKD-EPI)NonAf 113.99 Random Glucose 97 Lactic Acid Calcium 8.0 L Total Bilirubin 0.5 AST 29 ALT 18 Alkaline Phosphatase 78 Ammonia Creatine Kinase 138 Troponin I < 0.02 Total Protein 7.6 Albumin 2.8 L Urine Color Urine Appearance Urine pH Ur Specific [place] Urine Protein Urine Glucose (UA) Urine Ketones Urine Blood Urine Nitrite Urine Bilirubin Urine Urobilinogen Ur Leukocyte Esterase Urine WBC (Auto) Urine RBC (Auto) Urine Casts (Auto) U Epithel Cells (Auto) Urine Bacteria (Auto) Blood Type Antibody Screen 05/24/19 05/24/19 05/24/19 22:40 22:40 22:40 WBC RBC Hgb Hct MCV MCH MCHC RDW Plt Count MPV Absolute Neuts (auto) Neutrophils % Neutrophils % (Manual) Band Neutrophils % Lymphocytes % Lymphocytes % (Manual) Monocytes % Monocytes % (Manual) Eosinophils % Eosinophils % (Manual) Basophils % Basophils % (Manual) Myelocytes % (Man) Promyelocytes % (Man) Blast Cells % (Manual) Nucleated RBC % Metamyelocytes Hypochromia Platelet Estimate Polychromasia Poikilocytosis Anisocytosis Microcytosis Macrocytosis Ovalocytes PT with INR 13.20 H INR 1.12 H PTT (Actin FS) 32.6 VBG pH 7.45 H POC VBG pCO2 39.9 POC VBG pO2 < 49 H VBG HCO3 27.5 VBG O2 Sat ([place]za) 80.2 H VBG Base Excess 3.8 H Sodium Potassium Chloride Carbon Dioxide Anion Gap BUN Creatinine Est GFR (CKD-EPI)AfAm Est GFR (CKD-EPI)NonAf Random Glucose Lactic Acid 0.8 Calcium Total Bilirubin AST ALT Alkaline Phosphatase Ammonia Creatine Kinase Troponin I Total Protein Albumin Urine Color Urine Appearance Urine pH Ur Specific [place] Urine Protein Urine Glucose (UA) Urine Ketones Urine Blood Urine Nitrite Urine Bilirubin Urine Urobilinogen Ur Leukocyte Esterase Urine WBC (Auto) Urine RBC (Auto) Urine Casts (Auto) U Epithel Cells (Auto) Urine Bacteria (Auto) Blood Type Antibody Screen 05/24/19 05/24/19 05/24/19 22:40 22:40 22:45 WBC RBC Hgb Hct MCV MCH MCHC RDW Plt Count MPV Absolute Neuts (auto) Neutrophils % Neutrophils % (Manual) Band Neutrophils % Lymphocytes % Lymphocytes % (Manual) Monocytes % Monocytes % (Manual) Eosinophils % Eosinophils % (Manual) Basophils % Basophils % (Manual) Myelocytes % (Man) Promyelocytes % (Man) Blast Cells % (Manual) Nucleated RBC % Metamyelocytes Hypochromia Platelet Estimate Polychromasia Poikilocytosis Anisocytosis Microcytosis Macrocytosis Ovalocytes PT with INR INR PTT (Actin FS) VBG pH POC VBG pCO2 POC VBG pO2 VBG HCO3 VBG O2 Sat ([place]za) VBG Base Excess Sodium Potassium Chloride Carbon Dioxide Anion Gap BUN Creatinine Est GFR (CKD-EPI)AfAm Est GFR (CKD-EPI)NonAf Random Glucose Lactic Acid Calcium Total Bilirubin AST ALT Alkaline Phosphatase Ammonia 30.80 Creatine Kinase Troponin I Total Protein Albumin Urine Color Yellow Urine Appearance Clear Urine pH 6.5 Ur Specific [place] 1.019 Urine Protein 1+ H Urine Glucose (UA) Negative Urine Ketones Negative Urine Blood Negative Urine Nitrite Negative Urine Bilirubin Negative Urine Urobilinogen 1.0 Ur Leukocyte Esterase Trace Urine WBC (Auto) 4 Urine RBC (Auto) 2 Urine Casts (Auto) 1 U Epithel Cells (Auto) 2.5 Urine Bacteria (Auto) 422.4 Blood Type A POSITIVE Antibody Screen Negative leukopenia noted with hyperammonia. Patient noted to have UTI on UA. Patient was febrile presenting to the ED. Pending HIV test. Patient noted to have thrush on examination. Concerns exist for infection in setting of HIV without medications with leukopenia. Will start zosyn. given 30 cc/kg bolus. EKG shows 84 bp, WA is 118 ms, QRS is 78 ms, and QTc is 467 ms. NSR without ROSE or ST depressions. TWI V2. Patient endorsed to night team. 05/25/19 00:33 *DC/Admit/Observation/Transfer Diagnosis at time of Disposition: Sepsis - Referrals - Patient Instructions - Post Discharge Activity
[2019-05-24] MEDS ORDERED: SODIUM CHLORIDE 2,654 ML IV ONE (21:04)
[2019-05-24] MEDS ORDERED: ACETAMINOPHEN 1000 MG/100 ML VIAL (NON FORMULARY) IVPB ONE (21:07)
[2019-05-24] MEDS ORDERED: ACETAMINOPHEN INJECTION 100 ML IVPB ONE (22:26)
[2019-05-24 23:11] LABS: VENOUS PC02 39.9 mmHg (38-52); VENOUS PH 7.45 (7.31-7.41)
[2019-05-24 23:12] LABS: BASO % 0.8 % (0-2.0); EOS % 2.6 % (0-4.5); HEMATOCRIT 24.7 % (35.4-49); HEMOGLOBIN 8.5 GM/dL (11.7-16.9); LYMPH % 9.5 % (8-40); MCH 29.6 pg (25.7-33.7); MCHC 34.4 g/dl (32.0-35.9); MEAN PLT VOLUME 8.5 fl (7.5-11.1); MONO % 6.6 % (3.8-10.2); NEUT % 80.5 % (42.8-82.8); PLATELET COUNT 136 K/MM3 (134-434); RBC 2.87 M/mm3 (4.00-5.60); RDW 15.8 % (11.9-15.9); WHITE BLOOD COUNT 2.9 K/mm3 (4.0-10.0)
[2019-05-24 23:13] LABS: VENOUS PO2 < 49 mmHg (28-48)
[2019-05-24 23:14] LABS: EPI CELLS 2.5 /HPF (0-5/HPF); HYALINE CASTS 1 /lpf (0-8); PH,URINE 6.5 (5.0-8.0); URINE APPEARANCE CLEAR; URINE BACTERIA 422.4 /hpf (NEGATIVE); URINE BILIRUBIN NEGATIVE (NEGATIVE); URINE COLOR YELLOW; URINE GLUCOSE (UA) NEGATIVE (NEGATIVE); URINE KETONE NEGATIVE (NEGATIVE); URINE LEUK ESTERASE TRACE (NEGATIVE); URINE NITRITE NEGATIVE (NEGATIVE); URINE PROTEIN 1+ (NEGATIVE); URINE RBC 2 /hpf (0-4); URINE WBC 4 /hpf (0-5)
[2019-05-24 23:21] LABS: INR 1.12 (0.83-1.09); PROTHROMBIN TIME (PATIENT) 13.2 SEC (9.7-13.0)
[2019-05-24 23:24] LABS: ACTIVATED PTT 32.6 SECONDS (25.2-36.5)
[2019-05-24 23:33] LABS: ALBUMIN 2.8 g/dl (3.4-5.0); BILIRUBIN,TOTAL 0.5 mg/dL (0.2-1); BLOOD UREA NITROGEN 9.3 mg/dL (7-18); CREATININE 0.6 mg/dL (0.55-1.3); POTASSIUM 3.5 mmol/L (3.5-5.1); TOT PROT 7.6 g/dl (6.4-8.2)
[2019-05-24] MEDS ORDERED: PIPERACILLIN/TAZOB 3.375 GM 3.375 GM in DEXTROSE 5%-WATER - 50 ML IVPB ONE (23:44)
[2019-05-24] MEDS ORDERED: PIPERACILLIN/TAZOB 3.375 GM 3.375 GM/50 ML BAG IVPB ONE (23:50)
[2019-05-25 00:14] LABS: ANISOCYTOSIS 2+; MACROCYTOSIS 0; OVALOCYTE 1+; PLATELET ESTIMATE NORMAL
--- NOTE | 2019-05-25 00:50 | PDOC ---
Attending Attestation - Resident Resident Name: Cheko Batres - HPI HPI: 05/25/19 01:36 Pt presents to the ED after sent in from [facility] for fever and thrush. Patient has a history of recently diagnosed HIV. Patient is febrile in the ED, but denies other complaints. He is a poor historian. - Physicial Exam PE: 05/25/19 02:20 Agree with resident exam. Patient has his eyes closed but responds to questions. Lungs are clear. Heart regular rate and rhythm. Abdomen soft, non tender non distended. - Medical Decision Making 05/25/19 02:22 Pt presents to the ED after sent in for fever and thrush. Febrile in the ED. labs show evidence of UTI. Will admit to medicine.
[2019-05-25] MEDS ORDERED: SODIUM CHLORIDE 1,000 ML IV STA (01:18)
--- NOTE | 2019-05-25 01:48 | PN ---
Teaching Attending Note Name of Resident: Ed Gomez ATTENDING PHYSICIAN STATEMENT I saw and evaluated the patient. I reviewed the resident's note and discussed the case with the resident. I agree with the resident's findings and plan as documented. SUBJECTIVE: Patient is a 54 year old homeless man with a PMH of HIV disease (diagnosed 30 days ago per records - patient insists he has had HIV disease for over 10 years ; not on HAART), Hepatitis C (not on medications), and Polysubstance abuse ( cocaine/heroin; inhales 3 bags of heroin daily over the course of the month with commencement at age [age] years old; history of IV usage in the past) presents to the ER from [facility] with fever. Patient is a poor historian, mostly uncooperative in answering questions. He has frequency and dysuria. He denies cough, SOB, nausea, vomiting, abdominal pain, chest pain, hematuria, diarrhea, and hematochezia. He was noted to have a 100.2 F at [facility]. Would not give a timeline of symptoms. Denies taking any medications. OBJECTIVE: Alert Vital Signs Period Temp Pulse Resp BP Sys/[place]ford Pulse Ox Last 24 Hr 98.5 F-101.0 F 78-102 20-20 93-146/53-78 99-100 HEENT: No Jaundice, eye redness or discharge, PERRLA, EOMI. Oral thrush; Normocephalic, atraumatic. External ears are normal and hearing is grossly intact. No nasal discharge. Neck: Supple, nontender. No palpable adenopathy or thyromegaly. No JVD Chest: Good effort. Clear to auscultation and percussion. Heart: Regular. No S3, rub or murmur Abdomen: Not distended, soft, nontender and no HSM. No rebound or guarding. Normal bowel sounds. Ext: Peripheral pulses intact. No leg edema. Skin: Warm and dry. No petechiae, rash or ecchymosis. Neuro: Alert. Oriented x3. CN 2-12 grossly intact. Sensation grossly intact in all four extremities and DTR are symmetric. Psych: Appropriate mood and affect. Good insight. Current Medications Generic Name Dose Route Start Last Admin Trade Name Freq PRN Reason Stop Dose Admin Sodium Chloride 1,000 mls @ 1,000 mls/hr 05/25/19 01:18 05/25/19 01:27 Normal Saline - IV 05/25/19 02:17 1,000 mls/hr ASDIR STA Administration Home Medications Medication Instructions Recorded NK [No Known Home Medication] 02/19/19 Abnormal Lab Results 05/24/19 05/24/19 05/24/19 22:40 22:40 22:40 WBC 2.9 L RBC 2.87 L Hgb 8.5 L Hct 24.7 L Monocytes % (Manual) 2 L Metamyelocytes 6 H PT with INR 13.20 H INR 1.12 H VBG pH POC VBG pO2 VBG O2 Sat (Mendoza) VBG Base Excess Sodium 133 L Anion Gap 6 L Calcium 8.0 L Albumin 2.8 L Urine Protein 05/24/19 05/24/19 22:40 22:45 WBC RBC Hgb Hct Monocytes % (Manual) Metamyelocytes PT with INR INR VBG pH 7.45 H POC VBG pO2 < 49 H VBG O2 Sat (Mendoza) 80.2 H VBG Base Excess 3.8 H Sodium Anion Gap Calcium Albumin Urine Protein 1+ H ASSESSMENT AND PLAN: 1. Sepsis due to ?UTI - He has bacteriuria, only 4 WBCs in the urine and trace leukocyte esterase, but he has dysuria and frequency. No acute abnormality on CXR. Has leukopenia with history of IVDA and bouts of hypotension in the ER. Will treat with IV NS, IV vancomycin and zosyn - if blood culture is positive, will get ECHO to rule out vegetations. Treat with Nystatin suspension - swish and swallow. Contact [facility] during the day to get more information about HIV diagnosis. Consult ID and initiate HAART. Will continue comprehensive care of all his comorbid conditions. 2. Hypoalbuminemia - Possibly due to combined effects of malnutrition and inflammation associated with comorbid chronic conditions. Will ensure adequate dietary protein intake and also consult railroad commissioner. 3. Tobacco Use Counseled on risks associated with tobacco use. We will provide patient all the necessary assistance to facilitate smoking cessation and prescribe Nicotine patch. 4. Anemia - Likely multifactorial. Will do basic anemia work up including serial stool guaiacs, reticulocyte count and iron studies. Would benefit from Procrit therapy once iron replete. 5. Polysubstance abuse - Monitor closely for drug withdrawal. Will do neurochecks. Implement seizure, fall and aspiration precautions. Treat with thiamine and folic acid and monitor electrolytes (Ca,Mg,K,P). Counseled patient about abstaining from drug abuse. Will consult wildlife removal specialist and refer to drug detox upon discharge. 6. DVT prophylaxis - Lovenox 40 mg SQ q 24 hours. 7. Advance directives - Full code
[2019-05-25] MEDS ORDERED: PIPERACILLIN/TAZOB 3.375 GM 3.375 GM in DEXTROSE 5%-WATER - 50 ML IVPB SCH (02:30)
--- NOTE | 2019-05-25 02:31 | HP ---
PCP: none HISTORY OF PRESENT ILLNESS: Patient is a 54 yo M with a PMHx of HIV (dx over 10 years ago), Hep C (untreated ), polysubstance abuse (heroin via inhalation), POOR HISTORIAN, was sent from [facility] because of fever of 100.2 and Leukopenia. Patient not cooperating but admits to having dysuria and increased frequency of urination over the last 2 days. He also says his nose has been congested. Patient denies cough, sob, nausea, vomiting, chills, fevers, sob, chest pain, abdominal pain. ER course was notable for: (1) 101 temp, 93/53 BP (2) Zosyn, 2 L NS (3) CXR unremarkable Family History: Allergies No Known Allergies Allergy (Verified 05/24/19 20:35) HOME MEDICATIONS: Home Medications Medication Instructions Recorded NK [No Known Home Medication] 02/19/19 REVIEW OF SYSTEMS Limited ROS. Patient agitated. Not answering many questions. CONSTITUTIONAL: Absent: fever, chills, diaphoresis, generalized weakness, malaise, weight change CARDIOVASCULAR: Absent: chest pain, syncope, palpitations, irregular heart rate, lightheadedness , peripheral edema RESPIRATORY: Absent: cough, shortness of breath, dyspnea with exertion GASTROINTESTINAL: Absent: abdominal pain, abdominal distension, nausea GENITOURINARY: dysuria, frequency, urgencia Absent: hematuria PHYSICAL EXAMINATION Vital Signs - 24 hr 05/24/19 05/24/19 05/24/19 20:35 21:10 23:35 Temperature 101.0 F H 98.5 F Pulse Rate 102 H Pulse Rate [ Right Radial] Respiratory 20 Rate Blood Pressure 146/78 Blood Pressure [Left Arm] O2 Sat by Pulse 99 99 Oximetry (%) 05/25/19 01:10 Temperature Pulse Rate Pulse Rate [ 78 Right Radial] Respiratory 20 Rate Blood Pressure Blood Pressure 93/53 L [Left Arm] O2 Sat by Pulse 100 Oximetry (%) Limited PE GENERAL:thin appearing, malnourished. comfortable in bed sleeping. agitated. yelling at me. EYES: sclera anicteric EARS, NOSE, THROAT: +oral thrush LUNGS: Breath sounds equal, clear to auscultation bilaterally HEART: RRR, unable to auscultate for murmur ABDOMEN: Soft, nontender LOWER EXTREMITIES: No peripheral edema. Laboratory Results - last 24 hr 05/24/19 05/24/19 05/24/19 22:03 22:40 22:40 WBC 2.9 L RBC 2.87 L Hgb 8.5 L Hct 24.7 L MCV 86.0 MCH 29.6 MCHC 34.4 RDW 15.8 Plt Count 136 D MPV 8.5 D Absolute Neuts (auto) 2.4 Neutrophils % 80.5 Neutrophils % (Manual) 74.6 Band Neutrophils % 0.0 Lymphocytes % 9.5 Lymphocytes % (Manual) 11.8 Monocytes % 6.6 Monocytes % (Manual) 2 L Eosinophils % 2.6 Eosinophils % (Manual) 4.5 Basophils % 0.8 Basophils % (Manual) 0.9 Myelocytes % (Man) 0 Promyelocytes % (Man) 0 Blast Cells % (Manual) 0 Nucleated RBC % 0 Metamyelocytes 6 H Hypochromia 0 Platelet Estimate Normal Polychromasia 0 Poikilocytosis 2+ Anisocytosis 2+ Microcytosis 2+ Macrocytosis 0 Ovalocytes 1+ PT with INR INR PTT (Actin FS) VBG pH POC VBG pCO2 POC VBG pO2 VBG HCO3 VBG O2 Sat (Mendoza) VBG Base Excess Sodium 133 L Potassium 3.5 Chloride 100 Carbon Dioxide 27 Anion Gap 6 L BUN 9.3 Creatinine 0.6 Est GFR (CKD-EPI)AfAm 132.11 Est GFR (CKD-EPI)NonAf 113.99 Random Glucose 97 Lactic Acid Calcium 8.0 L Total Bilirubin 0.5 AST 29 ALT 18 Alkaline Phosphatase 78 Ammonia Creatine Kinase 138 Troponin I < 0.02 Total Protein 7.6 Albumin 2.8 L Urine Color Urine Appearance Urine pH Ur Specific [place] Urine Protein Urine Glucose (UA) Urine Ketones Urine Blood Urine Nitrite Urine Bilirubin Urine Urobilinogen Ur Leukocyte Esterase Urine WBC (Auto) Urine RBC (Auto) Urine Casts (Auto) U Epithel Cells (Auto) Urine Bacteria (Auto) Blood Type Antibody Screen 05/24/19 05/24/19 05/24/19 22:40 22:40 22:40 WBC RBC Hgb Hct MCV MCH MCHC RDW Plt Count MPV Absolute Neuts (auto) Neutrophils % Neutrophils % (Manual) Band Neutrophils % Lymphocytes % Lymphocytes % (Manual) Monocytes % Monocytes % (Manual) Eosinophils % Eosinophils % (Manual) Basophils % Basophils % (Manual) Myelocytes % (Man) Promyelocytes % (Man) Blast Cells % (Manual) Nucleated RBC % Metamyelocytes Hypochromia Platelet Estimate Polychromasia Poikilocytosis Anisocytosis Microcytosis Macrocytosis Ovalocytes PT with INR 13.20 H INR 1.12 H PTT (Actin FS) 32.6 VBG pH 7.45 H POC VBG pCO2 39.9 POC VBG pO2 < 49 H VBG HCO3 27.5 VBG O2 Sat (Mendoza) 80.2 H VBG Base Excess 3.8 H Sodium Potassium Chloride Carbon Dioxide Anion Gap BUN Creatinine Est GFR (CKD-EPI)AfAm Est GFR (CKD-EPI)NonAf Random Glucose Lactic Acid 0.8 Calcium Total Bilirubin AST ALT Alkaline Phosphatase Ammonia Creatine Kinase Troponin I Total Protein Albumin Urine Color Urine Appearance Urine pH Ur Specific [place] Urine Protein Urine Glucose (UA) Urine Ketones Urine Blood Urine Nitrite Urine Bilirubin Urine Urobilinogen Ur Leukocyte Esterase Urine WBC (Auto) Urine RBC (Auto) Urine Casts (Auto) U Epithel Cells (Auto) Urine Bacteria (Auto) Blood Type Antibody Screen 05/24/19 05/24/19 05/24/19 22:40 22:40 22:45 WBC RBC Hgb Hct MCV MCH MCHC RDW Plt Count MPV Absolute Neuts (auto) Neutrophils % Neutrophils % (Manual) Band Neutrophils % Lymphocytes % Lymphocytes % (Manual) Monocytes % Monocytes % (Manual) Eosinophils % Eosinophils % (Manual) Basophils % Basophils % (Manual) Myelocytes % (Man) Promyelocytes % (Man) Blast Cells % (Manual) Nucleated RBC % Metamyelocytes Hypochromia Platelet Estimate Polychromasia Poikilocytosis Anisocytosis Microcytosis Macrocytosis Ovalocytes PT with INR INR PTT (Actin FS) VBG pH POC VBG pCO2 POC VBG pO2 VBG HCO3 VBG O2 Sat (Mendoza) VBG Base Excess Sodium Potassium Chloride Carbon Dioxide Anion Gap BUN Creatinine Est GFR (CKD-EPI)AfAm Est GFR (CKD-EPI)NonAf Random Glucose Lactic Acid Calcium Total Bilirubin AST ALT Alkaline Phosphatase Ammonia 30.80 Creatine Kinase Troponin I Total Protein Albumin Urine Color Yellow Urine Appearance Clear Urine pH 6.5 Ur Specific [place] 1.019 Urine Protein 1+ H Urine Glucose (UA) Negative Urine Ketones Negative Urine Blood Negative Urine Nitrite Negative Urine Bilirubin Negative Urine Urobilinogen 1.0 Ur Leukocyte Esterase Trace Urine WBC (Auto) 4 Urine RBC (Auto) 2 Urine Casts (Auto) 1 U Epithel Cells (Auto) 2.5 Urine Bacteria (Auto) 422.4 Blood Type A POSITIVE Antibody Screen Negative ASSESSMENT/PLAN: 54 yo M with a PMHx of HIV (dx over 10 years ago), Hep C (untreated), polysubstance abuse (heroin via inhalation), presented because of Fever. #Sepsis 2/2 UTI? -patient with urinary symptoms. U/A positive but not convincing. -CXR unremarkable. -Leukopenia (but seems chronic going over previous labs) -Hypotensive -IV fluids NS @ 100 -Vanc/Zosyn, consider Bactrim in AM (due to patient possibly immunocompromised, although no pulmonary symptoms), only complains of nasal congestion -If positive blood cultures, consider workup for endocarditis #HIV -unknown CD4, viral load -Consider ordering once resolution of acute symptoms -ID on board. -consider bactrim for PCP ppx -nystatin swish and swallow for oral thrush #Anemia -no signs of bleeding -iron studies -stool for occult test ordered #Polysubstance abuse -Monitor closely for drug withdrawal. -Implement seizure, fall and aspiration precautions. -consider community specialist consult and refer to drug detox upon discharge. #FEN -NS @ 100ml/hour -monitor lytes -regular diet #Dvt ppx -hep sq Visit type - Emergency Visit Emergency Visit: Yes ED Registration Date: 05/25/19 Care time: The patient presented to the Emergency Department on the above date and was hospitalized for further evaluation of their emergent condition. - New Patient This patient is new to me today: Yes Date on this admission: 05/26/19 - Critical Care Critical Care patient: No ATTENDING PHYSICIAN STATEMENT I saw and evaluated the patient. I reviewed the resident's note and discussed the case with the resident. I agree with the resident's findings and plan as documented. SUBJECTIVE: OBJECTIVE: ASSESSMENT AND PLAN:
--- NOTE | 2019-05-25 02:33 | PDOC ---
*Physical Exam - Vital Signs Last Vital Signs Temp Pulse Resp BP Pulse Ox 98.5 F 78 20 93/53 L 100 05/24/19 23:35 05/25/19 01:10 05/25/19 01:10 05/25/19 01:10 05/25/19 01:10 ED Treatment Course - LABORATORY CBC & Chemistry Diagram: 05/24/19 22:40 05/24/19 22:40 - ADDITIONAL ORDERS Additional order review: Laboratory Results 05/24/19 05/24/19 05/24/19 22:45 22:40 22:40 PT with INR INR PTT (Actin FS) VBG pH POC VBG pCO2 POC VBG pO2 VBG HCO3 VBG O2 Sat (Mendoza) VBG Base Excess Sodium Potassium Chloride Carbon Dioxide Anion Gap BUN Creatinine Est GFR (CKD-EPI)AfAm Est GFR (CKD-EPI)NonAf Random Glucose Lactic Acid Calcium Total Bilirubin AST ALT Alkaline Phosphatase Ammonia 30.80 Creatine Kinase Troponin I Total Protein Albumin Urine Color Yellow Urine Appearance Clear Urine pH 6.5 Ur Specific [place] 1.019 Urine Protein 1+ H Urine Glucose (UA) Negative Urine Ketones Negative Urine Blood Negative Urine Nitrite Negative Urine Bilirubin Negative Urine Urobilinogen 1.0 Ur Leukocyte Esterase Trace Urine WBC (Auto) 4 Urine RBC (Auto) 2 Urine Casts (Auto) 1 U Epithel Cells (Auto) 2.5 Urine Bacteria (Auto) 422.4 Blood Type A POSITIVE Antibody Screen Negative 05/24/19 05/24/19 05/24/19 22:40 22:40 22:40 PT with INR 13.20 H INR 1.12 H PTT (Actin FS) 32.6 VBG pH 7.45 H POC VBG pCO2 39.9 POC VBG pO2 < 49 H VBG HCO3 27.5 VBG O2 Sat (Mendoza) 80.2 H VBG Base Excess 3.8 H Sodium Potassium Chloride Carbon Dioxide Anion Gap BUN Creatinine Est GFR (CKD-EPI)AfAm Est GFR (CKD-EPI)NonAf Random Glucose Lactic Acid 0.8 Calcium Total Bilirubin AST ALT Alkaline Phosphatase Ammonia Creatine Kinase Troponin I Total Protein Albumin Urine Color Urine Appearance Urine pH Ur Specific [place] Urine Protein Urine Glucose (UA) Urine Ketones Urine Blood Urine Nitrite Urine Bilirubin Urine Urobilinogen Ur Leukocyte Esterase Urine WBC (Auto) Urine RBC (Auto) Urine Casts (Auto) U Epithel Cells (Auto) Urine Bacteria (Auto) Blood Type Antibody Screen 05/24/19 05/24/19 22:40 22:03 PT with INR INR PTT (Actin FS) VBG pH POC VBG pCO2 POC VBG pO2 VBG HCO3 VBG O2 Sat (Mendoza) VBG Base Excess Sodium 133 L Potassium 3.5 Chloride 100 Carbon Dioxide 27 Anion Gap 6 L BUN 9.3 Creatinine 0.6 Est GFR (CKD-EPI)AfAm 132.11 Est GFR (CKD-EPI)NonAf 113.99 Random Glucose 97 Lactic Acid Calcium 8.0 L Total Bilirubin 0.5 AST 29 ALT 18 Alkaline Phosphatase 78 Ammonia Creatine Kinase 138 Troponin I < 0.02 Total Protein 7.6 Albumin 2.8 L Urine Color Urine Appearance Urine pH Ur Specific [place] Urine Protein Urine Glucose (UA) Urine Ketones Urine Blood Urine Nitrite Urine Bilirubin Urine Urobilinogen Ur Leukocyte Esterase Urine WBC (Auto) Urine RBC (Auto) Urine Casts (Auto) U Epithel Cells (Auto) Urine Bacteria (Auto) Blood Type Antibody Screen 05/24/19 22:40 RBC 2.87 L MCV 86.0 MCHC 34.4 RDW 15.8 MPV 8.5 D Neutrophils % 80.5 Lymphocytes % 9.5 Monocytes % 6.6 Eosinophils % 2.6 Basophils % 0.8 - Medications Given in the ED: ED Medications Discontinued Medications Generic Name Dose Route Start Last Admin Trade Name Alvarez PRN Reason Stop Dose Admin Acetaminophen 1,000 mg 05/24/19 21:07 05/24/19 22:35 Ofirmev Injection - IVPB 05/24/19 21:08 1,000 mg ONCE ONE Administration Sodium Chloride 2,654 mls @ 1,327 mls/hr 05/24/19 21:04 05/24/19 22:35 Normal Saline - 30 ml/kg infuse over 2 hr (2654 ml) 05/24/19 23:03 1,327 mls/hr IV Administration ONCE ONE Piperacillin Sod/Tazobactam 50 mls @ 100 mls/hr 05/24/19 23:44 05/24/19 23:55 Sod 3.375 gm/ Dextrose IVPB 05/25/19 00:13 100 mls/hr ONCE ONE Administration Protocol Sodium Chloride 1,000 mls @ 1,000 mls/hr 05/25/19 01:18 05/25/19 01:27 Normal Saline - IV 05/25/19 02:17 1,000 mls/hr ASDIR STA Administration Medical Decision Making - Medical Decision Making 05/25/19 02:32 Received on signout from Dr El 54 yo M with a hx of HIV (dx 30 days ago per records, but no objective data and patient not on medications), Hepatitis C (not on medications), and polysubstance abuse (most notably heroin via nasal inhalation; uses 3 bags daily over the course of the month with commencement at age [age] years old; hx of IV usage in the past) presents to the emergency department from [facility] with evaluation of fever. Leukopenia noted with hyperammonia. Patient noted to have UTI on UA. Patient was febrile presenting to the ED. Pending HIV test. Patient noted to have thrush on examination. Concerns exist for infection in setting of HIV without medications with leukopenia. Currently on zosyn Required additional 1L bolus for BP 93/53 Repeat examination, patient had no complaints Patent endorsed to admitting team and admitted to med/surg under Dr Felton *DC/Admit/Observation/Transfer Diagnosis at time of Disposition: Sepsis - Discharge Dispostion Decision to Admit order Date/Time: Decision to Admit Order Category Date Time Status Decision to Admit to Hospital Routine Admission 05/25/19 01:49 Ordered - Referrals - Patient Instructions - Post Discharge Activity
[2019-05-25] MEDS ORDERED: VANCOMYCIN 1 GRAM (PRE-DOCKED) 1,000 MG/250 ML BAG IVPB ONE ×2 (02:45→10:00)
[2019-05-25] MEDS ORDERED: PIPERACILLIN/TAZOB 2.25 GM 2.25 GM in DEXTROSE 5%-WATER - 50 ML IVPB SCH ×2 (02:53→03:00)
[2019-05-25] MEDS: PIPERACILLIN/TAZOB 2.25 GM 2.25 GM in DEXTROSE 5%-WATER - 50 ML IVPB SCH ×5 (03:05→17:41)
[2019-05-25] MEDS: SODIUM CHLORIDE 1,000 ML IV SCH ×2 (03:45→21:56)
[2019-05-25] MEDS ORDERED: HEPARIN NA (PORCINE) 5,000 UNITS/ML 1ML VIAL ONE (06:44)
[2019-05-25] MEDS: HEPARIN NA (PORCINE) 5,000 UNITS/ML 1ML VIAL SQ SCH ×3 (07:02→21:55)
[2019-05-25] MEDS ORDERED: VANCOMYCIN 1 GM in D5W (PRE-DOCKED) 1,000 MG/250 ML IVPB SCH (10:00)
[2019-05-25 10:20] LABS: BASO % 0.8 % (0-2.0); EOS % 2.7 % (0-4.5); HEMATOCRIT 24.3 % (35.4-49); HEMOGLOBIN 8.2 GM/dL (11.7-16.9); LYMPH % 11.2 % (8-40); MCH 29.4 pg (25.7-33.7); MCHC 33.9 g/dl (32.0-35.9); MEAN CELL VOLUME 86.6 fl (80-96); MEAN PLT VOLUME 8.1 fl (7.5-11.1); MONO % 3.9 % (3.8-10.2); NEUT % 81.4 % (42.8-82.8); PLATELET COUNT 126 K/MM3 (134-434); RDW 15.9 % (11.9-15.9); WHITE BLOOD COUNT 2.6 K/mm3 (4.0-10.0)
[2019-05-25] MEDS ORDERED: PIPERACILLIN/TAZOBACTAM 2.25 GM VIAL IVPB ONE ×2 (10:23→17:08)
[2019-05-25] MEDS ORDERED: DEXTROSE 5%-WATER - 50 ML IVPB ONE ×2 (10:23→17:08)
[2019-05-25 10:55] LABS: ALBUMIN 2.6 g/dl (3.4-5.0); BILIRUBIN,TOTAL 0.2 mg/dL (0.2-1); BLOOD UREA NITROGEN 6.5 mg/dL (7-18); CALCIUM 7.6 mg/dL (8.5-10.1); CREATININE 0.7 mg/dL (0.55-1.3); PHOSPHOROUS 2.8 mg/dL (2.5-4.9); POTASSIUM 3.4 mmol/L (3.5-5.1); TOT PROT 6.8 g/dl (6.4-8.2)
[2019-05-25 11:13] LABS: ANISOCYTOSIS 1+; MACROCYTOSIS 0; PLATELET ESTIMATE DECREASED
[2019-05-25] MEDS: NYSTATIN 500,000 UNITS/5 ML SUSPENSION PO SCH ×3 (12:26→18:13)
--- NOTE | 2019-05-25 12:52 | PN ---
Physical Exam: SUBJECTIVE: Patient seen and examined, minimally participating in the interview. denies any fevers, chill, nausea, vomiting, abdominal pain, cough, headache, dyspnea or urinary symptoms currently OBJECTIVE: Vital Signs Period Temp Pulse Resp BP Sys/[place] Pulse Ox Last 24 Hr 98.1 F-101.0 F 67-102 16-20 93-146/49-78 97-100 Intake & Output 05/22/19 05/23/19 05/24/19 05/25/19 23:59 23:59 23:59 23:59 Weight 195 lb 145 lb 3 oz GENERAL: lying in bed, no acute distress Neck: soft, supple, no JVD HEENT: PERRL, EOMI CVS:S1s2 regular Chest: distant breath sounds all over, no rales or wheezing appreciated Abdomen: midline healed vertical scar, isolated suture in upper abdomen (per patient has been in place for ?25 years after surgery in [place]), Non tender,ND, pos bowel sounds, no voluntary or involuntary guarding or rigidity Genital right scrotum multiple 1 cm incision with bleeding, induration with ecchymosis on left inner thigh Extremities: no edema or limitation of ROM, pos pulses Laboratory Results - last 24 hr 05/24/19 05/24/19 05/24/19 08:35 22:03 22:40 WBC 2.9 L RBC 2.87 L Hgb 8.5 L Hct 24.7 L MCV 86.0 MCH 29.6 MCHC 34.4 RDW 15.8 Plt Count 136 D MPV 8.5 D Absolute Neuts (auto) 2.4 Neutrophils % 80.5 Neutrophils % (Manual) 74.6 Band Neutrophils % 0.0 Lymphocytes % 9.5 Lymphocytes % (Manual) 11.8 Monocytes % 6.6 Monocytes % (Manual) 2 L Eosinophils % 2.6 Eosinophils % (Manual) 4.5 Basophils % 0.8 Basophils % (Manual) 0.9 Myelocytes % (Man) 0 Promyelocytes % (Man) 0 Blast Cells % (Manual) 0 Nucleated RBC % 0 Metamyelocytes 6 H Hypochromia 0 Platelet Estimate Normal Polychromasia 0 Poikilocytosis 2+ Anisocytosis 2+ Microcytosis 2+ Macrocytosis 0 Ovalocytes 1+ Schistocytes PT with INR INR PTT (Actin FS) VBG pH POC VBG pCO2 POC VBG pO2 VBG HCO3 VBG O2 Sat (Mendoza) VBG Base Excess Sodium Potassium Chloride Carbon Dioxide Anion Gap BUN Creatinine Est GFR (CKD-EPI)AfAm Est GFR (CKD-EPI)NonAf Random Glucose Lactic Acid Calcium Phosphorus Magnesium Iron TIBC Iron Saturation Unsaturated IBC Ferritin Total Bilirubin AST ALT Alkaline Phosphatase Ammonia Creatine Kinase 138 Troponin I < 0.02 Total Protein Albumin Urine Color Urine Appearance Urine pH Ur Specific [place] Urine Protein Urine Glucose (UA) Urine Ketones Urine Blood Urine Nitrite Urine Bilirubin Urine Urobilinogen Ur Leukocyte Esterase Urine WBC (Auto) Urine RBC (Auto) Urine Casts (Auto) U Epithel Cells (Auto) Urine Bacteria (Auto) Blood Type A POSITIVE Antibody Screen 05/24/19 05/24/19 05/24/19 22:40 22:40 22:40 WBC RBC Hgb Hct MCV MCH MCHC RDW Plt Count MPV Absolute Neuts (auto) Neutrophils % Neutrophils % (Manual) Band Neutrophils % Lymphocytes % Lymphocytes % (Manual) Monocytes % Monocytes % (Manual) Eosinophils % Eosinophils % (Manual) Basophils % Basophils % (Manual) Myelocytes % (Man) Promyelocytes % (Man) Blast Cells % (Manual) Nucleated RBC % Metamyelocytes Hypochromia Platelet Estimate Polychromasia Poikilocytosis Anisocytosis Microcytosis Macrocytosis Ovalocytes Schistocytes PT with INR 13.20 H INR 1.12 H PTT (Actin FS) 32.6 VBG pH POC VBG pCO2 POC VBG pO2 VBG HCO3 VBG O2 Sat (Mendoza) VBG Base Excess Sodium 133 L Potassium 3.5 Chloride 100 Carbon Dioxide 27 Anion Gap 6 L BUN 9.3 Creatinine 0.6 Est GFR (CKD-EPI)AfAm 132.11 Est GFR (CKD-EPI)NonAf 113.99 Random Glucose 97 Lactic Acid 0.8 Calcium 8.0 L Phosphorus Magnesium Iron TIBC Iron Saturation Unsaturated IBC Ferritin Total Bilirubin 0.5 AST 29 ALT 18 Alkaline Phosphatase 78 Ammonia Creatine Kinase Troponin I Total Protein 7.6 Albumin 2.8 L Urine Color Urine Appearance Urine pH Ur Specific [place] Urine Protein Urine Glucose (UA) Urine Ketones Urine Blood Urine Nitrite Urine Bilirubin Urine Urobilinogen Ur Leukocyte Esterase Urine WBC (Auto) Urine RBC (Auto) Urine Casts (Auto) U Epithel Cells (Auto) Urine Bacteria (Auto) Blood Type Antibody Screen 05/24/19 05/24/19 05/24/19 22:40 22:40 22:40 WBC RBC Hgb Hct MCV MCH MCHC RDW Plt Count MPV Absolute Neuts (auto) Neutrophils % Neutrophils % (Manual) Band Neutrophils % Lymphocytes % Lymphocytes % (Manual) Monocytes % Monocytes % (Manual) Eosinophils % Eosinophils % (Manual) Basophils % Basophils % (Manual) Myelocytes % (Man) Promyelocytes % (Man) Blast Cells % (Manual) Nucleated RBC % Metamyelocytes Hypochromia Platelet Estimate Polychromasia Poikilocytosis Anisocytosis Microcytosis Macrocytosis Ovalocytes Schistocytes PT with INR INR PTT (Actin FS) VBG pH 7.45 H POC VBG pCO2 39.9 POC VBG pO2 < 49 H VBG HCO3 27.5 VBG O2 Sat (Mendoza) 80.2 H VBG Base Excess 3.8 H Sodium Potassium Chloride Carbon Dioxide Anion Gap BUN Creatinine Est GFR (CKD-EPI)AfAm Est GFR (CKD-EPI)NonAf Random Glucose Lactic Acid Calcium Phosphorus Magnesium Iron TIBC Iron Saturation Unsaturated IBC Ferritin Total Bilirubin AST ALT Alkaline Phosphatase Ammonia 30.80 Creatine Kinase Troponin I Total Protein Albumin Urine Color Urine Appearance Urine pH Ur Specific [place] Urine Protein Urine Glucose (UA) Urine Ketones Urine Blood Urine Nitrite Urine Bilirubin Urine Urobilinogen Ur Leukocyte Esterase Urine WBC (Auto) Urine RBC (Auto) Urine Casts (Auto) U Epithel Cells (Auto) Urine Bacteria (Auto) Blood Type A POSITIVE Antibody Screen Negative 05/24/19 05/25/19 05/25/19 22:45 08:35 08:35 WBC RBC Hgb Hct MCV MCH MCHC RDW Plt Count MPV Absolute Neuts (auto) Neutrophils % Neutrophils % (Manual) Band Neutrophils % Lymphocytes % Lymphocytes % (Manual) Monocytes % Monocytes % (Manual) Eosinophils % Eosinophils % (Manual) Basophils % Basophils % (Manual) Myelocytes % (Man) Promyelocytes % (Man) Blast Cells % (Manual) Nucleated RBC % Metamyelocytes Hypochromia Platelet Estimate Polychromasia Poikilocytosis Anisocytosis Microcytosis Macrocytosis Ovalocytes Schistocytes PT with INR INR PTT (Actin FS) VBG pH POC VBG pCO2 POC VBG pO2 VBG HCO3 VBG O2 Sat (Mendoza) VBG Base Excess Sodium 138 Potassium 3.4 L Chloride 107 Carbon Dioxide 26 Anion Gap 5 L BUN 6.5 L Creatinine 0.7 Est GFR (CKD-EPI)AfAm 124.00 Est GFR (CKD-EPI)NonAf 106.99 Random Glucose 88 Lactic Acid Calcium 7.6 L Phosphorus 2.8 Magnesium 2.0 Iron 31 L TIBC 189 L Iron Saturation 16 L Unsaturated IBC 158 L Ferritin 223.2 Total Bilirubin 0.2 AST 27 ALT 17 Alkaline Phosphatase 70 Ammonia Creatine Kinase Troponin I Total Protein 6.8 Albumin 2.6 L Urine Color Yellow Urine Appearance Clear Urine pH 6.5 Ur Specific [place] 1.019 Urine Protein 1+ H Urine Glucose (UA) Negative Urine Ketones Negative Urine Blood Negative Urine Nitrite Negative Urine Bilirubin Negative Urine Urobilinogen 1.0 Ur Leukocyte Esterase Trace Urine WBC (Auto) 4 Urine RBC (Auto) 2 Urine Casts (Auto) 1 U Epithel Cells (Auto) 2.5 Urine Bacteria (Auto) 422.4 Blood Type Antibody Screen 05/25/19 09:15 WBC 2.6 L RBC 2.80 L Hgb 8.2 L Hct 24.3 L MCV 86.6 MCH 29.4 MCHC 33.9 RDW 15.9 Plt Count 126 L MPV 8.1 Absolute Neuts (auto) 2.1 Neutrophils % 81.4 Neutrophils % (Manual) 79.4 Band Neutrophils % 0.0 Lymphocytes % 11.2 Lymphocytes % (Manual) 11.8 Monocytes % 3.9 Monocytes % (Manual) 7 D Eosinophils % 2.7 Eosinophils % (Manual) 1.9 Basophils % 0.8 Basophils % (Manual) 0.0 Myelocytes % (Man) 0 Promyelocytes % (Man) 0 Blast Cells % (Manual) 0 Nucleated RBC % 0 Metamyelocytes 0 D Hypochromia 0 Platelet Estimate Decreased Polychromasia 0 Poikilocytosis 1+ Anisocytosis 1+ Microcytosis 1+ Macrocytosis 0 Ovalocytes Schistocytes 1+ PT with INR INR PTT (Actin FS) VBG pH POC VBG pCO2 POC VBG pO2 VBG HCO3 VBG O2 Sat (Mendoza) VBG Base Excess Sodium Potassium Chloride Carbon Dioxide Anion Gap BUN Creatinine Est GFR (CKD-EPI)AfAm Est GFR (CKD-EPI)NonAf Random Glucose Lactic Acid Calcium Phosphorus Magnesium Iron TIBC Iron Saturation Unsaturated IBC Ferritin Total Bilirubin AST ALT Alkaline Phosphatase Ammonia Creatine Kinase Troponin I Total Protein Albumin Urine Color Urine Appearance Urine pH Ur Specific [place] Urine Protein Urine Glucose (UA) Urine Ketones Urine Blood Urine Nitrite Urine Bilirubin Urine Urobilinogen Ur Leukocyte Esterase Urine WBC (Auto) Urine RBC (Auto) Urine Casts (Auto) U Epithel Cells (Auto) Urine Bacteria (Auto) Blood Type Antibody Screen Active Medications Generic Name Dose Route Start Last Admin Trade Name Alvarez PRN Reason Stop Dose Admin Heparin Sodium (Porcine) 5,000 unit 05/25/19 06:00 05/25/19 07:02 Heparin - SQ 5,000 unit TID TAMERA Administration Sodium Chloride 1,000 mls @ 100 mls/hr 05/25/19 02:30 05/25/19 03:45 Normal Saline - IV 100 mls/hr ASDIR TAMERA Administration Piperacillin Sod/Tazobactam 50 mls @ 100 mls/hr 05/25/19 02:53 05/25/19 12:28 Sod 2.25 gm/ Dextrose IVPB 100 mls/hr Q6H-IV TAMERA Administration Piperacillin Sod/Tazobactam 50 mls @ 100 mls/hr 05/25/19 06:00 Sod 2.25 gm/ Dextrose IVPB Q6H-IV TAMERA Protocol Nystatin 500,000 units 05/25/19 06:00 05/25/19 12:33 Nystatin Oral Suspension - PO 500,000 units Q6HPO TAMERA Administration Vancomycin HCl 1,000 mg 05/25/19 10:00 Vancomycin (Pre-Docked) IVPB DAILY TAMERA Protocol Home Medications Medication Instructions Recorded NK [No Known Home Medication] 02/19/19 ASSESSMENT/PLAN: 54 yom with PMHx of HIV (dx over 10 years ago) not on HAART, Hep C (untreated), polysubstance abuse/IVDU (reported daily 2-3 bags heroine, crack cocaine, alcohol, tobacco) sent from [facility] with fevers and urinary symptoms. -Sepsis, suspected complicated UTI, r/o abdominal source, given retain suture, scrotal abrasions -HIV not on HAART, r/o AIDS -Hepatitis C -Polysubstance abuse/IVDU (reported daily 2-3 bags heroine, crack cocaine, alcohol, tobacco) Plan: Discussed with Dr. Oneil. Change abx to ceftriaxone, follow up blood/urine cultures CT A/P Detox consult IVF [id number] lovenox Dispo pending clinical improvement. Discussed with nursing. Visit type - Emergency Visit Emergency Visit: Yes ED Registration Date: 05/25/19 Care time: The patient presented to the Emergency Department on the above date and was hospitalized for further evaluation of their emergent condition. - New Patient This patient is new to me today: Yes Date on this admission: 05/25/19 - Critical Care Critical Care patient: No - Discharge Referral Referred to [facility] Med P.C.: No
--- NOTE | 2019-05-25 15:01 | EKG ---
Test Reason : Blood Pressure : / mmHG Vent. Rate : 084 BPM Atrial Rate : 084 BPM P-R Int : 118 ms QRS Dur : 078 ms QT Int : 396 ms P-R-T Axes : 003 072 091 degrees QTc Int : 467 ms NORMAL SINUS RHYTHM NORMAL ECG WHEN COMPARED WITH ECG OF 16-APR-2019 01:53, NO SIGNIFICANT CHANGE WAS FOUND Confirmed by MD WHITEHEAD MOYSES ([id number]) on 05/25/2019 3:00:58 PM Referred By: Confirmed By:KAUR WHITEHEAD MD
--- NOTE | 2019-05-25 17:18 | PN ---
Progress Note (short form) - Note Progress Note: ID CHART REVIEWED PT SEEN PT UNCOOPERATIVE WITH INTERVIEW AND EXAM ADVISE CEFTRIAXONE PENDING SEPSIS W/U OBTAIN HIV TEST/ CD4 CONSIDER PSYCH EVAL REHAB PLACEMENT
[2019-05-25] MEDS ORDERED: DEXTROSE 5%-WATER 100 ML IVPB ONE (18:05)
[2019-05-25] MEDS: CEFTRIAXONE 2 GM in DEXTROSE 5%-WATER 100 ML IVPB SCH (18:08)
--- NOTE | 2019-05-25 19:09 | CONS ---
DATE OF CONSULTATION: 05/25/2019 HISTORY OF PRESENT ILLNESS: The patient is a 54-year-old male evaluated for suspected HIV infection. Please note the patient was not cooperative with the interview and physical examination. He was admitted to detox on May 24, 2019. While in detox, he was noted to have a temperature of 100.2. He was transferred to the emergency room where he was noted to be hypotensive, requiring IV fluids. He was empirically treated with vancomycin and Zosyn. A urinalysis showed 4 white cells. When questioned, he reported dysuria. Again, please note the patient was uncooperative, lying in bed with the covers pulled up over his head. He would not participate in the interview and was uncooperative with the physical examination. According to the notes, he has recently been diagnosed with HIV. It is not known if he has had a viral load or CD-4 count taken. He is not presently on anti-retroviral therapy. PAST MEDICAL HISTORY: According to the chart, also positive for hepatitis C, polysubstance abuse and injection drug use. ALLERGIES: No known allergies. SOCIAL HISTORY: Again according to the notes, he is apparently homeless and has a history of polysubstance abuse. LABORATORY DATA: White count 2.6, hematocrit 24.3, platelets 126. His ANC is 2.1. Creatinine 0.7. Liver enzymes are normal. Culture is pending. PHYSICAL EXAMINATION: General: The patient is uncooperative. Vital Signs: Temperature 98.2, pulse 78 and regular, blood pressure 119/66, respiratory rate 20 per minute. HEENT: The patient would not open his mouth for examination. Heart: Heart sounds S1, S2. Lungs: Grossly clear. Abdomen: Nontender. There is a vertical surgical scar present which appears to be well healed. Extremities: Negative for edema. There are multiple ulcerations present on the lower extremities bilaterally. The patient would not cooperate with the rest of the examination. IMPRESSION: 1. Fever, hypotension, pyuria; rule out UTI/sepsis secondary to UTI. 2. History of recent positive HIV test. 3. Pancytopenia. 4. Polysubstance abuse. PLAN: 1. Pending sepsis workup, would empirically treat with ceftriaxone, 2 grams IV piggyback daily. 2. Obtain HIV test and CD-4 lymphocyte count. 3. Consider psychiatric evaluation. 4. Will require rehab placement. Thank you for the kind referral. SEYMOUR BROWN M.D. [id number]
[2019-05-25 20:11] VITALS: BMI 20.2
[2019-05-25] MEDS ORDERED: ACETAMINOPHEN 1000 MG/100 ML VIAL (NON FORMULARY) IVPB ONE (22:25)
[2019-05-26] MEDS: NYSTATIN 500,000 UNITS/5 ML SUSPENSION PO SCH ×4 (01:24→17:01)
[2019-05-26] MEDS: SODIUM CHLORIDE 1,000 ML IV SCH ×2 (05:49→14:38)
[2019-05-26] MEDS: HEPARIN NA (PORCINE) 5,000 UNITS/ML 1ML VIAL SQ SCH ×4 (05:50→21:32)
[2019-05-26 08:17] LABS: BASO % 0.7 % (0-2.0); EOS % 2.1 % (0-4.5); HEMOGLOBIN 8.6 GM/dL (11.7-16.9); LYMPH % 12.8 % (8-40); MCH 29.3 pg (25.7-33.7); MCHC 34.5 g/dl (32.0-35.9); MEAN CELL VOLUME 84.9 fl (80-96); MEAN PLT VOLUME 8.4 fl (7.5-11.1); MONO % 2.7 % (3.8-10.2); NEUT % 81.7 % (42.8-82.8); PLATELET COUNT 123 K/MM3 (134-434); RBC 2.94 M/mm3 (4.00-5.60); RDW 15.7 % (11.9-15.9); WHITE BLOOD COUNT 2.2 K/mm3 (4.0-10.0)
[2019-05-26 08:30] LABS: ALBUMIN 2.5 g/dl (3.4-5.0); BILIRUBIN,DIRECT 0.1 mg/dL (0.0-0.2); BILIRUBIN,TOTAL 0.3 mg/dL (0.2-1); BLOOD UREA NITROGEN 5.3 mg/dL (7-18); CALCIUM 7.8 mg/dL (8.5-10.1); CREATININE 0.6 mg/dL (0.55-1.3); MAGNESIUM 1.9 mg/dL (1.8-2.4); PHOSPHOROUS 2.4 mg/dL (2.5-4.9); POTASSIUM 3.3 mmol/L (3.5-5.1); TOT PROT 6.7 g/dl (6.4-8.2)
[2019-05-26] MEDS ORDERED: DEXTROSE 5%-WATER 100 ML IVPB ONE (09:27)
[2019-05-26] MEDS: CEFTRIAXONE 2 GM in DEXTROSE 5%-WATER 100 ML IVPB SCH (12:27)
[2019-05-26 15:13] LABS: ANISOCYTOSIS 1+; MACROCYTOSIS 0; OVALOCYTE 1+; PLATELET ESTIMATE DECREASED; TEAR DROP CELLS 1+
--- NOTE | 2019-05-26 15:39 | PN ---
Physical Exam: SUBJECTIVE: Patient seen and examined, ambulating in the hallway, no complaints. OBJECTIVE: Vital Signs Period Temp Pulse Resp BP Sys/Bradford Pulse Ox Last 24 Hr 98.1 F-101.0 F 71-92 18-20 101-120/55-82 100-100 Intake & Output 05/23/19 05/24/19 05/25/19 05/26/19 23:59 23:59 23:59 23:59 Intake Total 350 600 Balance 350 600 Weight 195 lb 145 lb GENERAL: lying in bed, no acute distress Neck: soft, supple, no JVD HEENT: PERRL, EOMI CVS:S1s2 regular Chest: distant breath sounds all over, no rales or wheezing appreciated Abdomen: midline healed vertical scar, isolated suture in upper abdomen (per patient has been in place for ?25 years after surgery in [place]), Non tender,ND, pos bowel sounds, no voluntary or involuntary guarding or rigidity Genital right scrotum multiple 1 cm incision with bleeding, induration with ecchymosis on left inner thigh Extremities: no edema or limitation of ROM, pos pulses Laboratory Results - last 24 hr 05/26/19 05/26/19 06:45 06:45 WBC 2.2 L RBC 2.94 L Hgb 8.6 L Hct 25.0 L MCV 84.9 MCH 29.3 MCHC 34.5 RDW 15.7 Plt Count 123 L MPV 8.4 Absolute Neuts (auto) 1.8 Neutrophils % 81.7 Neutrophils % (Manual) 84.7 H Band Neutrophils % 0.0 Lymphocytes % 12.8 Lymphocytes % (Manual) 9.2 D Monocytes % 2.7 L Monocytes % (Manual) 2 L Eosinophils % 2.1 Eosinophils % (Manual) 3.1 Basophils % 0.7 Basophils % (Manual) 0.0 Myelocytes % (Man) 0 Promyelocytes % (Man) 0 Blast Cells % (Manual) 0 Nucleated RBC % 0 Metamyelocytes 0 Hypochromia 0 Platelet Estimate Decreased Platelet Comment Present Polychromasia 0 Poikilocytosis 1+ Anisocytosis 1+ Microcytosis 1+ Macrocytosis 0 Spherocytes 1+ Tear Drop Cells 1+ Ovalocytes 1+ Sodium 134 L Potassium 3.3 L Chloride 102 Carbon Dioxide 25 Anion Gap 7 L BUN 5.3 L Creatinine 0.6 Est GFR (CKD-EPI)AfAm 132.11 Est GFR (CKD-EPI)NonAf 113.99 Random Glucose 88 Calcium 7.8 L Phosphorus 2.4 L Magnesium 1.9 Total Bilirubin 0.3 Direct Bilirubin 0.1 AST 24 ALT 15 Alkaline Phosphatase 64 Total Protein 6.7 Albumin 2.5 L Active Medications Generic Name Dose Route Start Last Admin Trade Name Freq PRN Reason Stop Dose Admin Heparin Sodium (Porcine) 5,000 unit 05/25/19 06:00 05/26/19 14:47 Heparin - SQ Not Given TID TAMERA Sodium Chloride 1,000 mls @ 100 mls/hr 05/25/19 02:30 05/26/19 14:38 Normal Saline - IV 100 mls/hr ASDIR TAMERA Administration Ceftriaxone Sodium 2 gm/ 100 mls @ 200 mls/hr 05/25/19 17:15 05/26/19 12:27 Dextrose IVPB 200 mls/hr DAILY TAMERA Administration Protocol Lorazepam 0.5 mg 05/25/19 17:47 Ativan Injection - IVPUSH 05/25/19 17:48 ASDIR ONE Nystatin 500,000 units 05/25/19 06:00 05/26/19 12:32 Nystatin Oral Suspension - PO 500,000 units Q6HPO TAMERA Administration CT A/p results reviewed Microbiology 05/24/19 22:45 Urine - Urine Clean Catch Urine Culture - Preliminary Presumptive Mssa (Pbp2a Neg) 05/24/19 22:00 Blood - Peripheral Venous Blood Culture - Preliminary NO GROWTH OBTAINED AFTER 24 HOURS, INCUBATION TO CONTINUE FOR 4 DAYS. 05/24/19 22:40 Blood - Peripheral Venous Blood Culture - Preliminary NO GROWTH OBTAINED AFTER 24 HOURS, INCUBATION TO CONTINUE FOR 4 DAYS. ASSESSMENT/PLAN: 54 yom with PMHx of HIV (dx over 10 years ago) not on HAART, Hep C (untreated), polysubstance abuse/IVDU (reported daily 2-3 bags heroine, crack cocaine, alcohol, tobacco) sent from [facility] with fevers and urinary symptoms. -Sepsis, -Complicated UTI with prostatic abscess vs necrotic prostatic nodule -HIV not on HAART, r/o AIDS -Hepatitis C -Polysubstance abuse/IVDU (reported daily 2-3 bags heroine, crack cocaine, alcohol, tobacco) Plan: CT A/P rssults noted, discussed with Dr. Pulido and Dr. Thad, follow up recs. Abx changed to ceftriaxone. Follow up cultures, ongoing feverse. Detox consult IVF DVTPPX lovenox Dispo pending clinical improvement. Discussed with patient, nursing, ID and urology. Visit type - Emergency Visit Emergency Visit: Yes ED Registration Date: 05/25/19 Care time: The patient presented to the Emergency Department on the above date and was hospitalized for further evaluation of their emergent condition. - New Patient This patient is new to me today: No - Critical Care Critical Care patient: No - Discharge Referral Referred to [facility] Med P.C.: No
[2019-05-26] MEDS ORDERED: cloNIDine HCL 0.1 MG TABLET PO PRN (16:32)
[2019-05-26] MEDS ORDERED: METHADONE HCL 10 MG TABLET PO ONE (16:32)
[2019-05-26] MEDS: NAPH,MB-DB/K PH,MBDB POWDER PACKET PO SCH (21:32)
[2019-05-27] MEDS: NYSTATIN 500,000 UNITS/5 ML SUSPENSION PO SCH ×4 (01:00→17:12)
[2019-05-27] MEDS: SODIUM CHLORIDE 1,000 ML IV SCH (05:44)
[2019-05-27] MEDS: HEPARIN NA (PORCINE) 5,000 UNITS/ML 1ML VIAL SQ SCH ×3 (05:47→23:10)
[2019-05-27 07:32] LABS: BASO % 0.5 % (0-2.0); EOS % 5.4 % (0-4.5); HEMATOCRIT 24.2 % (35.4-49); HEMOGLOBIN 8.4 GM/dL (11.7-16.9); MCH 29.6 pg (25.7-33.7); MCHC 34.8 g/dl (32.0-35.9); MEAN PLT VOLUME 8.3 fl (7.5-11.1); NEUT % 74.1 % (42.8-82.8); PLATELET COUNT 124 K/MM3 (134-434); RBC 2.85 M/mm3 (4.00-5.60); RDW 15.6 % (11.9-15.9); WHITE BLOOD COUNT 2.4 K/mm3 (4.0-10.0)
[2019-05-27 08:24] LABS: ALBUMIN 2.3 g/dl (3.4-5.0); BILIRUBIN,TOTAL 0.4 mg/dL (0.2-1); BLOOD UREA NITROGEN 8.8 mg/dL (7-18); CALCIUM 7.5 mg/dL (8.5-10.1); CREATININE 0.6 mg/dL (0.55-1.3); PHOSPHOROUS 3.1 mg/dL (2.5-4.9); POTASSIUM 3.7 mmol/L (3.5-5.1); TOT PROT 6.4 g/dl (6.4-8.2)
[2019-05-27] MEDS ORDERED: DEXTROSE 5%-WATER 100 ML IVPB ONE (08:46)
[2019-05-27] MEDS: CEFTRIAXONE 2 GM in DEXTROSE 5%-WATER 100 ML IVPB SCH (09:18)
[2019-05-27] MEDS: NAPH,MB-DB/K PH,MBDB POWDER PACKET PO SCH ×2 (09:18→23:10)
[2019-05-27] MEDS ORDERED: METHADONE HCL 5 MG TABLET PO ONE (10:00)
[2019-05-27 11:20] LABS: ANISOCYTOSIS 1+; MACROCYTOSIS 0; OVALOCYTE 1+; PLATELET ESTIMATE DECREASED; TEAR DROP CELLS 1+
--- NOTE | 2019-05-27 11:54 | PN ---
Physical Exam: SUBJECTIVE: Patient seen and examined at bedside. Pt was emotional and remorseful for drug abuse and poor compliance for HIV f/u. Encouraged to follow up outpt. Stressed importance of HIV treatmen. OBJECTIVE: Vital Signs Period Temp Pulse Resp BP Sys/Bradford Pulse Ox Last 24 Hr 98.2 F-98.9 F 75-86 18-20 100-127/50-89 100 Gen: NAD, anxious appearing, AAOx3, poor hygiene. HEENT: NCAT, EOMI Neck: supple, no jvd Cardio: rrr, norm s1s2, no mrg Pulm: cta b/l Abd: soft, nontender, nondistended, scrotum erythematous Ext: 1+ edema b/l, poor hygiene Laboratory Results - last 24 hr 05/26/19 05/27/19 05/27/19 06:45 06:40 06:50 WBC 2.4 L RBC 2.85 L Hgb 8.4 L Hct 24.2 L MCV 85.0 MCH 29.6 MCHC 34.8 RDW 15.6 Plt Count 124 L MPV 8.3 Absolute Neuts (auto) 1.7 Neutrophils % 74.1 Neutrophils % (Manual) 84.7 H 68.4 Band Neutrophils % 0.0 0.0 Lymphocytes % 13.0 Lymphocytes % (Manual) 9.2 D 11.6 D Monocytes % 7.0 D Monocytes % (Manual) 2 L 7 D Eosinophils % 5.4 H D Eosinophils % (Manual) 3.1 10.5 H D Basophils % 0.5 Basophils % (Manual) 0.0 0.0 Myelocytes % (Man) 0 0 Promyelocytes % (Man) 0 0 Blast Cells % (Manual) 0 0 Nucleated RBC % 0 Metamyelocytes 0 0 Hypochromia 0 0 Platelet Estimate Decreased Decreased Platelet Comment Present Polychromasia 0 0 Poikilocytosis 1+ 2+ Anisocytosis 1+ 1+ Microcytosis 1+ 1+ Macrocytosis 0 0 Spherocytes 1+ Tear Drop Cells 1+ 1+ Ovalocytes 1+ 1+ Schistocytes 1+ Sodium 134 L Potassium 3.7 Chloride 101 Carbon Dioxide 24 Anion Gap 9 BUN 8.8 Creatinine 0.6 Est GFR (CKD-EPI)AfAm 132.11 Est GFR (CKD-EPI)NonAf 113.99 Random Glucose 80 Calcium 7.5 L Phosphorus 3.1 Magnesium 2.0 Total Bilirubin 0.4 AST 26 ALT 15 Alkaline Phosphatase 56 Total Protein 6.4 Albumin 2.3 L Active Medications Generic Name Dose Route Start Last Admin Trade Name Alvarez PRN Reason Stop Dose Admin Clonidine 0.1 mg 05/26/19 16:32 Catapres - PO 05/27/19 23:59 Q4H PRN Withdrawal Symptoms Heparin Sodium (Porcine) 5,000 unit 05/25/19 06:00 05/27/19 05:47 Heparin - SQ 5,000 unit TID TAMERA Administration Sodium Chloride 1,000 mls @ 100 mls/hr 05/25/19 02:30 05/27/19 05:44 Normal Saline - IV 100 mls/hr ASDIR TAMERA Administration Ceftriaxone Sodium 2 gm/ 100 mls @ 200 mls/hr 05/25/19 17:15 05/27/19 09:18 Dextrose IVPB 200 mls/hr DAILY TAMERA Administration Protocol Lorazepam 0.5 mg 05/25/19 17:47 Ativan Injection - IVPUSH 05/25/19 17:48 ASDIR ONE Methadone HCl 10 mg 05/28/19 10:00 Dolophine - PO 05/28/19 10:01 ONCE ONE Methadone HCl 5 mg 05/29/19 06:00 Dolophine - PO 05/29/19 06:01 ONCE ONE Nystatin 500,000 units 05/25/19 06:00 05/27/19 11:43 Nystatin Oral Suspension - PO 500,000 units Q6HPO TAMERA Administration Potassium Phos/Sodium Phos 2 packet 05/26/19 22:00 05/27/19 09:18 Phos-Nak Packet - PO 05/28/19 10:01 2 packet BID TAMERA Administration ASSESSMENT/PLAN: 54 yom with PMHx of HIV (dx over 10 years ago) not on HAART, Hep C (untreated), polysubstance abuse/IVDU (reported daily 2-3 bags heroine, crack cocaine, alcohol, tobacco) sent from [facility] with fevers and urinary symptoms. -Sepsis -leukopenia, anemia ? 2/2 HIV status -Complicated UTI with prostatic abscess vs necrotic prostatic nodule on CT -HIV not on HAART, r/o AIDS -Hepatitis C -Polysubstance abuse/IVDU (reported daily 2-3 bags heroine, crack cocaine, alcohol, tobacco) Plan: CT A/P rssults noted, discussed with Dr. Pulido and Dr. Oneil, follow up recs. Abx changed to ceftriaxone Per ID. Follow up cultures, ongoing fevers. UCx presumptive MSSA Detox consult pending IVF DVTPPX lovenox Visit type - Emergency Visit Emergency Visit: No - New Patient This patient is new to me today: Yes Date on this admission: 05/27/19 - Critical Care Critical Care patient: No ATTENDING PHYSICIAN STATEMENT I saw and evaluated the patient. I reviewed the resident's note and discussed the case with the resident. I agree with the resident's findings and plan as documented. SUBJECTIVE: OBJECTIVE: ASSESSMENT AND PLAN:
--- NOTE | 2019-05-27 13:05 | PN ---
Teaching Attending Note Name of Resident: Stewart Downing ATTENDING PHYSICIAN STATEMENT I saw and evaluated the patient. I reviewed the resident's note and discussed the case with the resident. I agree with the resident's findings and plan as documented with exceptions below. SUBJECTIVE: Patient esen and examined, feels better, no complaints. OBJECTIVE: Vital Signs Period Temp Pulse Resp BP Sys/Bradford Pulse Ox Last 24 Hr 98.2 F-98.9 F 75-86 18-20 100-127/50-89 100 Intake & Output 05/24/19 05/25/19 05/26/19 05/27/19 23:59 23:59 23:59 23:59 Intake Total 350 900 537 Balance 350 900 537 Weight 195 lb 145 lb 147 lb GENERAL: lying in bed, no acute distress Neck: soft, supple, no JVD HEENT: PERRL, EOMI CVS:S1s2 regular Chest: distant breath sounds all over, no rales or wheezing appreciated Abdomen: midline healed vertical scar, isolated suture in upper abdomen (per patient has been in place for ?25 years after surgery in [place]), Non tender,ND, pos bowel sounds, no voluntary or involuntary guarding or rigidity Genital right scrotum multiple 1 cm incisions with bleeding, induration with ecchymosis on left inner thigh Extremities: no edema or limitation of ROM, pos pulses Home Medications Medication Instructions Recorded NK [No Known Home Medication] 02/19/19 Active Medications Clonidine (Catapres -) 0.1 mg PO Q4H PRN PRN Reason: Withdrawal Symptoms Stop: 05/27/19 23:59 Heparin Sodium (Porcine) (Heparin -) 5,000 unit SQ TID TAMERA Last Admin: 05/27/19 05:47 Dose: 5,000 unit Sodium Chloride (Normal Saline -) 1,000 mls @ 100 mls/hr IV ASDIR TAMERA Last Admin: 05/27/19 05:44 Dose: 100 mls/hr Ceftriaxone Sodium 2 gm/ (Dextrose) 100 mls @ 200 mls/hr IVPB DAILY [facility]; Protocol Last Admin: 05/27/19 09:18 Dose: 200 mls/hr Lorazepam (Ativan Injection -) 0.5 mg IVPUSH ASDIR ONE Stop: 05/25/19 17:48 Methadone HCl (Dolophine -) 10 mg PO ONCE ONE Stop: 05/28/19 10:01 Methadone HCl (Dolophine -) 5 mg PO ONCE ONE Stop: 05/29/19 06:01 Nystatin (Nystatin Oral Suspension -) 500,000 units PO Q6HPO [facility] Last Admin: 05/27/19 11:43 Dose: 500,000 units Potassium Phos/Sodium Phos (Phos-Nak Packet -) 2 packet PO BID TAMERA Stop: 05/28/19 10:01 Last Admin: 05/27/19 09:18 Dose: 2 packet Laboratory Results - last 24 hr 05/26/19 05/27/19 05/27/19 06:45 06:40 06:50 WBC 2.4 L RBC 2.85 L Hgb 8.4 L Hct 24.2 L MCV 85.0 MCH 29.6 MCHC 34.8 RDW 15.6 Plt Count 124 L MPV 8.3 Absolute Neuts (auto) 1.7 Neutrophils % 74.1 Neutrophils % (Manual) 84.7 H 68.4 Band Neutrophils % 0.0 0.0 Lymphocytes % 13.0 Lymphocytes % (Manual) 9.2 D 11.6 D Monocytes % 7.0 D Monocytes % (Manual) 2 L 7 D Eosinophils % 5.4 H D Eosinophils % (Manual) 3.1 10.5 H D Basophils % 0.5 Basophils % (Manual) 0.0 0.0 Myelocytes % (Man) 0 0 Promyelocytes % (Man) 0 0 Blast Cells % (Manual) 0 0 Nucleated RBC % 0 Metamyelocytes 0 0 Hypochromia 0 0 Platelet Estimate Decreased Decreased Platelet Comment Present Polychromasia 0 0 Poikilocytosis 1+ 2+ Anisocytosis 1+ 1+ Microcytosis 1+ 1+ Macrocytosis 0 0 Spherocytes 1+ Tear Drop Cells 1+ 1+ Ovalocytes 1+ 1+ Schistocytes 1+ Sodium 134 L Potassium 3.7 Chloride 101 Carbon Dioxide 24 Anion Gap 9 BUN 8.8 Creatinine 0.6 Est GFR (CKD-EPI)AfAm 132.11 Est GFR (CKD-EPI)NonAf 113.99 Random Glucose 80 Calcium 7.5 L Phosphorus 3.1 Magnesium 2.0 Total Bilirubin 0.4 AST 26 ALT 15 Alkaline Phosphatase 56 Total Protein 6.4 Albumin 2.3 L Microbiology 05/24/19 22:45 Urine - Urine Clean Catch Urine Culture - Final Staphylococcus Aureus 05/24/19 22:00 Blood - Peripheral Venous Blood Culture - Preliminary NO GROWTH OBTAINED AFTER 48 HOURS, INCUBATION TO CONTINUE FOR 3 DAYS. 05/24/19 22:40 Blood - Peripheral Venous Blood Culture - Preliminary NO GROWTH OBTAINED AFTER 48 HOURS, INCUBATION TO CONTINUE FOR [address] A/P results reviewed ASSESSMENT AND PLAN: 54 yom with PMHx of HIV (dx over 10 years ago) not on HAART, Hep C (untreated), polysubstance abuse/IVDU (reported daily 2-3 bags heroine, crack cocaine, alcohol, tobacco) sent from [facility] with fevers and urinary symptoms. -Sepsis, -Complicated UTI with prostatic abscess vs necrotic prostatic nodule -HIV not on HAART, r/o AIDS -Hepatitis C -Polysubstance abuse/IVDU (reported daily 2-3 bags heroine, crack cocaine, alcohol, tobacco) Plan: CT A/P rssults noted, discussed with Dr. Pulido and Dr. Oneil, follow up recs. Abx changed to ceftriaxone. fevers improved, symptoms better. Follow up cultures. Detox consult, Placed on methadone detox taper. IVF DVTPPX lovenox Dispo plan for return to [facility] if fevers resolved, pending ID/urology input. Discussed with patient, and nursing, all questions answered.
--- NOTE | 2019-05-27 17:47 | CON.GU ---
Consult - History of Present Illness History of Present Illness: 54 yo male admitted with fever, pyuria and prostate abscess on scan, responding well to antibiotics - Alcohol/Substance Use Hx Alcohol Use: No - Smoking History Smoking history: Unknown if ever smoked Have you smoked in the past 12 months: No Aproximately how many cigarettes per day: 3 Home Medications - Allergies Allergies/Adverse Reactions: Allergies Allergy/AdvReac Type Severity Reaction Status Date / Time No Known Allergies Allergy Verified 05/24/19 20:35 - Home Medications Home Medications: Ambulatory Orders NK [No Known Home Medication] 02/19/19 Family Disease History - Family Disease History Family Disease History: Diabetes: Father (ALCOHOL), Brother, Other: Father Physical Exam- Vital Signs: Vital Signs Temperature 97.4 F L 05/27/19 17:13 Pulse Rate 75 05/27/19 17:13 Respiratory Rate 18 05/27/19 17:13 Blood Pressure 108/69 05/27/19 17:13 O2 Sat by Pulse Oximetry (%) 100 05/27/19 09:16 Labs: CBC, BMP 05/27/19 06:40 05/27/19 06:50 Imaging - Results Cat Scan: Report Reviewed Problem List - Problems (1) Prostate abscess Assessment/Plan: cont antibiotics, will need prolonged course of 4-6weeks Code(s): N41.2 - ABSCESS OF PROSTATE
[2019-05-28] MEDS: NYSTATIN 500,000 UNITS/5 ML SUSPENSION PO SCH ×4 (01:09→17:05)
[2019-05-28] MEDS: HEPARIN NA (PORCINE) 5,000 UNITS/ML 1ML VIAL SQ SCH ×3 (05:47→22:01)
[2019-05-28] MEDS: SODIUM CHLORIDE 1,000 ML IV SCH (05:51)
[2019-05-28] MEDS ORDERED: DEXTROSE 5%-WATER 100 ML IVPB ONE (08:55)
[2019-05-28] MEDS: NAPH,MB-DB/K PH,MBDB POWDER PACKET PO SCH (09:02)
[2019-05-28] MEDS: CEFTRIAXONE 2 GM in DEXTROSE 5%-WATER 100 ML IVPB SCH (09:02)
[2019-05-28] MEDS ORDERED: METHADONE HCL 10 MG TABLET PO ONE (10:00)
--- NOTE | 2019-05-28 10:19 | PN ---
S Progress Note (SOAP) Subjective: 54 y.o. male w/ PMHx of HIV (dx over 10 years ago) not on HAART, Hep C ( untreated), polysubstance abuse/IVDU (reported daily 2-3 bags heroine, crack cocaine, alcohol, tobacco) , dx w/ Sepsis, Complicated UTI with prostatic abscess vs necrotic prostatic nodule, AIDS not on HAART , currently on IV ABx , Methadone taper , prn Lorazepam . Active Medications Heparin Sodium (Porcine) (Heparin -) 5,000 unit SQ TID TAMERA Last Admin: 05/28/19 05:47 Dose: Not Given Sodium Chloride (Normal Saline -) 1,000 mls @ 100 mls/hr IV ASDIR TAMERA Last Admin: 05/28/19 05:51 Dose: Not Given Ceftriaxone Sodium 2 gm/ (Dextrose) 100 mls @ 200 mls/hr IVPB DAILY TAMERA; Protocol Last Admin: 05/28/19 09:02 Dose: 200 mls/hr Lorazepam (Ativan Injection -) 0.5 mg IVPUSH ASDIR ONE Stop: 05/25/19 17:48 Methadone HCl (Dolophine -) 5 mg PO ONCE ONE Stop: 05/29/19 06:01 Nystatin (Nystatin Oral Suspension -) 500,000 units PO Q6HPO TAMERA Last Admin: 05/28/19 05:47 Dose: 500,000 units Objective: 05/28/19 10:18 wnwd , ambulatory , reports nausea , JIMÉNEZ / sensitivity to lights . CBC, BMP 05/27/19 06:40 05/27/19 06:50 Abnormal Lab Results 05/24/19 05/25/19 05/27/19 22:40 15:00 06:40 WBC 2.5 L Absolute Lymphs (auto) 0.2 L Eosinophils % (Manual) 10.5 H D Absolute CD3 Count 123 L Absolute CD4 [place] 3 L % CD4+ Lymphocyte 1.3 L CD4/CD8 Ratio 0.02 L % CD8+ Lymphocyte 56.1 H HIV-1 Antibody Positive H HIV 1&2 Ag/Ab, 4th Gen Reactive H Assessment: 05/28/19 10:19 Opioid dependence Plan: pt to complete Methadone taper 05/29/19 , possible transfer to SNF . pt agreeable for rehab when medically stable
--- NOTE | 2019-05-28 12:07 | PN ---
Teaching Attending Note Name of Resident: Stewart Downing ATTENDING PHYSICIAN STATEMENT I saw and evaluated the patient. I reviewed the resident's note and discussed the case with the resident. I agree with the resident's findings and plan as documented with exceptions below. SUBJECTIVE: Patient seen and examined, doing well, no complaints. OBJECTIVE: Vital Signs Period Temp Pulse Resp BP Sys/Bradford Pulse Ox Last 24 Hr 97.4 F-97.7 F 74-75 16-18 97-109/48-69 100-100 Intake & Output 05/25/19 05/26/19 05/27/19 05/28/19 23:59 23:59 23:59 23:59 Intake Total 273 150 8564 400 Balance 832 681 5605 400 Weight 145 lb 147 lb GENERAL: lying in bed, no acute distress Neck: soft, supple, no JVD HEENT: PERRL, EOMI CVS:S1s2 regular Chest: distant breath sounds all over, no rales or wheezing appreciated Abdomen: midline healed vertical scar, isolated suture in upper abdomen (per patient has been in place for ?25 years after surgery in [place]), Non tender,ND, pos bowel sounds, no voluntary or involuntary guarding or rigidity Genital right scrotum multiple 1 cm incisions with bleeding, induration with ecchymosis on left inner thigh Extremities: no edema or limitation of ROM, pos pulses Laboratory Results - last 24 hr 05/24/19 05/25/19 22:40 15:00 WBC 2.5 L Absolute Lymphs (auto) 0.2 L Lymphocytes 8 Nucleated RBCs TNP Absolute CD3 Count 123 L % CD3+ Lymphocytes 61.5 Absolute CD4 [place] 3 L % CD4+ Lymphocyte 1.3 L CD4/CD8 Ratio 0.02 L % CD8+ Lymphocyte 56.1 H Absolute CD8 Count 112 HIV-1 Antibody Positive H HIV Ag/Ab Interpret Hiv-1 positive HIV-2 Antibody Negative HIV 1&2 Ag/Ab, 4th Gen Reactive H Microbiology 05/24/19 22:00 Blood - Peripheral Venous Blood Culture - Preliminary NO GROWTH OBTAINED AFTER 72 HOURS, INCUBATION TO CONTINUE FOR 2 DAYS. 05/24/19 22:40 Blood - Peripheral Venous Blood Culture - Preliminary NO GROWTH OBTAINED AFTER 72 HOURS, INCUBATION TO CONTINUE FOR 2 DAYS. 05/24/19 22:45 Urine - Urine Clean Catch Urine Culture - Final Staphylococcus Aureus CT A/P results reviewed ASSESSMENT AND PLAN: 54 yom with PMHx of HIV (dx over 10 years ago) not on HAART, Hep C (untreated), polysubstance abuse/IVDU (reported daily 2-3 bags heroine, crack cocaine, alcohol, tobacco) sent from [facility] with fevers and urinary symptoms. -Sepsis, -Complicated UTI with prostatic abscess vs necrotic prostatic nodule -AIDS not on HAART -Hepatitis C -Polysubstance abuse/IVDU (reported daily 2-3 bags heroine, crack cocaine, alcohol, tobacco) Plan: CT A/P rssults noted,Urology input noted. Urine cx with MSSA. Discussed with , plan for bactrim for 4-6 weeks, will follow up. CD4 3. Plan for [facility] registration representative to speak with patient prior to dc to arrange outpatient follow up. On methadone taper, detox input. Discussed with Dr. Elizalde, patient has one more dose methadone left, recommend inpatient monitoring with d/c to [facility] vs SNF based on clinical needs. dc IVF. DVTPPX lovenox PT eval. Dispo to [facility] vs SNF pending disposition arrangements if no concerns. Discussed with patient, and nursing, all questions answered. Care co-ordinated with ID/Detox
--- NOTE | 2019-05-28 17:10 | PN ---
<Stewart Downing - Last Filed: 05/28/19 17:10> Physical Exam: SUBJECTIVE: Patient seen and examined at bedside. No acute events. OBJECTIVE: Vital Signs Period Temp Pulse Resp BP Sys/Bradford Pulse Ox Last 24 Hr 97.4 F-98.2 F 74-78 16-20 97-109/48-69 100-100 Gen: NAD, anxious appearing, AAOx3, poor hygiene. HEENT: NCAT, EOMI Neck: supple, no jvd Cardio: rrr, norm s1s2, no mrg Pulm: cta b/l Abd: soft, nontender, nondistended, scrotum erythematous Ext: 1+ edema b/l, poor hygiene Laboratory Results - last 24 hr 05/24/19 22:40 HIV-1 Antibody Positive H HIV Ag/Ab Interpret Hiv-1 positive HIV-2 Antibody Negative HIV 1&2 Ag/Ab, 4th Gen Reactive H Active Medications Generic Name Dose Route Start Last Admin Trade Name Freq PRN Reason Stop Dose Admin Heparin Sodium (Porcine) 5,000 unit 05/25/19 06:00 05/28/19 13:27 Heparin - SQ Not Given TID [facility] Ceftriaxone Sodium 2 gm/ 100 mls @ 200 mls/hr 05/25/19 17:15 05/28/19 09:02 Dextrose IVPB 200 mls/hr DAILY TAMERA Administration Protocol Methadone HCl 5 mg 05/29/19 06:00 Dolophine - PO 05/29/19 06:01 ONCE ONE Nystatin 500,000 units 05/25/19 06:00 05/28/19 11:50 Nystatin Oral Suspension - PO 500,000 units Q6HPO TAMERA Administration ASSESSMENT/PLAN: 54 yom with PMHx of HIV (dx over 10 years ago) not on HAART, Hep C (untreated), polysubstance abuse/IVDU (reported daily 2-3 bags heroine, crack cocaine, alcohol, tobacco) sent from [facility] with fevers and urinary symptoms. #Complicated UTI with prostatic abscess vs necrotic prostatic nodule on CT -Septic on presentation -2/2 UTI procatitis with prostate abscess -now afebrile and leukopenic -ABx per ID. on Rocephin #HIV not on HAART, r/o AIDS -leukopenia, anemia -[facility] was called today for outpt follow up #Hepatitis C -will need treatment outpt #Polysubstance abuse/IVDU (reported daily 2-3 bags heroine, crack cocaine, alcohol, tobacco) -last dose of methadone detox tomorrow -d/w Dr. Elizalde Visit type - Emergency Visit Emergency Visit: No - New Patient This patient is new to me today: No - Critical Care Critical Care patient: No ATTENDING PHYSICIAN STATEMENT I saw and evaluated the patient. I reviewed the resident's note and discussed the case with the resident. I agree with the resident's findings and plan as documented. SUBJECTIVE: OBJECTIVE: ASSESSMENT AND PLAN: <Avila Chung - Last Filed: 05/30/19 09:24> Physical Exam: Seen and examined; agree with above aside from aside from as supplemented in my own documentation. ATTENDING PHYSICIAN STATEMENT I saw and evaluated the patient. I reviewed the resident's note and discussed the case with the resident. I agree with the resident's findings and plan as documented. SUBJECTIVE: OBJECTIVE: ASSESSMENT AND PLAN:
--- NOTE | 2019-05-28 19:25 | PN ---
Progress Note, Physician History of Present Illness: MORE AWAKE AND ALERT C/O SUPAPUBIC DISCOMFORT URINE C/S MSSA BC (-) PT NOW REPORTS KNOWING OF HIS HIV+ STATUS FOR THE PAST 3-4YR NOT ON ART BY CHOICE BUT NOW WILLING TO START CD4 3 - Current Medication List Current Medications: Active Medications Heparin Sodium (Porcine) (Heparin -) 5,000 unit SQ TID [facility] Last Admin: 05/28/19 13:27 Dose: Not Given Ceftriaxone Sodium 2 gm/ (Dextrose) 100 mls @ 200 mls/hr IVPB DAILY [facility]; Protocol Last Admin: 05/28/19 09:02 Dose: 200 mls/hr Methadone HCl (Dolophine -) 5 mg PO ONCE ONE Stop: 05/29/19 06:01 Nystatin (Nystatin Oral Suspension -) 500,000 units PO Q6HPO [facility] Last Admin: 05/28/19 17:05 Dose: 500,000 units - Objective Vital Signs: Vital Signs Temperature 98.2 F 05/28/19 14:20 Pulse Rate 78 05/28/19 14:20 Respiratory Rate 20 05/28/19 14:20 Blood Pressure 99/60 05/28/19 14:20 O2 Sat by Pulse Oximetry (%) 100 05/28/19 09:00 Constitutional: Yes: No Distress Cardiovascular: Yes: Regular Rate and Rhythm, S1, S2 Respiratory: Yes: CTA Bilaterally Gastrointestinal: Yes: Soft, Other (SUPRAPUBIC TENDERNESS) Labs: CBC, BMP 05/27/19 06:40 05/27/19 06:50 INR, PTT INR 1.12 (0.83-1.09) H 05/24/19 22:40 Assessment/Plan PROSTATIC ABSCESS V. NECROTIC NODULE + URINE C/S MSSA HIV/AIDS SUBSTITUTE BACTRIM DS PO BID FOR 4-6W FOR POSSIBLE PROSTATIC ABSCESS PSA WILL NEED F/U IMAGING AND BX IF NO IMPROVEMENT PT WILLING TO START ART F/U [facility] POST DISCHARGE F/U WILL BE CHALLENGING PT IS HOMELESS [facility] INTERVENTION REQUESTED
[2019-05-28] MEDS: SULFAMETHOXAZOLE/TRIMETHOPRIM 800MG/160MG D.S. TABLET PO SCH (22:01)
[2019-05-29] MEDS ORDERED: ACETAMINOPHEN 325 MG TABLET (FP) PO ONE (00:16)
[2019-05-29] MEDS: NYSTATIN 500,000 UNITS/5 ML SUSPENSION PO SCH ×4 (01:32→17:04)
[2019-05-29] MEDS: HEPARIN NA (PORCINE) 5,000 UNITS/ML 1ML VIAL SQ SCH ×3 (05:42→21:31)
[2019-05-29] MEDS ORDERED: METHADONE HCL 5 MG TABLET PO ONE (06:00)
[2019-05-29] MEDS: SULFAMETHOXAZOLE/TRIMETHOPRIM 800MG/160MG D.S. TABLET PO SCH ×2 (09:30→21:30)
[2019-05-29] MEDS: GABAPENTIN 100 MG CAPSULE (FP) PO SCH ×2 (11:15→21:30)
[2019-05-29] MEDS: DOLUTEGRAVIR SODIUM 50 MG TABLET (NON-FORMULARY) PO SCH (13:18)
[2019-05-29] MEDS: EMTRICITABINE 200MG/TENOFOVIR 300MG PO SCH (13:18)
--- NOTE | 2019-05-29 15:20 | PN ---
Teaching Attending Note Name of Resident: Stewart Downing ATTENDING PHYSICIAN STATEMENT I saw and evaluated the patient. I reviewed the resident's note and discussed the case with the resident. I agree with the resident's findings and plan as documented. Seen and examined; low grade temp (no true fever) noted ON. Will discuss with ID/Uro. Stable for DC otherwise. Refused labs this AM. Denies abdominal pain , dysuria, or diarrhea. 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 10 sys ROS done and negative aside from HPI VS, labs, imaging reviewed NAD, AAO, resting in bed NC AT EOMI PERRLA RRR s1/2 no jet murmurs Lungs CTAB, w/ sym exp NT ND +BS CN2-12 wnl, no fnd. ASSESSMENT AND PLAN: Patient presents with likely prostatic abscess; he is being followed by urology and ID. He will require prolonged abx course with 6 weeks of Bactrim. His course is complicated by his underlying HIV for which he was started on HAART by Dr. Oneil and he will need continual followup with the [facility]. Cell counts noted. If he has any decompensation in terms of sympomatolgy from his prostatic abscess he will need potential for biopsy/further eval from urology. Urine culture is growing MSSA. Problem list includes: -Likely prostatic abscess -HIV on HAART -Noncompliance -Neuropathy likely 2/2 HIV Full Code Will discuss discharge options with [facility]; if he has a bed available he will be able to go back to their facility today. If not, as he has already completed inpatient detox he can go to other facilities in the area for rehab. This was discussed with case management/social work and they will provide a list of rehabs in the area if needed.
[2019-05-30] MEDS: NYSTATIN 500,000 UNITS/5 ML SUSPENSION PO SCH ×3 (01:54→13:09)
[2019-05-30] MEDS: HEPARIN NA (PORCINE) 5,000 UNITS/ML 1ML VIAL SQ SCH ×2 (07:01→14:42)
--- NOTE | 2019-05-30 09:25 | PN ---
Teaching Attending Note Name of Resident: Stewart Downing ATTENDING PHYSICIAN STATEMENT I saw and evaluated the patient. I reviewed the resident's note and discussed the case with the resident. I agree with the resident's findings and plan as documented. Seen and examined; no new complaints. Did not leave yesterday for unclear reason. Was noted to have low grade temps recurring overnight; should have OP TB test done (followup with ID/PCP). No beds available at [facility]. He was presented with options for OP rehabilitation and chose to become obscene with [facility]. He will need close OP followup. Discharge instructions provided at length in Romanian. He is a high risk for bounce back due to his ongoing issues with drug use/relapses and his chronic ongoing medical issues that could be further marred by noncompliance. He has benefitted maximally from this hospitalization. Discharge order was written at 5PM. VS, labs, imaging reviewed NAD, AAO, resting in bed NC AT EOMI PERRLA RRR s1/2 no jet murmurs Lungs CTAB, w/ sym exp NT ND +BS CN2-12 wnl, no fnd. ASSESSMENT AND PLAN: Patient presents with likely prostatic abscess; he is being followed by urology and ID. He will require prolonged abx course with 6 weeks of Bactrim. His course is complicated by his underlying HIV for which he was started on HAART by Dr. Oneil and he will need continual followup with the [facility]. Cell counts noted. If he has any decompensation in terms of sympomatolgy from his prostatic abscess he will need potential for biopsy/further eval from urology. Urine culture is growing MSSA. Problem list includes: -Likely prostatic abscess -HIV on HAART -Noncompliance -Neuropathy likely 2/2 HIV New Medications will be reconciled and will be placed on addendum to note Followup visits: -PCP (referred to resident clinic): 3-5 days -[facility] (For ongoing HAART/HIV Care): 1-2 weeks -Urology: 1-2 weeks Followup Diet: Resume Home diet No activity restrictions noted May return to work as tolerated Full Code
[2019-05-30] MEDS ORDERED: PT OWN MED DRAWER 7, Y5N ONE (10:14)
[2019-05-30] MEDS: SULFAMETHOXAZOLE/TRIMETHOPRIM 800MG/160MG D.S. TABLET PO SCH (10:15)
[2019-05-30] MEDS: GABAPENTIN 100 MG CAPSULE (FP) PO SCH (10:15)
[2019-05-30] MEDS: DOLUTEGRAVIR SODIUM 50 MG TABLET (NON-FORMULARY) PO SCH (10:16)
[2019-05-30] MEDS: EMTRICITABINE 200MG/TENOFOVIR 300MG PO SCH (10:16)
[2019-05-30 13:29] VITALS: BP 106/65; PULSE 90; TEMP 98.2
--- NOTE | 2019-05-31 13:58 | DS ---
Physical Exam: SUBJECTIVE: Patient seen and examined. OBJECTIVE: PHYSICAL EXAM Gen: NAD, anxious appearing, AAOx3, poor hygiene. HEENT: NCAT, EOMI Neck: supple, no jvd Cardio: rrr, norm s1s2, no mrg Pulm: cta b/l Abd: soft, nontender, nondistended, scrotum erythematous Ext: 1+ edema b/l, poor hygiene LABS HOSPITAL COURSE: Date of Admission:05/25/19 Date of Discharge: 05/31/19 54 yom with PMHx of HIV (dx over 10 years ago) not on HAART, Hep C (untreated), polysubstance abuse/IVDU (reported daily 2-3 bags heroine, crack cocaine, alcohol, tobacco) sent from [facility] with fevers and urinary symptoms. The patient was admitted with Complicated UTI with prostatic abscess vs necrotic prostatic nodule on CT. He was Septic on presentation likely 2/2 UTI procatitis with prostate abscess. He was treated with IV Abx and his symptoms resolved. He was seen by ID. The patient carries a diagnosis of HIV but was not on HAART. He was leukopenic and anemic. He was started on ART and was given follow up with [facility] who were made aware of the patient. The patient's Hepatitis C was discussed with him, and he was counseled about the importance of good follow up. He was given contact info for out pt GI and PCP. Pt stated understanding. For his Polysubstance abuse/IVDU (reported daily 2-3 bags heroine, crack cocaine , alcohol, tobacco), he was completed on methadone detox and sent to [facility] for rehab. He was seen by the Addiction Medicine specialist. Minutes to complete discharge: 30 Discharge Summary Reason For Visit: URINARY TRACT INFECTION,HUMAN IMMONODEFICIENCY Condition: Stable - Instructions Diet, Activity, Other Instructions: You were in the hospital because of fever. You need to follow up with the following doctors: Your primary care doctor. If you do not have a primary care doctor, you can see Dr. Downing at the [facility]. You should follow up within 3-[address] Elizalde, Addiction Medicine Dr. Pulido, Urology Dr. Dow, Infectious Diseases You should also make an appointment to follow up at the [facility]. [address], [place] [id number] You need to follow up so that you can start your antiretroviral medication as you discussed with your doctor in the hospital. You are being sent home with the following new medications: Bactrim 1 tab twice daily for 4 weeks. You need to check your blood work for kidney function and potassium level while on this medication. Gabapentin 100mg twice daily Nystatin Oral suspension. Take 5 mL and swish in your mouth for about 30 seconds. Then spit it out. Do this 3 times daily. Until you see your doctor. Truvada 1 tab daily. It is very important that you take this medication every day. Tivicay 50mg daily. It is very important that you take this medication every day. You were given a list of options for inpatient rehab should you choose to pursue that route. If your symptoms get worse, call your doctor or return to the emergency department. Referrals: Fabrizio Pulido MD [Staff Physician] - Abbey Sanchez MD [Staff Physician] - Stewart Downing RES [Resident] - Tawnya Elizalde DO [Staff Physician] - Disposition: I.P. ALCOHOL/SUBS ABUSE REHAB - Home Medications Comprehensive Discharge Medication List: Ambulatory Orders Dolutegravir Sodium [Tivicay] 50 mg PO DAILY #30 tablet 05/29/19 Emtricitabine/Tenofovir [Truvada -] 1 tab PO DAILY #30 tablet 05/29/19 Gabapentin [Neurontin -] 100 mg PO BID #30 capsule 05/29/19 Nystatin Oral Suspension - [Nystatin Oral Susp [id number] Units/5 ML -] 500,000 units PO Q6HPO #1 bottle 05/29/19 Sulfamethoxazole/Trimethoprim [Bactrim DS -] 1 each PO BID #56 tablet 05/29/19 This patient is new to me today: No Emergency Visit: No Critical Care patient: No - Discharge Referral Referred to [facility] Med P.C.: No ATTENDING PHYSICIAN STATEMENT I saw and evaluated the patient. I reviewed the resident's note and discussed the case with the resident. I agree with the resident's findings and plan as documented. SUBJECTIVE: OBJECTIVE: ASSESSMENT AND PLAN:
== END 2019-05-30 18:09 | disposition other institution (70) | DRG 892 ==
LOC: JER 20:32 → JERBED 05-25 01:49 → J7W 05-25 07:54
PROVIDERS: ADMIT Internal Medicine; ATTEND Internal Medicine
DX: A41.9 Sepsis, unspecified organism (principal); B37.0 Candidal stomatitis; E46 Unspecified protein-calorie malnutrition; E88.09 Other disorders of plasma-protein metabolism, not elsewhere classified; E83.39 Other disorders of phosphorus metabolism; F11.20 Opioid dependence, uncomplicated; B20 Human immunodeficiency virus [HIV] disease; Z59.0 Homelessness; N39.0 Urinary tract infection, site not specified; B19.20 Unspecified viral hepatitis C without hepatic coma; D64.9 Anemia, unspecified; E87.6 Hypokalemia; F17.210 Nicotine dependence, cigarettes, uncomplicated; N41.2 Abscess of prostate; B95.61 Methicillin susceptible Staphylococcus aureus infection as the cause of diseases classified elsewhere; Z91.19 Patient's noncompliance with other medical treatment and regimen; G62.9 Polyneuropathy, unspecified; F10.10 Alcohol abuse, uncomplicated; Z68.20 Body mass index [BMI] 20.0-20.9, adult; E72.20 Disorder of urea cycle metabolism, unspecified
CPT/HCPCS: 36415; 71045-TC-FY; 74177-TC; 80048; 80053; 80076; 81003; 82140; 82550; 82728; 82803; 83540; 83550; 83605; 83735; 84100; 84484; 85025; 85610; 85730; 86359; 86360; 86850; 86900; 86901; 87040; 87086; 87186; 87389; 93005; 93010; 99284-25; J0131; J1644; J7030

== ENCOUNTER 2019-05-30 18:11 | Inpatient (IN) | payer OTHER ==
[2019-05-30 18:53] VITALS: BMI 21.9
[2019-05-30] MEDS ORDERED: guaiFENesin 200 MG/10 ML 10 ML UNIT-DOSE CUPS PO PRN (19:27)
[2019-05-30] MEDS ORDERED: LOPERAMIDE HCL 2 MG CAPSULE PO PRN (19:27)
[2019-05-30] MEDS ORDERED: P-EPHED 60MG/TRIPROLIDI 2.5MG TABLET PO PRN (19:27)
[2019-05-30] MEDS ORDERED: MAGNESIUM CITRATE 300 ML BOTTLE PO PRN (19:27)
[2019-05-30] MEDS ORDERED: IBUPROFEN 400 MG TABLET (FP) PO PRN (19:27)
[2019-05-30] MEDS ORDERED: MAG HYDROX/AL HYDROX/SIMETH 30 ML UNIT-DOSE CUP PO PRN (19:27)
[2019-05-30] MEDS ORDERED: ACETAMINOPHEN 325 MG TABLET (FP) PO PRN (19:27)
[2019-05-30] MEDS ORDERED: MAGNESIUM HYDROX 2400MG/30ML ORAL SUSPENSION 30 ML CUP PO PRN (19:27)
[2019-05-30] MEDS ORDERED: NICOTINE POLACRILEX 2 MG GUM BC PRN (19:27)
[2019-05-30] MEDS ORDERED: MENTHOL/PHENOL 1 EACH UD MM PRN (19:27)
--- NOTE | 2019-05-30 19:27 | HP ---
CIWA Score - Admission Criteria [facility] Guidelines: Admission for Medically Managed Detox: Requires at least one of the followin. CIWA greater than 12 2. Seizures within the past 24 hours 3. Delirium tremens within the past 24 hours 4. Hallucinations within the past 24 hours 5. Acute intervention needed for co occurring medical disorder 6. Acute intervention needed for co occurring psychiatric disorder 7. Severe withdrawal that cannot be handled at a lower level of care (continued vomiting, continued diarrhea, abnormal vital signs) requiring intravenous medication and/or fluids 8. Admission ROS [facility] Chief Complaint: detox from heroin Allergies/Adverse Reactions: Allergies Allergy/AdvReac Type Severity Reaction Status Date / Time No Known Allergies Allergy Verified 05/30/19 18:47 History of Present Illness: 54M w/ pmh of HIV(dx 2004, no meds), HepC(no meds) presenting for detox-rehab from heroin. Heroin(nasal) 3bag daily for 35ys. Has used IV heroin in the past. Last usage ~05/24/19. Denies blackouts. OD'd x2, latest was 2-5ys prior. Tried cocaine but no regular usage. Denies intentional fentanyl, EtOH. Smokes 2cig daily. Last detox in Apr 2019, relapsed after 1d. Substance-free for 1yr during inpatient rehab 2ys prior. Had outpatient methadone clinic 5ys prior. Undomiciled x2ys. Panhandles for money. Patient endorses pain in the gums, crampy shooting pain in BLE. Denies fever, chills, recent IVDU, dysuria, diarrhea. Was admitted at [facility](05/24/19 - 05/30/19) for fever. W/u showed a possible prostatic abscess, UCX growing MSSA. Patient was treated with gabapentin for BLE neuropathy, bactrim for prostatic abscess, nystatin suspension for thrush, truvada and tivicay for HIV. - Ebola screening Have you traveled outside of the country in the last 21 days: No (N) Have you had contact with anyone from an Ebola affected area: No Do you have a fever: No - Review of Systems Constitutional: Chills EENT: reports: Mouth Pain (pain at gums). denies: Blurred Vision, Double Vision , Nose Congestion Respiratory: denies: Cough, Shortness of Breath Cardiac: denies: Chest Pain, Palpitations GI: denies: Constipated, Diarrhea, Nausea, Vomiting : denies: Burning, Dysuria Musculoskeletal: reports: Other (crampy shooting pain in legs). denies: Back Pain Neuro: denies: Headache Hematology: reports: Anemia Psychiatric: denies: Agitated, Anxious Patient History - Patient Medical History Hx Anemia: No Hx Asthma: No Hx Chronic Obstructive Pulmonary Disease (COPD): No Hx Cancer: No Hx Cardiac Disorders: Yes Hx Congestive Heart Failure: No Hx Hypertension: No Hx Hypercholesterolemia: No Hx Pacemaker: No HX Cerebrovascular Accident: No Hx Seizures: No Hx Dementia: No Hx Diabetes: No Hx Gastrointestinal Disorders: No Hx Liver Disease: Yes (Hep C ) Hx Genitourinary Disorders: No Hx Sexually Transmitted Disorders: Yes Hx Renal Disease (ESRD): No Hx Thyroid Disease: No Hx Human Immunodeficiency Virus (HIV): Yes (as per pt 3-4 years) Hx Hepatitis C: Yes (No treatment ) Hx Depression: Yes Hx Suicide Attempt: No Hx Bipolar Disorder: No Hx Schizophrenia: No - Patient Surgical History Past Surgical History: Yes Hx Neurologic Surgery: No Hx Cataract Extraction: No Hx Cardiac Surgery: No Hx Lung Surgery: No Hx Breast Surgery: No Hx Breast Biopsy: No Hx Abdominal Surgery: Yes (peptic ulcer 1994) Hx Appendectomy: No Hx Cholecystectomy: No Hx Genitourinary Surgery: No Hx Section: No Hx Orthopedic Surgery: No Other Surgical History: I&D OF ABSCESS RT. 4TH FINGER. Anesthesia Reaction: No - PPD History Results: CXR neg 12/27 - Smoking Cessation Smoking history: Unknown if ever smoked Have you smoked in the past 12 months: No Aproximately how many cigarettes per day: 3 Cigars Per Day: 0 Hx Chewing Tobacco Use: No - Substances abused Heroin Other (specify): sniff Substance route: Inhalation Frequency: Daily Amount used: 2 bags Age of first use: 15 Date of last use: 05/24/19 Admission Physical Exam [facility] - Vital Signs Vital Signs: Vital Signs - 24 hr 05/30/19 18:43 Temperature 98.5 F Pulse Rate 81 Respiratory 16 Rate Blood Pressure 108/71 - Physical General Appearance: Yes: No Apparent Distress, Thin. No: Irritable, Anxious HEENTM: Yes: MIA. No: Pale Conjunctivae R, Pale Conjunctivae L, Scleral Ictenus R, Scleral Ictenus L Respiratory: Yes: Chest Non-Tender, Lungs Clear, No Respiratory Distress, No Accessory Muscle Use Neck: Yes: No masses,lesions,Nodules, Supple Cardiology: Yes: Regular Rhythm, S1, S2. No: Murmur Abdominal: Yes: Non Tender, Soft, Surgical Scar (blue nylon sutures at midline abd, no surrounding discharge or erythema) Musculoskeletal: Yes: full range of Motion. No: Joint swelling Extremities: No: Calf Tenderness Neurological: Yes: Alert, Other (speaks Maldivian and Citizen Of [place]) Integumentary: Yes: Dry, Warm Cleared for Admission [facility]HS - Detox or Rehab Claeared for Rehab Admission: Yes Breathalyzer - Breathalyzer Breathalyzer: 0 Urine Drug Screen - Test Device Lot number: [id number] Expiration date: 02/08/21 - Control Is test valid?: Yes - Results Drug screen NEGATIVE: No Urine drug screen results: SHUN-Cocaine, FEN-Fentanyl, MOP-Opiates Inpatient Rehab Admission - Rehab Decision to Admit Inpatient rehab admission?: Yes - Initial Determination Are CD services needed?: No Free of communicable disease: Yes Not in need of hospitalization: Yes - Rehab Admission Criteria Previous failed treatment: Yes Poor recovery environment: Yes Comorbidities: Yes Lacks judgement: No Patient is meeting Inpatient Rehab admission criteria:: Yes (h/o of heroin, received methadone at [facility])
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
[2019-05-30] MEDS: SULFAMETHOXAZOLE/TRIMETHOPRIM 800MG/160MG D.S. TABLET PO SCH (22:09)
[2019-05-30] MEDS: GABAPENTIN 100 MG CAPSULE (FP) PO SCH (22:09)
[2019-05-30] MEDS: THIAMINE HCL 100 MG TABLET (FP) PO SCH (22:09)
[2019-05-31] MEDS: NYSTATIN 500,000 UNITS/5 ML SUSPENSION PO SCH ×5 (06:52→23:38)
[2019-05-31] MEDS ORDERED: PT OWN MED DRAWER 7, Y5N ONE (09:06)
[2019-05-31] MEDS: EMTRICITABINE 200MG/TENOFOVIR 300MG PO SCH (10:55)
[2019-05-31] MEDS: DOLUTEGRAVIR SODIUM 50 MG TABLET (NON-FORMULARY) PO SCH (10:56)
[2019-05-31] MEDS: PRENATAL VITAMINS W/ FOLIC ACID TABLET (FP) PO SCH (11:15)
[2019-05-31] MEDS: GABAPENTIN 100 MG CAPSULE (FP) PO SCH ×2 (11:15→21:59)
[2019-05-31] MEDS: SULFAMETHOXAZOLE/TRIMETHOPRIM 800MG/160MG D.S. TABLET PO SCH ×2 (11:15→21:59)
[2019-05-31] MEDS: THIAMINE HCL 100 MG TABLET (FP) PO SCH (21:59)
[2019-06-01] MEDS: NYSTATIN 500,000 UNITS/5 ML SUSPENSION PO SCH ×4 (07:00→23:33)
[2019-06-01] MEDS: PRENATAL VITAMINS W/ FOLIC ACID TABLET (FP) PO SCH (10:57)
[2019-06-01] MEDS: GABAPENTIN 100 MG CAPSULE (FP) PO SCH ×2 (10:57→21:52)
[2019-06-01] MEDS: SULFAMETHOXAZOLE/TRIMETHOPRIM 800MG/160MG D.S. TABLET PO SCH ×2 (10:57→21:51)
[2019-06-01] MEDS: EMTRICITABINE 200MG/TENOFOVIR 300MG PO SCH (10:58)
[2019-06-01] MEDS: DOLUTEGRAVIR SODIUM 50 MG TABLET (NON-FORMULARY) PO SCH (10:58)
[2019-06-01] MEDS: THIAMINE HCL 100 MG TABLET (FP) PO SCH (21:52)
[2019-06-02] MEDS: NYSTATIN 500,000 UNITS/5 ML SUSPENSION PO SCH ×4 (06:40→23:04)
[2019-06-02] MEDS: PRENATAL VITAMINS W/ FOLIC ACID TABLET (FP) PO SCH (09:25)
[2019-06-02] MEDS: SULFAMETHOXAZOLE/TRIMETHOPRIM 800MG/160MG D.S. TABLET PO SCH ×2 (09:25→21:41)
[2019-06-02] MEDS: GABAPENTIN 100 MG CAPSULE (FP) PO SCH ×2 (09:25→21:41)
[2019-06-02] MEDS: DOLUTEGRAVIR SODIUM 50 MG TABLET (NON-FORMULARY) PO SCH (09:26)
[2019-06-02] MEDS: EMTRICITABINE 200MG/TENOFOVIR 300MG PO SCH (09:26)
[2019-06-02] MEDS: THIAMINE HCL 100 MG TABLET (FP) PO SCH (21:41)
[2019-06-02] MEDS: MELATONIN 5 MG TABLETS PO PRN (22:10)
[2019-06-03] MEDS: NYSTATIN 500,000 UNITS/5 ML SUSPENSION PO SCH ×3 (06:31→18:33)
[2019-06-03] MEDS: GABAPENTIN 100 MG CAPSULE (FP) PO SCH ×2 (10:38→21:58)
[2019-06-03] MEDS: PRENATAL VITAMINS W/ FOLIC ACID TABLET (FP) PO SCH (10:38)
[2019-06-03] MEDS: SULFAMETHOXAZOLE/TRIMETHOPRIM 800MG/160MG D.S. TABLET PO SCH ×2 (10:38→21:58)
[2019-06-03] MEDS: EMTRICITABINE 200MG/TENOFOVIR 300MG PO SCH (10:38)
[2019-06-03] MEDS: DOLUTEGRAVIR SODIUM 50 MG TABLET (NON-FORMULARY) PO SCH (10:38)
[2019-06-03] MEDS: THIAMINE HCL 100 MG TABLET (FP) PO SCH (21:58)
[2019-06-03] MEDS: MELATONIN 5 MG TABLETS PO PRN (21:58)
[2019-06-04] MEDS: NYSTATIN 500,000 UNITS/5 ML SUSPENSION PO SCH ×2 (00:44→06:52)
[2019-06-04 07:43] VITALS: BP 107/64; PULSE 106; TEMP 99.4
--- NOTE | 2019-06-04 10:55 | DS ---
[facility] Rehab Discharge Summary - [facility] Rehab Discharge Summary Admission Date: 05/30/19 Discharge Date: 06/04/19 - History Present History: Alcohol dependence, Cocaine dependence, Opioid dependence Pertinent Past History: 54M w/ pmh of HIV(dx 2005, no meds), HepC(no meds). Heroin(nasal) 3bag daily for 35ys. Has used IV heroin in the past. Last usage ~05/24/19. Denies blackouts. OD'd x2, latest was 2-5ys prior. Tried cocaine but no regular usage. Denies intentional fentanyl, EtOH. Smokes 2cig daily. Last detox in Apr 2019, relapsed after 1d. Substance-free for 1yr during inpatient rehab 2ys prior. Had outpatient methadone clinic 5ys prior. Undomiciled x2ys. Panhandles for money. Patient endorses pain in the gums, crampy shooting pain in BLE. Denies fever, chills, recent IVDU, dysuria, diarrhea. Was admitted at [facility](05/24/19 - ) for fever. W/u showed a possible prostatic abscess, UCX growing MSSA. Patient was treated with gabapentin for BLE neuropathy, bactrim for prostatic abscess, nystatin suspension for thrush, truvada and tivicay for HIV. - Discharge Physical Exam Vital Signs: Vital Signs Temperature 99.4 F 06/04/19 10:00 Pulse Rate 106 H 06/04/19 10:00 Respiratory Rate 20 06/04/19 10:00 Blood Pressure 107/64 06/04/19 10:00 O2 Sat by Pulse Oximetry (%) Pertinent Admission Physical Exam Findings: Physical General Appearance: No Apparent Distress, Thin, Irritable, Anxious HEENTM: MIA, many missing teeth, poor dentition Respiratory; No Respiratory Distress, No Accessory Muscle Use Neck: Supple Cardiology: S1, S2. Abdominal: +BS Musculoskeletal: full range of Motion. gait steady with cane, Neurological:Alert, no neurological deficits noted Integumentary: Dry, Warm - Treatment Discharge Condition: Outpatient referral accepted (Medically stable for discharge.Referral was made to [facility] in the [place].) Hospital Course: medically stable for discharge - Medication Discharge Medications: Ambulatory Orders Dolutegravir Sodium [Tivicay] 50 mg PO DAILY #30 tablet 05/29/19 Emtricitabine/Tenofovir [Truvada -] 1 tab PO DAILY #30 tablet 05/29/19 Gabapentin [Neurontin -] 100 mg PO BID #30 capsule 05/29/19 Nystatin Oral Suspension - [Nystatin Oral Susp [id number] Units/5 ML -] 500,000 units PO Q6HPO #1 bottle 05/29/19 Sulfamethoxazole/Trimethoprim [Bactrim DS -] 1 each PO BID #56 tablet 05/29/19 - Medication-Assisted Treatment (MAT) Medication-Assisted Treatment (MAT): No - Discharge Instructions Diet, activity, other medical instructions: Diet: as tolerated Activity: as tolerated Other medical instructions: Patient is encouraged to continue with medical care for HIV and HepC; follow up with aftercare referral. - Follow-up Referral Minutes to complete discharge: 15 - AMA Did Patient Leave Against Medical Advice: No Additional Comments: This is an early discharge; patient was encouraged to stay but had no medical or psychological problems that required immediate treatment.
== END 2019-06-04 09:30 | disposition home or self-care (01) | DRG 772 ==
LOC: YASAS 18:11 → Y3W 19:58
PROVIDERS: ADMIT Neuromusculoskeletal Medicine & OMM; ATTEND Neuromusculoskeletal Medicine & OMM
PROC: HZ42ZZZ Group Counseling for Substance Abuse Treatment, Cognitive-Behavioral (ICD-10-PCS; principal; 2019-05-30)
DX: F11.20 Opioid dependence, uncomplicated (principal); F14.20 Cocaine dependence, uncomplicated; F17.210 Nicotine dependence, cigarettes, uncomplicated; Z21 Asymptomatic human immunodeficiency virus [HIV] infection status; B18.2 Chronic viral hepatitis C; Z87.438 Personal history of other diseases of male genital organs

== ENCOUNTER 2019-06-28 18:01 | Inpatient (IN) | payer OTHER ==
[2019-06-28 21:23] VITALS: BMI 20.7
--- NOTE | 2019-06-28 23:30 | HP ---
"COWS - Scale Resting Pulse: 1= [place] 81-100 Sweatin=Flushed/Facial Moisture Restless Observation: 0= Sits Still Pupil Size: 2= Moderately Dilated (Pupils = 4 mm) Bone or Joint Aches: 0= None Runny Nose/ Eye Tearin= Nasal Congestion GI Upset > 30mins: 0= None Tremor Observation: 4= Gross Tremor/Twitching Yawning Observation: 0= None Anxiety or Irritability: 0= None Goose Flesh Skin: 0=Smooth Skin COWS Score: 10 CIWA Score Nausea/Vomitin-No Nausea/No Vomiting Muscle Tremors: 4-Moderate,w/Arms Extend Anxiety: 0-No Anxiety, at Ease Agitation: 0-Normal Activity Paroxysmal Sweats: 3 (Increased facial moisture) Orientation: 3-Disoriented Date>2 days Tacttile Disturbances: 0-None Auditory Disturbances: 0-None Visual Disturbances: 0-None Headache: 0-None Present CIWA-Ar Total Score: 10 - Admission Criteria OASAS Guidelines: Admission for Medically Managed Detox: Requires at least one of the followin. CIWA greater than 12 2. Seizures within the past 24 hours 3. Delirium tremens within the past 24 hours 4. Hallucinations within the past 24 hours 5. Acute intervention needed for co occurring medical disorder 6. Acute intervention needed for co occurring psychiatric disorder 7. Severe withdrawal that cannot be handled at a lower level of care (continued vomiting, continued diarrhea, abnormal vital signs) requiring intravenous medication and/or fluids 8. Patient presents the following: Acute intervention needed for co-occurring med or psych disorder Admission Criteria Met: Admission criteria met Admitting History and Physical - Smoking History Smoking history: Unknown if ever smoked Have you smoked in the past 12 months: No Aproximately how many cigarettes per day: 3 - Alcohol/Substance Use Hx Alcohol Use: No Admission ROS BHS - HPI Chief Complaint: I need detox. For heroin. Allergies/Adverse Reactions: Allergies Allergy/AdvReac Type Severity Reaction Status Date / Time No Known Allergies Allergy Verified 06/28/19 21:12 History of Present Illness: 54 yo presents w/ opiate withdrawal symptoms. States here for heroin detox. States came here from [facility]. States unsure why he was there. Poor historian. Heroin use since age 14. States current use is 2 bags/day via inhalation. Denies methadone use. UTox: + MOP/OXY/MTD. MARIE: 0.0 Hx: OD x 3 , Last 8 months ago: States no Narcan kit Denies alcohol use. Denies other illicit substances Nicotine use since age 14. Now smokes 3 cigs/day PMHx : HIV+ (Non-compliant w/meds): Hx: + RPR; (L) knee pain - uses a cane for balance: Hx: PPD + Suture in old abd scar. Unsure of when or where had surgery. NON-COMPLIANT W/ ALL MEDICATIONS. Denies Seizures. CXR: 05/24/2019: WNL EK05/24/2019: NSR MHHx:Denies depression. Denies SI/. No MH meds. SHx: Homeless; Unemployed. Denies legal issues. Search Terms: Collins DormanFilippo, 1965 Search Date: 06/28/2019 11:38:50 PM The Drug Utilization Report below displays all of the controlled substance prescriptions, if any, that your patient has filled in the last twelve months. The information displayed on this report is compiled from pharmacy submissions to the Department, and accurately reflects the information as submitted by the pharmacies. This report was requested by: Aracely Jiménez | Reference #: [id number] There are no results for the search terms that you entered. Exam Limitations: Other (Poor historian) - Ebola screening Have you traveled outside of the country in the last 21 days: No (N) Have you had contact with anyone from an Ebola affected area: No Have you been sick,other than usual withdrawal symptoms: No Do you have a fever: No - Review of Systems Constitutional: Chills, Diaphoresis, Unintentional Wgt. Loss EENT: reports: Blurred Vision, Nose Congestion Respiratory: reports: No Symptoms reported Cardiac: reports: No Symptoms Reported GI: reports: No Symptoms Reported : reports: No Symptoms Reported Musculoskeletal: reports: Joint Pain ((L) knee pain.), Other (Legs are weak. Uses a cane,.) Integumentary: reports: No Symptoms Reported Neuro: reports: Weakness Endocrine: reports: No Symptoms Reported Hematology: reports: Anemia, Other (HIV) Psychiatric: reports: Anxious, Disorientated (Unsure of date. Knows in hospital for detox. Knows PHI.) Patient History - Patient Medical History Hx Anemia: No Hx Asthma: No Hx Chronic Obstructive Pulmonary Disease (COPD): No Hx Cancer: No Hx Cardiac Disorders: Yes Hx Congestive Heart Failure: No Hx Hypertension: No Hx Hypercholesterolemia: No Hx Pacemaker: No HX Cerebrovascular Accident: No Hx Seizures: No Hx Dementia: No Hx Diabetes: No Hx Gastrointestinal Disorders: No Hx Liver Disease: Yes (Hep C ) Hx Genitourinary Disorders: No Hx Sexually Transmitted Disorders: Yes Hx Renal Disease (ESRD): No Hx Thyroid Disease: No Hx Human Immunodeficiency Virus (HIV): Yes (as per pt 3-4 years) Hx Hepatitis C: Yes (No treatment ) Hx Depression: Yes Hx Suicide Attempt: No Hx Bipolar Disorder: No Hx Schizophrenia: No - Patient Surgical History Past Surgical History: Yes Hx Neurologic Surgery: No Hx Cataract Extraction: No Hx Cardiac Surgery: No Hx Lung Surgery: No Hx Breast Surgery: No Hx Breast Biopsy: No Hx Abdominal Surgery: Yes (peptic ulcer 1994) Hx Appendectomy: No Hx Cholecystectomy: No Hx Genitourinary Surgery: No Hx Section: No Hx Orthopedic Surgery: No Other Surgical History: I&D OF ABSCESS RT. 4TH FINGER. Anesthesia Reaction: No - PPD History Results: CXR neg 05/24/19 PPD to be Administered?: No - Smoking Cessation Smoking history: Unknown if ever smoked Have you smoked in the past 12 months: No Cigars Per Day: 0 Hx Chewing Tobacco Use: No Initiated information on smoking cessation: No - Substance & Tx. History Hx Alcohol Use: Yes Hx Substance Use: Yes Substance Use Type: Alcohol, Heroin Hx Substance Use Treatment: Yes (deto, rehab) - Substances abused Heroin Other (specify): sniff Substance route: Inhalation Frequency: Daily Amount used: 3 bags Age of first use: 15 Date of last use: 06/28/19 Alcohol Substance route: Oral Frequency: Daily Amount used: 3 cans of beer Age of first use: 35 Date of last use: 06/27/19 Admission Physical Exam BHS - Vital Signs Vital Signs: Vital Signs - 24 hr 06/28/19 21:11 Temperature 97.3 F L Pulse Rate 90 Respiratory 16 Rate Blood Pressure 130/87 - Physical General Appearance: Yes: Mild Distress, Tremorous, Sweating (Increased facial moisture) HEENTM: Yes: Hearing grossly Normal, Normocephalic, MIA (Pupils = 4 mm), Other (White patches back of throat/thrush lesions) Respiratory: Yes: Lungs Clear (Pulse Ox = 98 %), Normal Breath Sounds, No Respiratory Distress Neck: Yes: No masses,lesions,Nodules, Supple Breast: Yes: Breast Exam Deferred Cardiology: Yes: Regular Rhythm, Regular Rate, S1, S2 Abdominal: Yes: Non Tender, Flat, Soft, Increased Bowel Sounds, Surgical Scar ( Old healed surgical scar w/ one thick, twisted, blueish suture protruding. Abd non-tender.) Genitourinary: Yes: Other (Thickened, scrotal skin, with scattered dried lesions. No increased warmth. No exudate. (+) tenderness upon palpation. No penile discharge.) Back: Yes: Normal Inspection Musculoskeletal: Yes: full range of Motion, Gait Steady (w/ use of cane) Extremities: Yes: Normal Capillary Refill (Peripheral pulses +), Tremors Neurological: Yes: Alert, Disoriented (Does not know date or year. Knows in hospital for detox. Poor historian.) Integumentary: Yes: Normal Color, Dry (Dry, flaky, skin w/ scratch osorio. Decreased skin turgor.), Warm, Diaphoresis (Increased facial moisture.), Rash ( Scattered dry, silvery, flaky rash on elbows, arms, legs), Other Lymphatic: Yes: Within Normal Limits - Diagnostic (1) Oral candidiasis Current Visit: Yes Status: Chronic (2) Alcohol dependence with uncomplicated withdrawal Current Visit: Yes Status: Acute (3) Opioid dependence with withdrawal Current Visit: Yes Status: Acute (4) Ambulates with cane Current Visit: Yes Status: Chronic (5) Chronic pain of left lower extremity Current Visit: Yes Status: Chronic (6) Dry skin dermatitis Current Visit: Yes Status: Chronic (7) HIV (human immunodeficiency virus infection) Current Visit: Yes Status: Chronic Qualifiers: HIV symptom status: unspecified Qualified Code(s): B20 - Human immunodeficiency virus [HIV] disease Comment: Reports no medication taken for 2 years and no follow up with medical care (8) History of positive PPD Current Visit: Yes Status: Chronic (9) History of positive serological reaction for syphilis Current Visit: Yes Status: Chronic (10) Left knee pain Current Visit: Yes Status: Chronic Qualifiers: Chronicity: chronic Qualified Code(s): M25.562 - Pain in left knee; G89.29 - Other chronic pain (11) Nonadherence to medication Current Visit: Yes Status: Chronic (12) Weight loss Current Visit: Yes Status: Chronic (13) Cellulitis of scrotum Current Visit: Yes Status: Chronic Comment: Thickened scrotal skin, with dried lesions. No increased warmth. (+) tenderness. Cleared for Admission [facility] - Detox or Rehab [facility] Level of Care: Medically Managed Detox Regimen/Protocol: Methadone/Valium (Methadone/Ativan), Not Applicable ( Methadone/Ativan) Claeared for Rehab Admission: No Breathalyzer - Breathalyzer Breathalyzer: 0 Urine Drug Screen - Test Device Lot number: [id number] Expiration date: 02/08/21 - Control Is test valid?: Yes - Results Drug screen NEGATIVE: Yes Urine drug screen results: MOP-Opiates, OXY-Oxycodone, MTD-Methadone Inpatient Rehab Admission - Rehab Decision to Admit Inpatient rehab admission?: No"
[2019-06-29] MEDS ORDERED: ACETAMINOPHEN 325 MG TABLET (FP) PO PRN ×2 (00:24)
[2019-06-29] MEDS ORDERED: MAGNESIUM HYDROX 2400MG/30ML ORAL SUSPENSION 30 ML CUP PO PRN (00:24)
[2019-06-29] MEDS ORDERED: BISMUTH SUBSALICYLATE 524 MG/30 ML UD PO PRN (00:24)
[2019-06-29] MEDS ORDERED: MAGNESIUM CITRATE 300 ML BOTTLE PO PRN (00:24)
[2019-06-29] MEDS ORDERED: MENTHOL/PHENOL 1 EACH UD MM PRN (00:24)
[2019-06-29] MEDS ORDERED: MAG HYDROX/AL HYDROX/SIMETH 30 ML UNIT-DOSE CUP PO PRN (00:24)
[2019-06-29] MEDS ORDERED: MELATONIN 5 MG TABLETS PO PRN (00:24)
[2019-06-29] MEDS ORDERED: METHADONE HCL 10 MG TABLET (FOR DETOX USE ONLY) PO ONE (00:24)
[2019-06-29] MEDS ORDERED: IBUPROFEN 400 MG TABLET (FP) PO PRN (00:24)
[2019-06-29] MEDS ORDERED: LORazepam 2 MG TABLET PO SCH (05:00)
[2019-06-29] MEDS: NYSTATIN 500,000 UNITS/5 ML SUSPENSION PO SCH ×3 (06:59→18:55)
[2019-06-29] MEDS ORDERED: METHADONE HCL 10 MG TABLET PO ONE (10:00)
--- NOTE | 2019-06-29 10:31 | PN ---
[facility] CIWA - CIWA Score Nausea/Vomitin-No Nausea/No Vomiting Muscle Tremors: 2 Anxiety: 3 Agitation: 0-Normal Activity Paroxysmal Sweats: 3 Orientation: 0-Oriented Tacttile Disturbances: 0-None Auditory Disturbances: 0-None Visual Disturbances: 0-None Headache: 1-Very Mild CIWA-Ar Total Score: 9 BHS COWS - Scale Resting Pulse: 1= [place] 81-100 Sweatin= Beads of Sweat on Face Restless Observation: 1= Difficult to Sit Still Pupil Size: 0= Normal to Room Light Bone or Joint Aches: 0= None Runny Nose/ Eye Tearin= None GI Upset > 30mins: 0= None Tremor Observation of Outstretched Hands: 2= Slight Tremor Visible Yawning Observation: 1= 1-2x During Session Anxiety or Irritability: 1=Feels Anxious/Irritable Goose Flesh Skin: 0=Smooth Skin COWS Score: 9 S Progress Note (SOAP) Subjective: c/o sweats, anxiety, shakes, and headache. Objective: 06/29/19 10:29 Vital Signs 06/29/19 09:28 Temperature 97.7 F Pulse Rate 81 Respiratory 18 Rate Blood Pressure 115/62 Labs pending. Assessment: 06/29/19 10:29 AOX3, in no acute respiratory distress. Full ROM, ambulating in the unit with a cane. Withdrawal symptoms. Plan: continue detox. Increase fluids.
[2019-06-29] MEDS: PRENATAL VITAMINS W/ FOLIC ACID TABLET (FP) PO SCH (11:49)
[2019-06-29] MEDS: LORazepam 1 MG TABLET PO SCH ×3 (11:49→23:10)
[2019-06-29] MEDS: SULFAMETHOXAZOLE/TRIMETHOPRIM 800MG/160MG D.S. TABLET PO SCH ×2 (11:49→23:09)
[2019-06-29] MEDS: CLOTRIMAZOLE 1% CREAM 15 GM TUBE TP SCH ×2 (11:49→23:10)
[2019-06-29] MEDS: THIAMINE HCL 100 MG TABLET (FP) PO SCH (23:10)
[2019-06-30] MEDS: NYSTATIN 500,000 UNITS/5 ML SUSPENSION PO SCH ×3 (00:24→17:59)
[2019-06-30] MEDS: LORazepam 1 MG TABLET PO SCH ×4 (06:12→23:59)
[2019-06-30] MEDS ORDERED: METHADONE HCL 5 MG TABLET (FOR DETOX USE ONLY) PO ONE (10:00)
[2019-06-30] MEDS: PRENATAL VITAMINS W/ FOLIC ACID TABLET (FP) PO SCH (10:09)
[2019-06-30] MEDS: SULFAMETHOXAZOLE/TRIMETHOPRIM 800MG/160MG D.S. TABLET PO SCH ×2 (10:09→23:59)
[2019-06-30] MEDS: CLOTRIMAZOLE 1% CREAM 15 GM TUBE TP SCH ×2 (10:15→23:59)
--- NOTE | 2019-06-30 10:47 | PN ---
[facility] CIWA - CIWA Score Nausea/Vomitin-Mild Nausea/No Vomiting Muscle Tremors: 2 Anxiety: 2 Agitation: 1-Slight > Activity Paroxysmal Sweats: 2 Orientation: 0-Oriented Tacttile Disturbances: 0-None Auditory Disturbances: 0-None Visual Disturbances: 0-None Headache: 0-None Present CIWA-Ar Total Score: 8 BHS COWS - Scale Resting Pulse: 1= [place] 81-100 Sweatin= Chills/Flushing Restless Observation: 1= Difficult to Sit Still Pupil Size: 0= Normal to Room Light Bone or Joint Aches: 1= Mild Discomfort Runny Nose/ Eye Tearin= None GI Upset > 30mins: 1= Stomach Cramp Tremor Observation of Outstretched Hands: 2= Slight Tremor Visible Yawning Observation: 0= None Anxiety or Irritability: 1=Feels Anxious/Irritable Goose Flesh Skin: 0=Smooth Skin COWS Score: 8 BHS Progress Note (SOAP) Subjective: Feels ok, medication working well Objective: 06/30/19 10:45 Last Vital Signs Temp Pulse Resp BP Pulse Ox 96.6 F L 83 18 108/63 06/30/19 09:30 06/30/19 09:30 06/30/19 09:30 06/30/19 09:30 06/30/19 10:46 Admission labs pending result Assessment: 06/30/19 10:46 Withdrawal sxs Plan: Continue detox Encouraged PO water hydration Follow up on admission lab results
[2019-06-30 11:02] LABS: HEMATOCRIT 24.2 % (35.4-49); HEMOGLOBIN 8.5 GM/dL (11.7-16.9); MCHC 35.2 g/dl (32.0-35.9); MEAN CELL VOLUME 85.3 fl (80-96); PLATELET COUNT 200 K/MM3 (134-434); RBC 2.84 M/mm3 (4.00-5.60); RDW 17.7 % (11.9-15.9); WHITE BLOOD COUNT 2.4 K/mm3 (4.0-10.0)
[2019-06-30 11:06] LABS: ALBUMIN 2.7 g/dl (3.4-5.0); BILIRUBIN,TOTAL 0.4 mg/dL (0.2-1); BLOOD UREA NITROGEN 10.7 mg/dL (7-18); CALCIUM 7.9 mg/dL (8.5-10.1); CREATININE 0.6 mg/dL (0.55-1.3); POTASSIUM 3.6 mmol/L (3.5-5.1); TOT PROT 7.8 g/dl (6.4-8.2)
[2019-06-30] MEDS: THIAMINE HCL 100 MG TABLET (FP) PO SCH (23:59)
[2019-07-01] MEDS ORDERED: LORazepam 0.5 MG TABLET PO PRN
[2019-07-01] MEDS: LORazepam 0.5 MG TABLET PO SCH ×4 (07:16→22:33)
[2019-07-01] MEDS: NYSTATIN 500,000 UNITS/5 ML SUSPENSION PO SCH ×3 (07:17→17:35)
[2019-07-01 09:07] LABS: RPR REACTIVE 1:1 (NONREACTIVE)
[2019-07-01 09:08] LABS: TREPONEMA ANTIBODY PREVIOUSLY REACTIVE (NONREACTIVE)
[2019-07-01] MEDS ORDERED: METHADONE HCL 10 MG TABLET (FOR DETOX USE ONLY) PO ONE (10:00)
--- NOTE | 2019-07-01 10:39 | PN ---
[facility] CIWA - CIWA Score Nausea/Vomitin-Mild Nausea/No Vomiting Muscle Tremors: 1-None Visible, but [place] Anxiety: 2 Agitation: 2 Paroxysmal Sweats: No Perspiration Orientation: 0-Oriented Tacttile Disturbances: 1-Very Mild Itch/Numbness Auditory Disturbances: 0-None Visual Disturbances: 0-None Headache: 1-Very Mild CIWA-Ar Total Score: 8 BHS COWS - Scale Resting Pulse: 1= [place] 81-100 Sweatin= No chills or Flushing Restless Observation: 1= Difficult to Sit Still Pupil Size: 1= Pupils >than Normal Bone or Joint Aches: 1= Mild Discomfort Runny Nose/ Eye Tearin= Nasal Congestion GI Upset > 30mins: 1= Stomach Cramp Tremor Observation of Outstretched Hands: 1= Tremor [place], Not Seen Yawning Observation: 1= 1-2x During Session Anxiety or Irritability: 1=Feels Anxious/Irritable Goose Flesh Skin: 0=Smooth Skin COWS Score: 9 [facility] Progress Note (SOAP) Subjective: alert,irritable,anxious,interrupted sleep,pain in the body Objective: 07/01/19 10:36 Laboratory Last Values WBC 2.4 K/mm3 (4.0-10.0) L 06/30/19 08:00 RBC 2.84 M/mm3 (4.00-5.60) L 06/30/19 08:00 Hgb 8.5 GM/dL (11.7-16.9) L 06/30/19 08:00 Hct 24.2 % (35.4-49) L 06/30/19 08:00 MCV 85.3 fl (80-96) 06/30/19 08:00 MCH 30.0 pg (25.7-33.7) 06/30/19 08:00 MCHC 35.2 g/dl (32.0-35.9) 06/30/19 08:00 RDW 17.7 % (11.9-15.9) H 06/30/19 08:00 Plt Count 200 K/MM3 (134-434) D 06/30/19 08:00 MPV 9.0 fl (7.5-11.1) 06/30/19 08:00 Sodium 134 mmol/L (136-145) L 06/30/19 08:00 Potassium 3.6 mmol/L (3.5-5.1) 06/30/19 08:00 Chloride 99 mmol/L (98-107) 06/30/19 08:00 Carbon Dioxide 26 mmol/L (21-32) 06/30/19 08:00 Anion Gap 9 MMOL/L (8-16) 06/30/19 08:00 BUN 10.7 mg/dL (7-18) 06/30/19 08:00 Creatinine 0.6 mg/dL (0.55-1.3) 06/30/19 08:00 Est GFR (CKD-EPI)AfAm 132.11 06/30/19 08:00 Est GFR (CKD-EPI)NonAf 113.99 06/30/19 08:00 Random Glucose 137 mg/dL (74-106) H 06/30/19 08:00 Calcium 7.9 mg/dL (8.5-10.1) L 06/30/19 08:00 Total Bilirubin 0.4 mg/dL (0.2-1) 06/30/19 08:00 AST 27 U/L (15-37) 06/30/19 08:00 ALT 22 U/L (13-61) 06/30/19 08:00 Alkaline Phosphatase 60 U/L (45-117) 06/30/19 08:00 Total Protein 7.8 g/dl (6.4-8.2) 06/30/19 08:00 Albumin 2.7 g/dl (3.4-5.0) L 06/30/19 08:00 RPR Titer Reactive 1:1 (NONREACTIVE) H 06/30/19 08:00 T.pallidum Ab (MHA) Previously reactive (NONREACTIVE) 06/30/19 08:00 previouly treated for syphilis Assessment: 07/01/19 10:37 withdrawal symptom Plan: continue detox with methadone and ativan regimen,history of anemia,will give ferrous sulfate 325 mg po bid, discharge in am
[2019-07-01] MEDS: SULFAMETHOXAZOLE/TRIMETHOPRIM 800MG/160MG D.S. TABLET PO SCH ×2 (10:46→22:34)
[2019-07-01] MEDS: PRENATAL VITAMINS W/ FOLIC ACID TABLET (FP) PO SCH (10:46)
[2019-07-01] MEDS: CLOTRIMAZOLE 1% CREAM 15 GM TUBE TP SCH ×2 (10:48→22:39)
[2019-07-01] MEDS: FERROUS SO4 325 MG TABLET (FP) PO SCH ×2 (11:04→22:34)
[2019-07-01] MEDS: THIAMINE HCL 100 MG TABLET (FP) PO SCH (22:33)
[2019-07-01 23:48] LABS: EPI CELLS 4.1 /HPF (0-5/HPF); HYALINE CASTS 0 /lpf (0-8); PH,URINE 7.5 (5.0-8.0); URINE APPEARANCE CLEAR; URINE BILIRUBIN NEGATIVE (NEGATIVE); URINE COLOR YELLOW; URINE GLUCOSE (UA) NEGATIVE (NEGATIVE); URINE KETONE NEGATIVE (NEGATIVE); URINE LEUK ESTERASE 1+ (NEGATIVE); URINE NITRITE NEGATIVE (NEGATIVE); URINE PROTEIN TRACE (NEGATIVE); URINE RBC 1 /hpf (0-4); URINE UROBILINOGEN 0.2 mg/dL (0.2-1.0); URINE WBC 19 /hpf (0-5)
[2019-07-02] MEDS ORDERED: LORazepam 0.5 MG TABLET PO ONE (05:00)
[2019-07-02] MEDS ORDERED: METHADONE HCL 5 MG TABLET (FOR DETOX USE ONLY) PO ONE (06:00)
[2019-07-02] MEDS: NYSTATIN 500,000 UNITS/5 ML SUSPENSION PO SCH ×2 (06:42→11:00)
--- NOTE | 2019-07-02 09:02 | DS ---
[facility] Detox Discharge Summary Admission Date: 06/28/19 Discharge Date: 07/02/19 - History Present History: Alcohol Dependence, Cocaine Dependence, Opioid Dependence - Physical Exam Results Vital Signs: Vital Signs Temperature 98.1 F 07/01/19 17:34 Pulse Rate 102 H 07/01/19 17:34 Respiratory Rate 18 07/02/19 03:30 Blood Pressure 105/86 07/01/19 17:34 O2 Sat by Pulse Oximetry (%) Pertinent Admission Physical Exam Findings: pt arrived in withdrawals Laboratory Tests 06/30/19 06/30/19 06/30/19 08:00 08:00 08:00 WBC 2.4 L RBC 2.84 L Hgb 8.5 L Hct 24.2 L MCV 85.3 MCH 30.0 MCHC 35.2 RDW 17.7 H Plt Count 200 D MPV 9.0 Sodium 134 L Potassium 3.6 Chloride 99 Carbon Dioxide 26 Anion Gap 9 BUN 10.7 Creatinine 0.6 Est GFR (CKD-EPI)AfAm 132.11 Est GFR (CKD-EPI)NonAf 113.99 Random Glucose 137 H Calcium 7.9 L Total Bilirubin 0.4 AST 27 ALT 22 Alkaline Phosphatase 60 Total Protein 7.8 Albumin 2.7 L Urine Color Urine Appearance Urine pH Ur Specific [place] Urine Protein Urine Glucose (UA) Urine Ketones Urine Blood Urine Nitrite Urine Bilirubin Urine Urobilinogen Ur Leukocyte Esterase Urine WBC (Auto) Urine RBC (Auto) Urine Casts (Auto) U Epithel Cells (Auto) U Sm Round Cell (Auto) Urine Bacteria (Auto) RPR Titer Reactive 1:1 H T.pallidum Ab (MHA) Previously reactive 07/01/19 23:30 WBC RBC Hgb Hct MCV MCH MCHC RDW Plt Count MPV Sodium Potassium Chloride Carbon Dioxide Anion Gap BUN Creatinine Est GFR (CKD-EPI)AfAm Est GFR (CKD-EPI)NonAf Random Glucose Calcium Total Bilirubin AST ALT Alkaline Phosphatase Total Protein Albumin Urine Color Yellow Urine Appearance Clear Urine pH 7.5 Ur Specific [place] 1.010 Urine Protein Trace Urine Glucose (UA) Negative Urine Ketones Negative Urine Blood Negative Urine Nitrite Negative Urine Bilirubin Negative Urine Urobilinogen 0.2 Ur Leukocyte Esterase 1+ H Urine WBC (Auto) 19 Urine RBC (Auto) 1 Urine Casts (Auto) 0 U Epithel Cells (Auto) 4.1 U Sm Round Cell (Auto) None Urine Bacteria (Auto) 7.0 RPR Titer T.pallidum Ab (MHA) Vital Signs Temperature 98.1 F 07/01/19 17:34 Pulse Rate 102 H 07/01/19 17:34 Respiratory Rate 18 07/02/19 03:30 Blood Pressure 105/86 07/01/19 17:34 O2 Sat by Pulse Oximetry (%) today pt is aaox3 ambulating no acute distress no s/s of withdrawals - Treatment Hospital Course: Detox Protocol Followed, Detoxed Safely, Responded well, Discharged Condition Good, Rehab Referral Accepted Patient has Accepted a Rehab Referral to: pt referred [facility] inpatient [facility] - Medication Discharge Medications: Ambulatory Orders Dolutegravir Sodium [Tivicay] 50 mg PO DAILY #30 tablet 05/29/19 Emtricitabine/Tenofovir [Truvada -] 1 tab PO DAILY #30 tablet 05/29/19 Gabapentin [Neurontin -] 100 mg PO BID #30 capsule 05/29/19 Nystatin Oral Suspension - [Nystatin Oral Susp 617417 Units/5 ML -] 500,000 units PO Q6HPO #1 bottle 05/29/19 Sulfamethoxazole/Trimethoprim [Bactrim DS -] 1 each PO BID #56 tablet 05/29/19 - Diagnosis (1) Alcohol dependence with uncomplicated withdrawal Current Visit: Yes Status: Chronic (2) Opioid dependence with withdrawal Current Visit: Yes Status: Chronic (3) Ambulates with cane Current Visit: Yes Status: Chronic (4) Cellulitis of scrotum Current Visit: Yes Status: Chronic (5) Chronic pain of left lower extremity Current Visit: Yes Status: Chronic (6) Dry skin dermatitis Current Visit: Yes Status: Chronic (7) HIV (human immunodeficiency virus infection) Current Visit: Yes Status: Chronic Qualifiers: HIV symptom status: unspecified Qualified Code(s): B20 - Human immunodeficiency virus [HIV] disease (8) History of positive PPD Current Visit: Yes Status: Chronic (9) History of positive serological reaction for syphilis Current Visit: Yes Status: Chronic (10) Left knee pain Current Visit: Yes Status: Chronic Qualifiers: Chronicity: chronic Qualified Code(s): M25.562 - Pain in left knee; G89.29 - Other chronic pain (11) Nonadherence to medication Current Visit: Yes Status: Chronic (12) Oral candidiasis Current Visit: Yes Status: Chronic (13) Weight loss Current Visit: Yes Status: Chronic (14) Drug-induced mood disorder Current Visit: No Status: Acute (15) H/O abdominal surgery Current Visit: No Status: Acute (16) Insomnia secondary to depression with anxiety Current Visit: No Status: Acute (17) Prostate abscess Current Visit: No Status: Acute (18) Skin lesion due to intravenous drug abuse Current Visit: No Status: Acute (19) Substance induced mood disorder Current Visit: No Status: Acute (20) Substance-induced anxiety disorder Current Visit: No Status: Acute (21) Substance-induced sleep disorder Current Visit: No Status: Acute (22) Bilateral knee pain Current Visit: No Status: Chronic Qualifiers: Chronicity: chronic Qualified Code(s): M25.561 - Pain in right knee; M25.562 - Pain in left knee; G89.29 - Other chronic pain (23) Cocaine dependence Current Visit: No Status: Chronic Qualifiers: Substance use status: uncomplicated Qualified Code(s): F14.20 - Cocaine dependence, uncomplicated (24) Dermatillomania Current Visit: No Status: Chronic (25) Finger deformity Current Visit: No Status: Chronic Qualifiers: Laterality: right Qualified Code(s): M20.001 - Unspecified deformity of right finger(s) (26) Hepatitis C Current Visit: No Status: Chronic Qualifiers: Viral hepatitis chronicity: chronic Hepatic coma status: without hepatic coma Qualified Code(s): B18.2 - Chronic viral hepatitis C (27) History of seizure Current Visit: No Status: Chronic (28) Murmur, cardiac Current Visit: No Status: Chronic (29) Nicotine dependence Current Visit: No Status: Chronic Qualifiers: Nicotine product type: cigarettes Substance use status: uncomplicated Qualified Code(s): F17.210 - Nicotine dependence, cigarettes, uncomplicated (30) Poor compliance with medication Current Visit: No Status: Chronic (31) Positive PPD Current Visit: No Status: Resolved - AMA Did Patient Leave Against Medical Advice: No
[2019-07-02 09:29] VITALS: BP 114/66; PULSE 103; TEMP 97.2
[2019-07-02] MEDS: PRENATAL VITAMINS W/ FOLIC ACID TABLET (FP) PO SCH (11:00)
[2019-07-02] MEDS: FERROUS SO4 325 MG TABLET (FP) PO SCH (11:00)
[2019-07-02] MEDS: SULFAMETHOXAZOLE/TRIMETHOPRIM 800MG/160MG D.S. TABLET PO SCH (11:00)
[2019-07-02] MEDS: CLOTRIMAZOLE 1% CREAM 15 GM TUBE TP SCH (11:03)
== END 2019-07-02 13:25 | disposition other institution (70) | DRG 773 ==
LOC: YASAS 18:01 → Y6N 23:49
PROVIDERS: ADMIT Allergy & Immunology; ATTEND Allergy & Immunology
PROC: HZ2ZZZZ Detoxification Services for Substance Abuse Treatment (ICD-10-PCS; principal; 2019-06-28)
DX: F11.23 Opioid dependence with withdrawal (principal); F10.230 Alcohol dependence with withdrawal, uncomplicated; F14.20 Cocaine dependence, uncomplicated; F17.210 Nicotine dependence, cigarettes, uncomplicated; F19.24 Other psychoactive substance dependence with psychoactive substance-induced mood disorder; F19.280 Other psychoactive substance dependence with psychoactive substance-induced anxiety disorder; F19.282 Other psychoactive substance dependence with psychoactive substance-induced sleep disorder; F51.05 Insomnia due to other mental disorder; F42.4 Excoriation (skin-picking) disorder; B35.3 Tinea pedis; B37.0 Candidal stomatitis; B20 Human immunodeficiency virus [HIV] disease; L85.3 Xerosis cutis; N49.2 Inflammatory disorders of scrotum; M25.561 Pain in right knee; M25.562 Pain in left knee; G89.29 Other chronic pain; R76.11 Nonspecific reaction to tuberculin skin test without active tuberculosis; M20.001 Unspecified deformity of right finger(s); B18.2 Chronic viral hepatitis C; R01.1 Cardiac murmur, unspecified; R26.2 Difficulty in walking, not elsewhere classified; Z99.89 Dependence on other enabling machines and devices; Z91.14 Patient's other noncompliance with medication regimen; Z87.438 Personal history of other diseases of male genital organs; Z86.69 Personal history of other diseases of the nervous system and sense organs
CPT/HCPCS: 36415; 80053; 81003; 85027; 86593; 86780

== ENCOUNTER 2019-07-02 13:42 | Inpatient (IN) | payer OTHER ==
[2019-07-02] MEDS ORDERED: P-EPHED 60MG/TRIPROLIDI 2.5MG TABLET PO PRN (14:21)
[2019-07-02] MEDS ORDERED: LOPERAMIDE HCL 2 MG CAPSULE PO PRN (14:21)
[2019-07-02] MEDS ORDERED: MAGNESIUM CITRATE 300 ML BOTTLE PO PRN (14:21)
[2019-07-02] MEDS ORDERED: IBUPROFEN 400 MG TABLET (FP) PO PRN (14:21)
[2019-07-02] MEDS ORDERED: guaiFENesin 200 MG/10 ML 10 ML UNIT-DOSE CUPS PO PRN (14:21)
[2019-07-02] MEDS ORDERED: MENTHOL/PHENOL 1 EACH UD MM PRN (14:21)
[2019-07-02] MEDS ORDERED: NICOTINE POLACRILEX 4 MG GUM BUC PRN (14:21)
[2019-07-02] MEDS ORDERED: MAG HYDROX/AL HYDROX/SIMETH 30 ML UNIT-DOSE CUP PO PRN (14:21)
[2019-07-02] MEDS ORDERED: ACETAMINOPHEN 325 MG TABLET (FP) PO PRN (14:21)
[2019-07-02] MEDS ORDERED: MAGNESIUM HYDROX 2400MG/30ML ORAL SUSPENSION 30 ML CUP PO PRN (14:21)
--- NOTE | 2019-07-02 14:21 | HP ---
[facility] Rehab Assess/Revision - Admission History Admitted to Rehab from[facility] - Findings Detox History & Physical reviewed: Yes Concur with findings: Yes Inpatient Rehab Admission - Rehab Decision to Admit Inpatient rehab admission?: Yes - Initial Determination Are CD services needed?: Yes Free of communicable disease: Yes Not in need of hospitalization: Yes - Rehab Admission Criteria Previous failed treatment: Yes Poor recovery environment: Yes Comorbidities: Yes Lacks judgement: Yes Patient is meeting Inpatient Rehab admission criteria:: Yes
[2019-07-02] MEDS ORDERED: PT OWN MED DRAWER 7, Y5N ONE (19:12)
[2019-07-02] MEDS: hydrOXYzine PAMOATE 25 MG CAPSULE (FP) PO PRN (19:14)
[2019-07-02] MEDS: CLOTRIMAZOLE 10 MG TROCHE (FP) PO SCH ×2 (19:44→21:40)
[2019-07-02] MEDS: THIAMINE HCL 100 MG TABLET (FP) PO SCH (21:39)
[2019-07-02] MEDS ORDERED: MELATONIN 5 MG TABLETS PO PRN (22:00)
[2019-07-03] MEDS: CLOTRIMAZOLE 10 MG TROCHE (FP) PO SCH ×5 (05:55→21:48)
[2019-07-03] MEDS: NICOTINE 21 MG/24 HOURS TOPICAL PATCH TD SCH (09:34)
[2019-07-03] MEDS: hydrOXYzine PAMOATE 25 MG CAPSULE (FP) PO PRN (09:34)
[2019-07-03] MEDS: PRENATAL VITAMINS W/ FOLIC ACID TABLET (FP) PO SCH (09:34)
[2019-07-03] MEDS ORDERED: PT OWN MED DRAWER 7, Y5N ONE ×2 (17:17→18:58)
[2019-07-03] MEDS: THIAMINE HCL 100 MG TABLET (FP) PO SCH (21:48)
[2019-07-04] MEDS: CLOTRIMAZOLE 10 MG TROCHE (FP) PO SCH ×5 (06:42→21:40)
[2019-07-04] MEDS ORDERED: PT OWN MED DRAWER 7, Y5N ONE ×3 (08:28→17:03)
[2019-07-04] MEDS: PRENATAL VITAMINS W/ FOLIC ACID TABLET (FP) PO SCH (09:53)
[2019-07-04] MEDS: NICOTINE 21 MG/24 HOURS TOPICAL PATCH TD SCH (09:53)
[2019-07-04] MEDS: hydrOXYzine PAMOATE 25 MG CAPSULE (FP) PO PRN ×2 (09:53→14:15)
[2019-07-04] MEDS: THIAMINE HCL 100 MG TABLET (FP) PO SCH (21:40)
[2019-07-05] MEDS ORDERED: PT OWN MED DRAWER 7, Y5N ONE (04:06)
[2019-07-05] MEDS: CLOTRIMAZOLE 10 MG TROCHE (FP) PO SCH ×2 (06:22→10:34)
[2019-07-05 07:05] VITALS: BP 99/69; PULSE 103; TEMP 97.6
[2019-07-05] MEDS: PRENATAL VITAMINS W/ FOLIC ACID TABLET (FP) PO SCH (10:34)
[2019-07-05] MEDS: NICOTINE 21 MG/24 HOURS TOPICAL PATCH TD SCH (10:34)
--- NOTE | 2019-07-05 13:25 | PN ---
[facility] Progress Note Note: At approximately 11:30am, junior technical writer was notified by YADIEL Sheets that patient walked off unit and was in lobby. [facility] Yudith Calvo. Patient was witnessed by VASYL Desouza, leaving hospital premises despite encouragement to return to unit. Security staff informed patient walked off unit and left hospital premises. Patient left prior to GARDENING MANAGER assessment and evaluation. Vital Signs Period Temp Pulse Resp BP Sys/[place] Pulse Ox Last 24 Hr 97.6 F 103 18-18 99/69
== END 2019-07-05 11:22 | disposition left against medical advice (07) | DRG 770 ==
LOC: YASAS 13:42 → Y3W 13:44
PROVIDERS: ADMIT Neuromusculoskeletal Medicine & OMM; ATTEND Neuromusculoskeletal Medicine & OMM
PROC: HZ42ZZZ Group Counseling for Substance Abuse Treatment, Cognitive-Behavioral (ICD-10-PCS; principal; 2019-07-02)
DX: F11.20 Opioid dependence, uncomplicated (principal); F10.20 Alcohol dependence, uncomplicated; B20 Human immunodeficiency virus [HIV] disease; B37.0 Candidal stomatitis; L85.3 Xerosis cutis; M79.605 Pain in left leg; M25.562 Pain in left knee; G89.29 Other chronic pain; R63.4 Abnormal weight loss; N49.2 Inflammatory disorders of scrotum; R26.2 Difficulty in walking, not elsewhere classified; Z99.89 Dependence on other enabling machines and devices; Z91.14 Patient's other noncompliance with medication regimen